=== PATIENT | female | born 1945 | race African-American/Black ===

== ENCOUNTER → 2016-06-30 | Outpatient (CLI) | payer MEDICARE, OTHER ==
[2014-03-11 09:51] VITALS: BP 185/91
[~2016-06-30] MED LIST: AMLO5TAB2 PO; ATEN50TA PO; FERR-26 PO; Flexeril; IOHEXOL 180 MG/ML 10 ML VIAL. ONE; LISI10TA2 PO; OXYC-323 PO; PANT40TA5 PO; TRAM50TA PO; methylPREDNISolone ACETATE 40 MG/ML VIAL. ONE; methylPREDNISolone ACETATE 80 MG/ML VIAL. ONE
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
== END | disposition home or self-care (01) ==
LOC: PNCL 08:26
PROVIDERS: ATTEND Anesthesiology
DX: M50.123 Cervical disc disorder at C6-C7 level with radiculopathy (principal); M96.1 Postlaminectomy syndrome, not elsewhere classified; M19.90 Unspecified osteoarthritis, unspecified site; I25.10 Atherosclerotic heart disease of native coronary artery without angina pectoris; I10 Essential (primary) hypertension
CPT/HCPCS: 62321; J1030; J1040

== ENCOUNTER 2016-07-06 20:53 | Emergency (ER) | payer MEDICARE, OTHER ==
[~2016-07-06 20:53] MED LIST changes: -IOHEXOL 180 MG/ML 10 ML VIAL. ONE; -methylPREDNISolone ACETATE 40 MG/ML VIAL. ONE; -methylPREDNISolone ACETATE 80 MG/ML VIAL. ONE
[2016-07-06 21:31] LABS: BILIRUBIN,URINE NEGATIVE (NEG); GLUCOSE,URINE NEGATIVE (NEG); NITRITE,URINE NEGATIVE (NEG); PROTEIN,URINE NEGATIVE (NEG-TRACE); UROBILINOGEN,URINE 0.2 mg/dL (0.2 mg/dL)
[2016-07-06 21:33] LABS: BASO # 0.1 x10^3/uL (0.0-0.2); BASO % 1 % (0-3); EOS % 1 % (0-3); HEMATOCRIT 41.7 % (36.0-47.0); HEMOGLOBIN 13.2 g/dL (12.0-15.5); LYMPH # 2.4 x10^3/uL (1.0-4.8); LYMPH % 28 % (24-48); MEAN CORPUSCULAR HEMOGLOBIN 26 pg (25-35); MEAN CORPUSCULAR HGB CONC 32 g/dL (31-37); MEAN CORPUSCULAR VOLUME 83 fL (79-100); MONO % 9 % (0-9); NEUT % 61 % (31-73); PLATELET COUNT 396 x10^3/uL (140-400); RED BLOOD COUNT 5.05 x10^6/uL (3.50-5.40); RED CELL DISTRIBUTION WIDTH 27.1 % (11.5-14.5); WHITE BLOOD COUNT 8.6 x10^3/uL (4.0-11.0)
[2016-07-06 21:38] LABS: BACTERIA,URINE 0 /HPF (0-FEW); RBC,URINE OCC /HPF (0-2); SQUAMOUS EPITHELIAL CELL,UR OCC /LPF; WBC,URINE 0 /HPF (0-4)
[2016-07-06 21:44] LABS: CALCIUM 9.2 mg/dL (8.5-10.1); CREATININE 1.2 mg/dL (0.6-1.0); GFR 53.9; POTASSIUM 4.1 mmol/L (3.5-5.1)
[2016-07-06] MEDS ORDERED: FENTANYL PF 100 MCG/2 ML VIAL. IV ONE (21:45)
--- NOTE | 2016-07-06 21:46 | PHYS DOC ---
Past Medical History Past Medical History: Hypertension, Other Additional Past Medical Histor: chronic lower back pain Past Surgical History: Cholecystectomy, Other Additional Past Surgical Histo: right mastectomy; cervical neck; left bunionectomy,CARDIAC STENT Alcohol Use: None Drug Use: None Adult General Chief Complaint Chief Complaint: FLANK PAIN [facility] HPI This is a 70-year-old female who is presenting with some right-sided abdominal pain that does radiate somewhat into her flank area as well. She denies any dysuria or hematuria. She states it developed rather suddenly several hours ago. She's never had symptoms like this before. She states she has had a laparatomy and still has her appendix and gallbladder. She denies any history of stones. She has one cardiac stent and hypertension. She rates her pain a 7/ 10 on the pain scale. She denies any fever or chills. She denies any nausea or vomiting. She denies any chest pain or shortness of breath. States she's had normal bowel movements. Review of Systems Review of Systems Constitutional: Denies fever or chills [] Eyes: Denies change in visual acuity, redness, or eye pain [] HENT: Denies nasal congestion or sore throat [] Respiratory: Denies cough or shortness of breath [] Cardiovascular: No additional information not addressed in HPI [] GI: Has abdominal pain, denies nausea, denies vomiting, denies bloody stools or diarrhea [] : Denies dysuria or hematuria [] Musculoskeletal: Denies back pain or joint pain [] Integument: Denies rash or skin lesions [] Neurologic: Denies headache, focal weakness or sensory changes [] Endocrine: Denies polyuria or polydipsia [] Current Medications Current Medications Current Medications Medications (Trade) Dose Ordered Sig/[facility] Start Time Stop Time Status Last Admin Dose Admin Fentanyl Citrate (Fentanyl 2ml Vial) 50 mcg 1X ONCE 07/06/16 21:45 07/06/16 21:46 DC 07/06/16 22:02 50 MCG Allergies Allergies Allergies Coded Allergies Type Severity Reaction Last Updated Verified aspirin Allergy Unknown 07/21/13 Yes codeine Allergy Unknown 07/21/13 Yes diazepam Allergy Unknown 07/21/13 Yes hydrocodone Allergy Unknown 07/21/13 Yes ibuprofen Allergy Unknown 07/21/13 Yes morphine Allergy Unknown 07/21/13 Yes promethazine Allergy Unknown 07/21/13 Yes Uncoded Allergies Type Severity Reaction Last Updated Verified IM SHOTS Allergy Unknown 07/21/13 Physical Exam Physical Exam Constitutional: Well developed, well nourished, no acute distress, non-toxic appearance. [] HENT: Normocephalic, atraumatic, bilateral external ears normal, oropharynx moist, no oral exudates, nose normal. [] Eyes: PERRLA, EOMI, conjunctiva normal, no discharge. [] Neck: Normal range of motion, no tenderness, supple, no stridor. [] Cardiovascular:Heart rate regular rhythm, no murmur [] Lungs & Thorax: Bilateral breath sounds clear to auscultation [] Abdomen: Bowel sounds normal, soft, mild RLQ tenderness, no masses, no pulsatile masses. [] Skin: Warm, dry, no erythema, no rash. [] Back: No tenderness, right CVA tenderness. [] Extremities: No tenderness, no cyanosis, no clubbing, ROM intact, no edema. [] Neurologic: Alert and oriented X 3, normal motor function, normal sensory function, no focal deficits noted. [] Psychologic: Affect normal, judgement normal, mood normal. [] Current Patient Data Vital Signs Vital Signs Date Time Temp Pulse Resp B/P Pulse Ox O2 Delivery O2 Flow Rate FiO2 07/06/16 22:02 16 Nasal Cannula 07/06/16 20:58 97.7 101 199/94 97 97.7 Lab Values Laboratory Tests Test 07/06/16 21:18 White Blood Count 8.6x10^3/uL (4.0-11.0) Red Blood Count 5.05x10^6/uL (3.50-5.40) Hemoglobin 13.2g/dL (12.0-15.5) Hematocrit 41.7% (36.0-47.0) Mean Corpuscular Volume 83fL (79-100) Mean Corpuscular Hemoglobin 26pg (25-35) Mean Corpuscular Hemoglobin Concent 32g/dL (31-37) Red Cell Distribution Width 27.1% (11.5-14.5) H Platelet Count 396x10^3/uL (140-400) Neutrophils (%) (Auto) 61% (31-73) Lymphocytes (%) (Auto) 28% (24-48) Monocytes (%) (Auto) 9% (0-9) Eosinophils (%) (Auto) 1% (0-3) Basophils (%) (Auto) 1% (0-3) Neutrophils # (Auto) 5.3x10^3uL (1.8-7.7) Lymphocytes # (Auto) 2.4x10^3/uL (1.0-4.8) Monocytes # (Auto) 0.8x10^3/uL (0.0-1.1) Eosinophils # (Auto) 0.1x10^3/uL (0.0-0.7) Basophils # (Auto) 0.1x10^3/uL (0.0-0.2) Platelet Estimate Pending Urine Collection Type Unknown Urine Color Yellow Urine Clarity Clear Urine pH 6.0 Urine Specific [place] 1.015 Urine Protein Negativemg/dL (NEG-TRACE) Urine Glucose (UA) Negativemg/dL (NEG) Urine Ketones (Stick) Negativemg/dL (NEG) Urine Blood Negative (NEG) Urine Nitrite Negative (NEG) Urine Bilirubin Negative (NEG) Urine Urobilinogen Dipstick 0.2mg/dL (0.2 mg/dL) Urine Leukocyte Esterase Negative (NEG) Urine RBC Occ/HPF (0-2) Urine WBC 0/HPF (0-4) Urine Squamous Epithelial Cells Occ/LPF Urine Bacteria 0/HPF (0-FEW) Urine Mucus Slight/LPF Sodium Level 143mmol/L (136-145) Potassium Level 4.1mmol/L (3.5-5.1) Chloride Level 104mmol/L (98-107) Carbon Dioxide Level 26mmol/L (21-32) Anion Gap 13 (6-14) Blood Urea Nitrogen 14mg/dL (7-20) Creatinine 1.2mg/dL (0.6-1.0) H Estimated GFR (Cockcroft-Gault) 53.9 Glucose Level 104mg/dL (70-99) H Calcium Level 9.2mg/dL (8.5-10.1) Troponin I Quantitative < 0.017ng/mL (0.000-0.055) Laboratory Tests 07/06/16 21:18 Laboratory Tests 07/06/16 21:18 EKG EKG EKG as interpreted by me shows a sinus rhythm with a rate of 96 bpm. There are some lateral ST findings in V5 and V6 that are borderline but there is no STEMI criteria on this EKG. Intervals are normal. Radiology/Procedures Radiology/Procedures IMPRESSION 1. 2 mm left renal stone and possible punctate bilateral renal stones. There is no evidence of obstructive uropathy. 2. 2.0 cm lesion within the right kidney, the stability of which compared to the prior studies favors a benign cyst. 3. 2 mm and 3 mm right middle and lower lobe nodules, the larger of which is new compared to the prior study. Followup can be performed according to Fleischner society criteria. 4. Chronic mild compression deformities of T11 and L2, possibly pathologic given lytic and sclerotic changes in these vertebral segments. There is also mixed lytic and sclerotic change within the sacrum. The long-term stability favors in etiology such as Paget's disease rather than metastatic disease. Correlate with clinical history. Course & Med Decision Making Course & Med Decision Making Pertinent Labs and Imaging studies reviewed. (See chart for details) This 70-year-old female has some right-sided lateral abdominal pain and right- sided flank pain and will have full laboratory workup and a CT of her abdomen/ pelvis. At this time her CBC is unremarkable. Her urine does not demonstrate any signs of infection or blood. She does not appear to be in any acute distress. My reassessment, the patient feels improved after pain medications. Her laboratory workup is unremarkable. There are no signs of infection. Her CT demonstrates some chronic findings in her T11 and L2 vertebrae that are likely lytic and sclerotic changes that are chronic. She also has some right middle and right lower lobe nodules which are new compared to a prior study. I indicated these findings to the patient and she will follow up with her primary care doctor. I see no indication at this time to admit the patient a hospital in light of her nonacute findings and normal laboratory workup. She will follow up closely with Dr. Segura in the next 2-3 days and I will provide her pain medication until that time. Dragon Disclaimer Dragon Disclaimer This electronic medical record was generated, in whole or in part, using a voice recognition dictation system. Departure Departure Impression: Primary Impression: Right flank pain Disposition: 01 HOME, SELF-CARE Admitting Physician: Other Condition: STABLE Referrals: LYDIA SEGURA MD (PCP) Patient Instructions: Flank Pain, [id number] Additional Instructions: Please take your pain medication as prescribed. Return to the ER if you develop any worsening of your symptoms. Follow up with Dr. Segura in the next 2-3 days for your lung findings and your flank pain. Scripts Oxycodone/Apap 5-325 (Percocet 5-325 Mg Tablet)1 Each Tablet1 Tab PO PRN Q6HRS PRN PAIN #14 TAB Ref 0 Prov:CYNTHIA CALHOUN DO 07/06/16 CYNTHIA CALHOUN DO Jul 06, 2016 21:46
--- NOTE | 2016-07-06 22:02 | RAD ---
PROCEDURE Abdomen and pelvis CT without intravenous contrast. HISTORY Right flank pain. TECHNIQUE Computed tomographic images the and pelvis were obtained without contrast. One or more of the following individualized dose reduction techniques were utilized for this examination: 1. Automated exposure control; 2. Adjustment of the mA and/or kV according to patient size; 3. Use of iterative reconstruction technique. COMPARISON None. FINDINGS Evaluation of the lower thorax demonstrates a 2 mm nodule within the right middle lobe and 3 mm nodule within the right lower lobe. There is lower lobe atelectasis or scarring. There is a moderate hiatal hernia. There is coronary artery atherosclerosis. No hepatic lesion is seen. The gallbladder is surgically absent. The pancreas, spleen and adrenal glands are unremarkable. There is a 1-2 mm nonobstructing stone within the lower midzone of the left kidney. There may be punctate stones within the upper poles of both kidneys. There is no evidence of obstructive uropathy. There is a 2.0 cm hypodense lesion within the anterior lower midzone of the right kidney, likely a cyst. No abnormally thickened or dilated loop of bowel is seen. There is no pathologically enlarged lymph node. The uterus and ovaries are unremarkable. There are chronic appearing mild compression fractures of T11 and L2, both of which appear to be pathologic fractures associated with mixed lytic and sclerotic lesions. There are also mixed lytic and sclerotic changes involving the sacrum. IMPRESSION 1. 2 mm left renal stone and possible punctate bilateral renal stones. There is no evidence of obstructive uropathy. 2. 2.0 cm lesion within the right kidney, the stability of which compared to the prior studies favors a benign cyst. 3. 2 mm and 3 mm right middle and lower lobe nodules, the larger of which is new compared to the prior study. Followup can be performed according to Fleischner society criteria. 4. Chronic mild compression deformities of T11 and L2, possibly pathologic given lytic and sclerotic changes in these vertebral segments. There is also mixed lytic and sclerotic change within the sacrum. The long-term stability favors in etiology such as Paget's disease rather than metastatic disease. Correlate with clinical history. Electronically signed by: Shalonda Levine (Jul 06, 2016 22:01:27)
[2016-07-06] MEDS ORDERED: OXYC-323 PO (22:18)
[2016-07-06 22:21] VITALS: BP 145/90
[2016-07-06 22:39] LABS: PLT ESTIMATE ADEQUATE (ADEQUATE)
[2016-07-06 22:43] LABS: ANISOCYTOSIS MARKED; POIKILOCYTOSIS SLIGHT; TARGET CELLS PRESENT
[2016-07-06 22:44] LABS: OVALOCYTES FEW
--- NOTE | 2016-07-07 06:38 | EKG ---
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
== END 2016-07-06 22:40 | disposition home or self-care (01) ==
LOC: ER 20:53
DX: R10.9 Unspecified abdominal pain (principal); R10.31 Right lower quadrant pain; I10 Essential (primary) hypertension; G89.29 Other chronic pain; Z90.49 Acquired absence of other specified parts of digestive tract; Z88.6 Allergy status to analgesic agent; Z88.5 Allergy status to narcotic agent; Z88.8 Allergy status to other drugs, medicaments and biological substances
CPT/HCPCS: 36415; 74176; 80048; 81001; 84484; 85007; 85027; 93005; 96374; 99285; J3010

== ENCOUNTER 2016-07-10 19:11 | Inpatient (IN) | payer MEDICARE, OTHER ==
[~2016-07-10] VITALS: Ht 165.1 cm; Wt 83.5 kg
--- NOTE | 2016-07-10 20:11 | PHYS DOC ---
Past Medical History Past Medical History: Hypertension, Other Additional Past Medical Histor: chronic lower back pain Past Surgical History: Cholecystectomy, Other Additional Past Surgical Histo: right mastectomy; cervical neck; left bunionectomy,CARDIAC STENT Alcohol Use: None Drug Use: None Adult General Chief Complaint Chief Complaint: HIP PAIN HPI HPI Patient is a 70 year old female presents emergency department stating that she has having right lower back pain down into her right hip. Patient states that she was seen here a few days ago for the same pain and discomfort. Plenty looking into the chart she was seen here for right flank pain with a kidney stone noted. She was discharged that time with Percocet. Patient states that she has been taken Flexeril and Percocet for the pain and discomfort with no relief. Patient denies any numbness or tingling down to the lower extremity. She states that she has called her primary care physician Sunday and again today without any return call. She denies any new injury. She denies any loss of bowel or bladder. Patient at this time does not have any complaints of cough and shortness of breath or difficulty breathing. Review of Systems Review of Systems Constitutional: Denies fever or chills [] Eyes: Denies change in visual acuity, redness, or eye pain [] HENT: Denies nasal congestion or sore throat [] Respiratory: Denies cough or shortness of breath [] Cardiovascular: No additional information not addressed in HPI [] GI: Denies abdominal pain, nausea, vomiting, bloody stools or diarrhea [] : Denies dysuria or hematuria [] Musculoskeletal: chronic low back pain denies joint pain [] Integument: Denies rash or skin lesions [] Neurologic: Denies headache, focal weakness or sensory changes [] Current Medications Current Medications Current Medications Medications (Trade) Dose Ordered Sig/[facility] Start Time Stop Time Status Last Admin Dose Admin Fentanyl Citrate (Fentanyl 2ml Vial) 50 mcg 1X ONCE 07/10/16 20:15 07/10/16 20:16 DC 07/10/16 20:31 50 MCG Methylprednisolone Sodium Succinate (Solu-Medrol 125mg Vial) 125 mg 1X ONCE 07/10/16 20:15 07/10/16 20:16 DC 07/10/16 20:31 125 MG Allergies Allergies Allergies Coded Allergies Type Severity Reaction Last Updated Verified aspirin Allergy Unknown 07/21/13 Yes codeine Allergy Unknown 07/21/13 Yes diazepam Allergy Unknown 07/21/13 Yes hydrocodone Allergy Unknown 07/21/13 Yes ibuprofen Allergy Unknown 07/21/13 Yes morphine Allergy Unknown 07/21/13 Yes promethazine Allergy Unknown 07/21/13 Yes Uncoded Allergies Type Severity Reaction Last Updated Verified IM SHOTS Allergy Unknown 07/21/13 Physical Exam Physical Exam Constitutional: Well developed, well nourished, no acute distress, non-toxic appearance. [] HENT: Normocephalic, atraumatic, bilateral external ears normal, oropharynx moist, no oral exudates, nose normal. [] Eyes: PERRLA, EOMI, conjunctiva normal, no discharge. [] Neck: Normal range of motion, no tenderness, supple, no stridor. [] Cardiovascular:Heart rate regular rhythm, no murmur [] Lungs & Thorax: Bilateral breath sounds clear to auscultation [] Skin: Warm, dry, no erythema, no rash. [] Back: right lower back tenderness Extremities: No tenderness, no cyanosis, no clubbing, ROM intact, no edema. Peripheral pulses 2+ cap refill brisk less than 2 seconds. Patient with good sensation noted to the lower extremities. Neurologic: Alert and oriented X 3, normal motor function, normal sensory function, no focal deficits noted. [] Psychologic: Affect normal, judgement normal, mood normal. [] Current Patient Data Vital Signs Vital Signs Date Time Temp Pulse Resp B/P Pulse Ox O2 Delivery O2 Flow Rate FiO2 07/10/16 20:31 Room Air 07/10/16 19:18 98.1 92 24 214/100 100 98.1 EKG EKG [] Radiology/Procedures Radiology/Procedures [] Course & Med Decision Making Course & Med Decision Making Pertinent Labs and Imaging studies reviewed. (See chart for details) [address] Balbuena in regards to patient's inability to get back pain under control. Patient had used Percocet and Flexeril at home. She was provided with 50 mics of fentanyl here in the emergency department as well as Solu- Medrol with no relief. He didn't into the hospital. Patient did have a CT scan done on the of abdomen and pelvis. Questionable Paget's disease of the lower back versus metastatic issues. I suspect further workup will need to be completed with admission. Patient agrees with admission at this time. Orders written. [] Dragon Disclaimer Dragon Disclaimer This electronic medical record was generated, in whole or in part, using a voice recognition dictation system. Departure Departure Impression: Primary Impression: Back pain Disposition: ADMITTED INPATIENT Admitting Physician: Jen Balbuena Condition: STABLE Referrals: LYDIA FITZPATRICK MD (PCP) JADE YIP APRN Jul 10, 2016 20:11
[2016-07-10] MEDS ORDERED: fentaNYL PF VIAL 100 MCG/2 ML VIAL IM ONE (20:15)
[2016-07-10] MEDS ORDERED: methylPREDNISolone SOD SUCC PF 125 MG/2 ML VIAL. IM ONE (20:15)
[2016-07-10] MEDS ORDERED: ONDANSETRON PF 4 MG/2 ML VIAL. IV PRN (21:30)
[2016-07-10 21:58] LABS: BASO % 1 % (0-3); EOS % 1 % (0-3); HEMATOCRIT 40.5 % (36.0-47.0); HEMOGLOBIN 13.1 g/dL (12.0-15.5); LYMPH # 2.1 x10^3/uL (1.0-4.8); LYMPH % 24 % (24-48); MEAN CORPUSCULAR HEMOGLOBIN 27 pg (25-35); MEAN CORPUSCULAR HGB CONC 32 g/dL (31-37); MEAN CORPUSCULAR VOLUME 82 fL (79-100); MONO % 6 % (0-9); NEUT % 69 % (31-73); PLATELET COUNT 367 x10^3/uL (140-400); RED BLOOD COUNT 4.93 x10^6/uL (3.50-5.40); RED CELL DISTRIBUTION WIDTH 26.3 % (11.5-14.5); WHITE BLOOD COUNT 8.7 x10^3/uL (4.0-11.0)
--- NOTE | 2016-07-10 22:01 | ACF ---
Admission Forms Criteria BACK PAIN Clinical Indications for Admission to Inpatient Care (Place 'X' for any and all applicable criteria): Admission is indicated for ANY ONE of the following (1)(2)(3)(4)(5)(6): [X]I. Inpatient admission required rather than observation care (Also use Back Pain: Observation Care as appropriate) because of ANY ONE of the following [ ]a) Severe pain requiring acute inpatient management [ ]b) Immediate inpatient surgery [X]c) Other condition, treatment or monitoring requiring inpatient admission [ ]II. Spine fracture with significant damage or threat of damage to vertebral column or spinal cord [ ]III. Progressive or severe neurologic deficit [ ]IV. Suspected spinal infection (e.g., epidural abscess, vertebral osteomyelitis)(10) [ ]V. Suspected cause requires inpatient treatment (eg, aortic dissection) [ ]. Cauda equina syndrome as indicated by ANY ONE of the following (9): [ ]a) Bowel dysfunction [ ]b) Bladder dysfunction [ ]c) Saddle anesthesia [ ]d) Neurologic abnormality suggesting cauda equina impingement Extended stay beyond goal length of stay may be needed for (3)(25): [ ]a) Spinal cord compression from stenosis, disk, or tumor (8)(9) [ ]b) Traumatic or pathologic vertebral fracture (33) [ ]c) Vertebral infection(10) [ ]d) Severe pain that is difficult to control [ ]e) Older patients(65 years or older) The original [employer] content created by [employer] has been revised. The portions of the content which have been revised are identified through the use of italic text or in bold, and [facility] has neither reviewed nor approved the modified material. All other unmodified content is copyright [employer]. Please see references footnoted in the original [facility] Admission Criteria Met?: Yes BRIDGET DUPREE Jul 10, 2016 22:00
[2016-07-10 22:13] LABS: CALCIUM 9.6 mg/dL (8.5-10.1); GFR 66.5; POTASSIUM 3.9 mmol/L (3.5-5.1)
[2016-07-10 22:19] LABS: ALBUMIN 4.3 g/dL (3.4-5.0); ALBUMIN/GLOBULIN RATIO 1.2 (1.0-1.7); TOTAL BILIRUBIN 0.3 mg/dL (0.2-1.0)
[2016-07-10 22:35] LABS: ANISOCYTOSIS MOD; PLT ESTIMATE ADEQUATE (ADEQUATE); POIKILOCYTOSIS SLIGHT
[2016-07-10] MEDS: HYDROmorphone 2 MG/ML VIAL IV PRN (22:38)
[2016-07-10] MEDS ORDERED: ASPI-482 PO (22:48)
[2016-07-10 23:08] VITALS: BP 172/95
[2016-07-11] MEDS: HYDROmorphone 2 MG/ML VIAL IV PRN ×3 (01:57→06:40)
[2016-07-11 03:10] VITALS: BP 153/77
[2016-07-11 04:47] LABS: BASO % 0 % (0-3); EOS % 0 % (0-3); HEMATOCRIT 38.9 % (36.0-47.0); HEMOGLOBIN 12.3 g/dL (12.0-15.5); LYMPH # 0.6 x10^3/uL (1.0-4.8); LYMPH % 8 % (24-48); MEAN CORPUSCULAR HEMOGLOBIN 26 pg (25-35); MEAN CORPUSCULAR HGB CONC 32 g/dL (31-37); MEAN CORPUSCULAR VOLUME 83 fL (79-100); MONO % 1 % (0-9); NEUT % 91 % (31-73); PLATELET COUNT 352 x10^3/uL (140-400); RED BLOOD COUNT 4.68 x10^6/uL (3.50-5.40); RED CELL DISTRIBUTION WIDTH 26.2 % (11.5-14.5); WHITE BLOOD COUNT 7.4 x10^3/uL (4.0-11.0)
[2016-07-11 05:05] LABS: CALCIUM 9.5 mg/dL (8.5-10.1); CREATININE 1.1 mg/dL (0.6-1.0); GFR 59.6; POTASSIUM 4.6 mmol/L (3.5-5.1)
[2016-07-11 06:54] LABS: ANISOCYTOSIS MARKED; PLT ESTIMATE ADEQUATE (ADEQUATE)
[2016-07-11 07:00] VITALS: BP 146/78
[2016-07-11] MEDS: LISINOPRIL 10 MG TABLET PO SCH (08:31)
[2016-07-11] MEDS: ASPIRIN ENTERIC COATED 81 MG TABLET.DR. PO SCH (08:31)
[2016-07-11] MEDS: FERROUS SULFATE 325 MG TABLET. PO SCH (08:31)
[2016-07-11] MEDS: amLODIPine BESYLATE 5 MG TABLET PO SCH (08:32)
[2016-07-11] MEDS: TRAMADOL 50 MG TABLET. PO PRN ×2 (08:32→17:31)
[2016-07-11] MEDS: PANTOPRAZOLE 40 MG TABLET.DR. PO SCH (08:32)
--- NOTE | 2016-07-11 08:41 | PDOC ---
Provider Note Provider Note dictated, back pain, acute decompensation, better now but was to have MRI and NS consult as OP, known lytic changes from Pagets vs cancer ANGELINE AGUIRRE MD Jul 11, 2016 08:41
[2016-07-11] MEDS: ALPRAZolam 0.25 MG TABLET PO PRN ×2 (10:58→20:51)
[2016-07-11 11:00] VITALS: BP 151/77
[2016-07-11] MEDS: OXYCODONE/APAP 5/325 TABLET. PO PRN ×2 (12:22→20:51)
--- NOTE | 2016-07-11 12:34 | RAD ---
PROCEDURE Lumbar spine MRI without contrast. HISTORY Pain. TECHNIQUE Multiplanar and multi sequence magnetic resonance imaging of the lumbar spine was performed without contrast. COMPARISON None. FINDINGS There is grade 1 anterolisthesis of L4 on L5, measuring 5 mm. There is minimal grade 1 anterolisthesis of L5 on S1, measuring 2 mm. There is grade 1 anterolisthesis of L1 on L2 measuring 4 mm, a component of which is due to a mild chronic L2 compression fracture with slight retropulsion of the L2 cortex into the central canal. There is heterogeneous signal within T11 with associated mild decreased T1 vertebral body height, also likely due to a chronic fracture. There is also diffusely heterogeneous signal throughout the remainder of the vertebral and sacral marrow, likely due to fatty marrow placement. The conus terminates at L1. There is a filum lipoma, measuring 2 mm in caliber. There is no evidence of a tethered cord. There are small simple appearing renal cysts. There is suspected slight congenital narrowing of the central canal at the lumbar levels. There is slight epidural lipomatosis. At L1-L2, there is a disc bulge. There is mild facet arthropathy. There is slight hypertrophy of the ligamentum flavum. There is mild left foraminal stenosis. At L2-L3, there is a disc bulge and endplate remodeling. There is mild facet arthropathy. There is hypertrophy of the ligamentum flavum. There is mild left greater than right foraminal stenosis. There is minimal central canal stenosis. At L3-L4, there is a disc bulge and endplate remodeling. There is mild facet arthropathy. There is hypertrophy of the ligamentum flavum. There is no stenosis. At L4-L5, there is a disc bulge and endplate remodeling. There is severe facet arthropathy. There is hypertrophy of the ligamentum flavum. There is grade 1 anterolisthesis. There is mild bilateral foraminal stenosis. There is severe central canal stenosis. At L5-S1, there is a diffuse disc bulge with posterior lateral endplate osteophytosis. There is mild facet arthropathy. There is mild to moderate bilateral foraminal stenosis. There is mild central canal stenosis. IMPRESSION 1. Multilevel degenerative change throughout the lumbar spine, resulting in stenosis as described in detail above. Findings are most significant at L4-L5, resulting in severe central canal stenosis. These findings are similar compared to the prior study. 2. Stable mild chronic compression deformities of T11 and L2. There is heterogeneous marrow signal at these levels which may be due to heterogeneous marrow replacement, Paget's disease or pathologic fractures. The stability compared to the prior study favors benignity. 3. Suspected slight congenital narrowing of the central canal and mild epidural lipomatosis. 4. Small filum lipoma. 5. Grade 1 anterolisthesis of L4 on L5. Electronically signed by: Shalonda Levine (Jul 11, 2016 12:34:02)
--- NOTE | 2016-07-11 14:11 | PDOC ---
SUBJECTIVE Subjective Pt seen examined. Full consult to follow. Exam suggests potential right hip pathology. Will check MRI right hip. OBJECTIVE Vital Signs Vital Signs Date Time Temp Pulse Resp B/P Pulse Ox O2 Delivery O2 Flow Rate FiO2 07/11/16 12:22 18 99 Room Air 07/11/16 11:00 98.0 87 16 151/77 99 Room Air 98.0 07/11/16 09:32 19 97 Room Air 07/11/16 08:32 18 97 Room Air 07/11/16 08:32 73 146/78 07/11/16 08:31 73 146/78 07/11/16 08:00 Room Air 07/11/16 07:10 18 97 Room Air 07/11/16 07:00 97.7 73 18 146/78 97 Room Air 97.7 07/11/16 06:40 98 Room Air 07/11/16 04:11 18 98 Room Air 07/11/16 03:10 97.7 72 20 153/77 98 Room Air 97.7 07/11/16 01:57 96 Room Air 07/10/16 23:08 97.7 78 16 172/95 96 Room Air 97.7 07/10/16 22:38 18 97 07/10/16 22:30 Room Air 07/10/16 21:55 89 18 169/81 97 Room Air 07/10/16 20:31 Room Air 07/10/16 19:18 98.1 92 24 214/100 100 Room Air 98.1 I & O Intake and Output 07/11/16 06:59 Intake Total 600 ml Balance 600 ml Intake Oral 600 ml # Voids 3 COMMENT Lab Laboratory Tests Test 07/10/16 21:50 07/11/16 04:27 White Blood Count 8.7x10^3/uL (4.0-11.0) 7.4x10^3/uL (4.0-11.0) Red Blood Count 4.93x10^6/uL (3.50-5.40) 4.68x10^6/uL (3.50-5.40) Hemoglobin 13.1g/dL (12.0-15.5) 12.3g/dL (12.0-15.5) Hematocrit 40.5% (36.0-47.0) 38.9% (36.0-47.0) Mean Corpuscular Volume 82fL (79-100) 83fL (79-100) Mean Corpuscular Hemoglobin 27pg (25-35) 26pg (25-35) Mean Corpuscular Hemoglobin Concent 32g/dL (31-37) 32g/dL (31-37) Red Cell Distribution Width 26.3% (11.5-14.5) 26.2% (11.5-14.5) Platelet Count 367x10^3/uL (140-400) 352x10^3/uL (140-400) Neutrophils (%) (Auto) 69% (31-73) 91% (31-73) Lymphocytes (%) (Auto) 24% (24-48) 8% (24-48) Monocytes (%) (Auto) 6% (0-9) 1% (0-9) Eosinophils (%) (Auto) 1% (0-3) 0% (0-3) Basophils (%) (Auto) 1% (0-3) 0% (0-3) Neutrophils # (Auto) 6.0x10^3uL (1.8-7.7) 6.7x10^3uL (1.8-7.7) Lymphocytes # (Auto) 2.1x10^3/uL (1.0-4.8) 0.6x10^3/uL (1.0-4.8) Monocytes # (Auto) 0.5x10^3/uL (0.0-1.1) 0.1x10^3/uL (0.0-1.1) Eosinophils # (Auto) 0.1x10^3/uL (0.0-0.7) 0.0x10^3/uL (0.0-0.7) Basophils # (Auto) 0.0x10^3/uL (0.0-0.2) 0.0x10^3/uL (0.0-0.2) Platelet Estimate Adequate (ADEQUATE) Adequate (ADEQUATE) Poikilocytosis Slight Anisocytosis Mod Marked Sodium Level 139mmol/L (136-145) 137mmol/L (136-145) Potassium Level 3.9mmol/L (3.5-5.1) 4.6mmol/L (3.5-5.1) Chloride Level 102mmol/L (98-107) 101mmol/L (98-107) Carbon Dioxide Level 25mmol/L (21-32) 23mmol/L (21-32) Anion Gap 12 (6-14) 13 (6-14) Blood Urea Nitrogen 23mg/dL (7-20) 21mg/dL (7-20) Creatinine 1.0mg/dL (0.6-1.0) 1.1mg/dL (0.6-1.0) Estimated GFR (Cockcroft-Gault) 66.5 59.6 BUN/Creatinine Ratio 23 (6-20) Glucose Level 115mg/dL (70-99) 152mg/dL (70-99) Calcium Level 9.6mg/dL (8.5-10.1) 9.5mg/dL (8.5-10.1) Total Bilirubin 0.3mg/dL (0.2-1.0) Aspartate Amino Transf (AST/SGOT) 15U/L (15-37) Alanine Aminotransferase (ALT/SGPT) 21U/L (14-59) Alkaline Phosphatase 343U/L (46-116) Total Protein 8.0g/dL (6.4-8.2) Albumin 4.3g/dL (3.4-5.0) Albumin/Globulin Ratio 1.2 (1.0-1.7) Segmented Neutrophils % 85% (35-66) Lymphocytes % 11% (24-48) Monocytes % 4% (0-10) GISELLE SALAZAR MD Jul 11, 2016 14:11
[2016-07-11 15:00] VITALS: BP 120/59
[2016-07-11] MEDS ORDERED: GADOBUTROL 10 MMOL/10 ML VIAL IV ONE (15:30)
--- NOTE | 2016-07-11 17:01 | RAD ---
PROCEDURE MRI study of the right hip with and without contrast HISTORY Right hip pain for 2 months. No known injury. TECHNIQUE Pre and post contrast enhanced MRI sequences of the right hip were performed. A total of 8 milliliters of Gadavist was given intravenously. COMPARISON None available. FINDINGS No bone marrow edema or fracture or marrow infiltrative process or avascular necrosis is seen. No hip joint effusion is seen. No abnormal enhancement of the hip joint is seen and therefore no synovitis is seen. The acetabular labrum is intact. No paralabral ganglion cyst is seen. The conjoined hamstring tendon is intact and no ischial tuberosity bursitis is seen. The iliopsoas tendon is intact and no iliopsoas bursitis is seen. Mild tendinosis of the gluteus anuradha tendon is seen at the level of the greater trochanter. No greater trochanteric bursitis is seen. No muscle edema is seen. No soft tissue mass or fluid collection or abscess is evident. No abnormal soft tissue enhancement is seen. IMPRESSION Mild tendinosis of the gluteus anuradha tendon. Otherwise, unremarkable MRI study of the right hip. Electronically signed by: Julio Cesar Velasquez MD (Jul 11, 2016 16:59:38)
--- NOTE | 2016-07-11 19:11 | HP ---
ADMIT DATE: 07/11/2016 ADMISSION DIAGNOSIS: Intractable back pain. HISTORY OF PRESENT ILLNESS: This is a 70-year-old female who presented to the Emergency Room because of right lower back pain down into her right hip. She had been seen a few days previously for the similar pain. She was treated with Percocet and Flexeril which did not control her pain. She has a history of Paget's. She was to be getting an MRI of her lumbar spine and to see Dr. Barkley for potential spinal stenosis or even possibility of a malignancy causing her pain. She is admitted for further evaluation, treatment and pain control. Overnight, she has had improvement in her pain and when I examined her this morning, her pain is controlled. PAST MEDICAL HISTORY: Hypertension, back pain, breast cancer and heart disease. PROCEDURES AND SURGERIES: Include cardiac stent, left bunionectomy, surgery on her cervical neck, right mastectomy and cholecystectomy. ALLERGIES: SHE HAS ALLERGIES TO ASPIRIN, CODEINE, DIAZEPAM, HYDROCODONE, IBUPROFEN, MORPHINE AND PROMETHAZINE, MOST OF THOSE APPEAR TO BE INTOLERANCES, ARE NOT TRUE ALLERGIES. HOME MEDICATIONS: Include amlodipine 5 mg daily, aspirin 81 daily, iron sulfate 325 daily, lisinopril 10 daily, oxycodone/APAP 5/325 1-2 q. 4-6 hours p.r.n., pantoprazole 40 mg daily, tramadol 50 mg q. 6 hours p.r.n. and Flexeril unknown dose. FAMILY HISTORY: Noncontributory. SOCIAL HISTORY: No tobacco or alcohol. She is unable to live independently and has routine office care. REVIEW OF SYSTEMS: HEENT: No allergy or cold symptoms. CONSTITUTIONAL: No fever, chills or weight loss. CARDIAC: No chest pain, palpitations. PULMONARY: No cough or wheezing. GASTROINTESTINAL: No nausea, vomiting or change in bowels. GENITOURINARY: No dysuria. MUSCULOSKELETAL: As above. NEUROLOGIC: Negative for headaches, seizures. PSYCHIATRIC: Negative for depression or malingering. PHYSICAL EXAMINATION: VITAL SIGNS: Stable. Blood pressure is now controlled as her pain is controlled. Respiratory rate is normal. Room air oxygen saturations are normal. GENERAL: She is not in acute distress. HEENT: Unremarkable. NECK: Supple. CARDIOVASCULAR: Heart regular rate and rhythm without murmur. LUNGS: Clear to auscultation bilaterally. ABDOMEN: Soft, nondistended, nontender. EXTREMITIES: There is pain in the right sacroiliac area and right hip area with some sciatic type radicular pain, but no foot drop or distal weakness. No clubbing, cyanosis or peripheral edema. LABORATORY DATA: Show an unremarkable CBC, but her RDW is high. There is slight anisocytosis, slight poikilocytosis. Chemistries unremarkable with the exception of a BUN of 23, glucose of 115 and alkaline phosphatase of 343. IMAGING STUDIES: Lumbar spine MRI shows multilevel degenerative changes with chronic compression deformities of T11 and L2. There are changes of Paget's disease or possibly pathologic fractures, but compared to prior studies there is not much change. She has grade 1 anterolisthesis of L4 and L5. ASSESSMENT AND PLAN: Back pain with Paget's versus pathological fractures and anterolisthesis of L4 and L5. She has been admitted for pain control. Her pain is controlled. She was to see Neurosurgery, Dr. Barkley who has been consulted with a definitive plan after his evaluation. W Rj AGUIRRE MD DR: ALBERTO/debi JOB#: [id number] / [id number]
[2016-07-11 19:25] VITALS: BP 137/74
[2016-07-11 23:26] VITALS: BP 117/60
[2016-07-12] MEDS: TRAMADOL 50 MG TABLET. PO PRN ×2 (01:11→07:47)
[2016-07-12 03:00] VITALS: BP 121/68
[2016-07-12 07:00] VITALS: BP 123/73
[2016-07-12] MEDS: LISINOPRIL 10 MG TABLET PO SCH (07:46)
[2016-07-12] MEDS: PANTOPRAZOLE 40 MG TABLET.DR. PO SCH (07:46)
[2016-07-12] MEDS: FERROUS SULFATE 325 MG TABLET. PO SCH (07:47)
[2016-07-12] MEDS: amLODIPine BESYLATE 5 MG TABLET PO SCH (07:47)
[2016-07-12] MEDS: ASPIRIN ENTERIC COATED 81 MG TABLET.DR. PO SCH (07:47)
[2016-07-12 11:00] VITALS: BP 155/68
[2016-07-12] MEDS: ALPRAZolam 0.25 MG TABLET PO PRN (11:22)
[2016-07-12] MEDS: OXYCODONE/APAP 5/325 TABLET. PO PRN (11:23)
--- NOTE | 2016-07-12 12:48 | RAD ---
MR CERVICAL SPINE HISTORY:PRIOR MRI PMIC 2013....PT C/O NECK PAIN W/BILATERAL HAND NUMBNESS...PRIOR NECK FUSIONReason: right sided neck pain with right cervical radiculitis / Spl. Instructions: / History: COMPARISON:MRI cervical spine from 01/05/2014 Technique: Sagittal T2, sagittal STIR, sagittal T1, and axial gradient echo imaging was obtained of the cervical spine. FINDINGS: There is osseous fusion C4-C5. Vertebral body heights are maintained. No significant anterolisthesis or retrolisthesis. There is multilevel degenerative disc height loss at most levels of the cervical spine. This is most pronounced at the level of C2-C3 where there is near complete loss of disc height with endplate irregularity and reactive endplate edema. The cord is normal in caliber with no cord signal abnormality identified. At C2-3 there is bilateral uncovertebral hypertrophy causing mild to moderate bilateral foraminal stenosis. Correlate for C3 radiculopathy there is also a disc osteophyte complex which causes mild mass effect upon the cord. At C3-C4 there is a disc osteophyte complex causing mild mass effect upon the cord. There is mild bilateral foraminal stenosis from uncovertebral hypertrophy and facet arthropathy. At C4-C5 there is bilateral uncovertebral hypertrophy worse on the right causing moderate right and mild left foraminal stenosis. Correlate for right C5 radiculopathy symptoms. At C5-C6 there is mild to moderate bilateral foraminal stenosis from uncovertebral hypertrophy. The disc osteophyte complex causes mild mass effect upon the cord. At C6-C7 there is moderate bilateral foraminal stenosis from uncovertebral hypertrophy. Correlate for C7 radiculopathy symptoms. At C7-T1 there is no spinal stenosis. Impression: - When compared to the prior exam from 01/05/2014, there has been significant progression of degenerative disease at the level of C2-C3 with worsening disc height loss and development of some reactive endplate edema. There is also moderate bilateral foraminal stenosis and mild mass effect upon the cord at this level. - Other levels of moderate degenerative disc disease are not significantly changed and are detailed at each level above. Electronically signed by: Omid Mejias (Jul 12, 2016 12:46:44)
--- NOTE | 2016-07-12 13:30 | PDOC ---
SUBJECTIVE Subjective Denies acute complaints at this time. Hip and back pain improved. Had injection with pain management today. OBJECTIVE Objective MRI hip essentially unremarkable Vital Signs Vital Signs Date Time Temp Pulse Resp B/P Pulse Ox O2 Delivery O2 Flow Rate FiO2 07/12/16 11:23 19 100 Room Air 07/12/16 11:00 98.0 81 16 155/68 100 Room Air 98.0 07/12/16 07:50 Room Air 07/12/16 07:47 18 99 Room Air 07/12/16 07:47 80 123/73 07/12/16 07:46 80 123/73 07/12/16 07:00 97.9 80 16 123/73 97 Room Air 97.9 07/12/16 03:00 98.4 73 18 121/68 99 Room Air 98.4 07/12/16 02:11 100 Room Air 07/12/16 01:11 100 Room Air 07/11/16 23:26 98.2 79 18 117/60 100 Room Air 98.2 07/11/16 21:52 17 98 Room Air 07/11/16 20:51 17 07/11/16 20:00 Room Air 07/11/16 19:25 105 18 137/74 98 Room Air 07/11/16 17:31 18 96 Room Air 07/11/16 15:00 98.5 91 16 120/59 96 Room Air 98.5 I & O Intake and Output 07/12/16 07:00 Intake Total 1220 ml Output Total 1000 ml Balance 220 ml Intake Oral 1220 ml Output Urine Total 1000 ml # Voids 2 PHYSICAL EXAM Physical Exam AA, NAD, WALLIS stable, sensation intact LT ASSESSMENT/PLAN Assessment/Plan 70F with low back and right hip pain with lumbar stenosis, spondylolisthesis, spondylosis -reports significant improvement today -continue therapy and non-surgical management at present time if remains neurologically stable -monitor for changes otherwise Problems: GISELLE SALAZAR MD Jul 12, 2016 13:30
[2016-07-12] MEDS ORDERED: CYCL10TA2 PO (14:12)
--- NOTE | 2016-07-12 14:20 | PDOC3 ---
Discharge Summary Visit Information Date of Admission: Jul 10, 2016 Date of Discharge: Jul 12, 2016 Final Diagnosis Problems Medical Problems: (1) Back pain Status: Acute (2) Intractable back pain Status: Acute (3) Spinal stenosis in cervical region Status: Acute (4) Spinal stenosis of lumbar region Status: Acute Brief Hospital Course Allergies Allergies Coded Allergies Type Severity Reaction Last Updated Verified aspirin Allergy Intermediate 07/11/16 Yes codeine Allergy Intermediate 07/11/16 Yes diazepam Allergy Intermediate 07/11/16 Yes hydrocodone Allergy Intermediate 07/11/16 Yes ibuprofen Allergy Intermediate 07/11/16 Yes morphine Allergy Intermediate 07/11/16 Yes promethazine Allergy Intermediate 07/11/16 Yes Uncoded Allergies Type Severity Reaction Last Updated Verified IM SHOTS Allergy Unknown 07/21/13 Vital Signs Vital Signs Date Time Temp Pulse Resp B/P Pulse Ox O2 Delivery O2 Flow Rate FiO2 07/12/16 12:23 18 100 Room Air 07/12/16 11:00 98.0 81 155/68 98.0 Lab Results Laboratory Tests Test 07/10/16 21:50 07/11/16 04:27 White Blood Count 8.7x10^3/uL (4.0-11.0) 7.4x10^3/uL (4.0-11.0) Red Blood Count 4.93x10^6/uL (3.50-5.40) 4.68x10^6/uL (3.50-5.40) Hemoglobin 13.1g/dL (12.0-15.5) 12.3g/dL (12.0-15.5) Hematocrit 40.5% (36.0-47.0) 38.9% (36.0-47.0) Mean Corpuscular Volume 82fL (79-100) 83fL (79-100) Mean Corpuscular Hemoglobin 27pg (25-35) 26pg (25-35) Mean Corpuscular Hemoglobin Concent 32g/dL (31-37) 32g/dL (31-37) Red Cell Distribution Width 26.3% (11.5-14.5) 26.2% (11.5-14.5) Platelet Count 367x10^3/uL (140-400) 352x10^3/uL (140-400) Neutrophils (%) (Auto) 69% (31-73) 91% (31-73) Lymphocytes (%) (Auto) 24% (24-48) 8% (24-48) Monocytes (%) (Auto) 6% (0-9) 1% (0-9) Eosinophils (%) (Auto) 1% (0-3) 0% (0-3) Basophils (%) (Auto) 1% (0-3) 0% (0-3) Neutrophils # (Auto) 6.0x10^3uL (1.8-7.7) 6.7x10^3uL (1.8-7.7) Lymphocytes # (Auto) 2.1x10^3/uL (1.0-4.8) 0.6x10^3/uL (1.0-4.8) Monocytes # (Auto) 0.5x10^3/uL (0.0-1.1) 0.1x10^3/uL (0.0-1.1) Eosinophils # (Auto) 0.1x10^3/uL (0.0-0.7) 0.0x10^3/uL (0.0-0.7) Basophils # (Auto) 0.0x10^3/uL (0.0-0.2) 0.0x10^3/uL (0.0-0.2) Platelet Estimate Adequate (ADEQUATE) Adequate (ADEQUATE) Poikilocytosis Slight Anisocytosis Mod Marked Sodium Level 139mmol/L (136-145) 137mmol/L (136-145) Potassium Level 3.9mmol/L (3.5-5.1) 4.6mmol/L (3.5-5.1) Chloride Level 102mmol/L (98-107) 101mmol/L (98-107) Carbon Dioxide Level 25mmol/L (21-32) 23mmol/L (21-32) Anion Gap 12 (6-14) 13 (6-14) Blood Urea Nitrogen 23mg/dL (7-20) 21mg/dL (7-20) Creatinine 1.0mg/dL (0.6-1.0) 1.1mg/dL (0.6-1.0) Estimated GFR (Cockcroft-Gault) 66.5 59.6 BUN/Creatinine Ratio 23 (6-20) Glucose Level 115mg/dL (70-99) 152mg/dL (70-99) Calcium Level 9.6mg/dL (8.5-10.1) 9.5mg/dL (8.5-10.1) Total Bilirubin 0.3mg/dL (0.2-1.0) Aspartate Amino Transf (AST/SGOT) 15U/L (15-37) Alanine Aminotransferase (ALT/SGPT) 21U/L (14-59) Alkaline Phosphatase 343U/L (46-116) Total Protein 8.0g/dL (6.4-8.2) Albumin 4.3g/dL (3.4-5.0) Albumin/Globulin Ratio 1.2 (1.0-1.7) Segmented Neutrophils % 85% (35-66) Lymphocytes % 11% (24-48) Monocytes % 4% (0-10) Brief Hospital Course Ms. Pike is a 70 old who presented with intractable back pain and admitted for pain control and further eval, she had an MRI of L-spine, C-spine and hip and consults with Neurosurgery, PM&R and anesthesia pain clinic and had an epidural steroid and is feeling much better and now capablwe of managing as an outpatient and wanting to be discharged. She will not require surgery at this time and she has f/u arranged. She had no medical problems while here and will continue her routine meds Discharge Information Condition at Discharge: Improved, Stable Follow Up: Weeks (1-2) Disposition/Orders: D/C to Home Scheduled Amlodipine Besylate (Amlodipine Besylate) 5 MG PO DAILY (Reported) Aspirin (Aspir 81) 1 TAB PO DAILY (Reported) Ferrous Sulfate (Ferrous Sulfate) 1 TAB PO DAILY (Reported) Lisinopril (Lisinopril) 1 TAB PO DAILY (Reported) Oxycodone/Apap 5-325 (Percocet 5-325 Mg Tablet) 1-2 TAB PO Q4-6HRS (Reported) Pantoprazole Sodium (Pantoprazole Sodium) 40 MG PO DAILY (Reported) Scheduled PRN Oxycodone/Apap 5-325 (Percocet 5-325 Mg Tablet) 1 TAB PO PRN Q6HRS PRN PRN PAIN Tramadol Hcl (Tramadol Hcl) 50 MG PO Q6H PRN PRN PAIN (Reported) Miscellaneous Medications ([Flexeril]) (Reported) ANGELINE AGUIRRE MD Jul 12, 2016 14:20
--- NOTE | 2016-07-13 01:05 | PAIN ---
DATE OF SERVICE: DIAGNOSES: 1. Cervical radiculopathy with cervical degenerative disk disease. 2. Lumbar radiculopathy with lumbar degenerative disk disease, lumbar spinal stenosis. HISTORY OF PRESENT ILLNESS: This is a 70-year-old female who presents as an inpatient, seen about 12 days ago for her cervical epidural steroid injection, doing very well, about 80% improvement with the cervical injection, reports now that she is having some significant pain in her low back and right hip and lower extremity. The patient reports this started about 3 days ago. It has been there for about 6 months, but much worse over the last 3 days. She presented to the Hospital Emergency Department because of the pain and was subsequently admitted for further workup. The patient reports it is hard to weightbear as she is having pain into the posterior gluteus, lateral thigh, anterior thigh, medial thigh into the medial knee and lower leg at times posteriorly as well, on the right side only. The patient reports no significant pain on the left side, is beginning to decrease her ability to ambulate, so she went to the hospital and was admitted. The patient did have an MRI scan yesterday showing severe central stenosis at the L4-L5 level with degenerative disk disease throughout the lumbar spine without any acute findings, also had MRI scan of the right hip showing unremarkable MRI study of the right hip with some mild tendinosis of the gluteus anuradha tendon on that side. The patient reports otherwise no new motor or sensory deficits or other complaints. She has significant pain, becoming more difficult to weightbear on the right side with her low back. PHYSICAL EXAMINATION: VITAL SIGNS: The patient's blood culture shows 137/68, pulse 72, respirations are 18, and temperature is 98.0 degrees Fahrenheit. Height is 5 feet 5 inches. GENERAL: The patient is awake, alert, oriented, appropriate, very pleasant demeanor. HEENT: Head shows normocephalic and atraumatic. Extraocular movements are intact and symmetrical. Oral cavity shows mucous membranes moist and pink. Dentition is intact. NECK: Shows anterior throat supple without palpable lymphadenopathy noted. Swallow reflex is symmetrical. CHEST: Shows normal on inspection. Breath sounds are clear to auscultation bilaterally. HEART: Shows S1 and S2 clear. ABDOMEN: Soft, nontender, and nondistended. No palpable organomegaly is noted. No rebound or guarding demonstrated. BACK: Shows spine grossly midline. The patient's neck shows good rotational motion of cervical spine, both laterally as well as extension and flexion without difficulty. Normal appearing thoracic kyphosis and lumbar lordotic curvature. No previous bruises, lesions or rashes are noted. The patient's lumbar paraspinous musculature is symmetrical on inspection with palpation, shows some moderate tenderness bilaterally, but without significant radiation. The patient has good rotation and motion of lumbar spine, both laterally greater than 10 degrees right and left as well as extension greater than 10 degrees, forward flexion of 45 degrees without difficulty. EXTREMITIES: The patient's lower extremities showed deep tendon reflexes at 1+ in the biceps and the patellar and tendo calcaneus tendons. Motor exam is approximately 4 on a scale of 5 with right dorsiflexion, extension, quadriceps and hamstring flexion 5/5 on the left. Options were discussed with the patient. The patient's old chart was reviewed and her current medication regimen was reviewed well and her review of systems updated today. We will proceed with a lumbar epidural steroid injection with fluoroscopic guidance. Risks were again discussed including, but not limited to bleeding, infection, possibility of epidural hematoma, subsequent neurologic compromise, dural puncture, headaches, spinal cord and/or nerve damage, side effects of steroid medication and poor results regarding pain control. The patient understands and wishes to proceed. The patient will return to clinic in approximately 2 weeks for followup, was counseled on return appointment, activity level and side effects to be aware of. DIAGNOSES: Lumbar radiculopathy with lumbar degenerative disk disease, lumbar spinal stenosis. PROCEDURE: Lumbar epidural steroid injection in translaminar approach at the L4-L5 level using C-arm fluoroscopic guidance under sterile prep and drape of local anesthetic. INDICATIONS: This is 120 mg Depo-Medrol plus disease preservative-free normal saline and 2 mL of Isovue for contrast. CONDITION AT DISCHARGE: Stable. The patient tolerated procedure well, had no complications. JESSIE DANIELLE MD DR: LUCIANA/debi JOB#: [id number] / [id number]
--- NOTE | 2016-07-13 01:40 | CONS ---
DATE OF CONSULTATION: LOCATION: She is in room 670. ATTENDING PHYSICIAN: Dr. Balbuena. The patient was seen at the request of Dr. Balbuena for rehab evaluation. HISTORY OF PRESENT ILLNESS: This is a 70-year-old female admitted through the Emergency Room on 07/11/2016 with intractable lower back pain with radiation to her right hip with cramps in both lower extremities. The patient has been using Percocet, Flexeril and tramadol without much help. She had history of Paget's disease. She had MRI scan of her lumbar vertebrae done which revealed multilevel degenerative disk disease and degenerative joint disease with severe central canal spinal stenosis at L4-L5 and stable mild chronic compression fractures of T11 and L2 and grade 1 anterolisthesis of L4 and L5 and DrErika ____ problem at the hip and he asked for an MRI scan of her right hip, which revealed mild tendinosis at the gluteus anuradha tendon at the level of the greater trochanter, no trochanteric bursitis was seen. The patient lives with her and son in the [place] [place] [facility], had three steps to enter the house with railing plus washer and dryer are in the basement. PAST MEDICAL HISTORY: Significant for hypertension, chronic lower back pain, carcinoma of breast, coronary artery disease status post stenting, left bunionectomy, surgery on her cervical neck, right mastectomy and cholecystectomy. ALLERGIES: SHE IS KNOWN ALLERGIC TO ASPIRIN, CODEINE, DIAZEPAM, HYDROCODONE, IBUPROFEN, MORPHINE AND PROMETHAZINE. MOST OF THESE APPEAR TO BE INTOLERANCES RATHER THAN TRUE ALLERGIES. 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 The patient also drops things out of her right hand. The patient denies any recent injury or fall. The patient admits she has some difficulty to empty the bladder on occasion. Denies any dysuria. PHYSICAL EXAMINATION: Today revealed an elderly female. She is alert, oriented to time, place, person and circumstance and follows commands appropriately. Moves all 4 extremities voluntarily where she had 4+/5 grade muscle strength and deep tendon reflexes are 2+ and symmetrical and maybe slightly exaggerated at both knees with absent right ankle jerk. She had equal perception of touch and pinprick sensation bilaterally except over palmar aspect of right hand where she has slightly decreased touch and pinprick sensation when compared to left side. Negative Tinel sign over median nerve at the wrist and ulnar nerve at the wrist and elbow and negative Phalen sign at both wrists. The patient has tenderness to palpation over right cervical paraspinal and upper trapezius muscle and also over right lumbar paraspinal muscles, sacroiliac joint area bilaterally and over right gluteal muscles. No significant tenderness to palpation over trochanteric bursa area. She also had tenderness to palpation over medial aspect of both knees. She had pain free range of motion of both hip joint. Crepitus on range of motion of both knee joints. She is independent with rolling from side to side. Complains of pain. She just had a lumbar epidural steroid injection done by Dr. Florencio Ferguson, so I did not get her up and see how she is getting up and walking around. Other than epidural injection site her skin is intact. She had a Band-Aid to the epidural injection site in her lower back. Straight leg raising test is negative bilaterally. ASSESSMENT: An elderly female with chronic lower back pain with radiological evidence of degenerative disk disease and degenerative joint disease of lumbar vertebrae with some degree of lumbar spinal stenosis at L4-L5 with lumbar radiculitis, also degenerative joint disease of both knees with some tendinitis and patient is status post previous cervical spine surgery with neck pain with right cervical radiculitis. To also rule out associated compression neuropathy involving right median nerve at the wrist. RECOMMENDATIONS: To try her with a lumbar corset, to get her up with physical therapy. She might need a roller walker to take home. I have reviewed with her proper body mechanics, to consider painful sacroiliac joint injection if her pain persists in the next day or so. I did not do any injections today as she just had lumbar epidural steroid injections. Dr. Balbuena, I appreciate asking me to participate in the care of this interesting patient. I will be glad to follow her with you as needed for her rehabilitation. JOHN BA MD DR: BETHANIE/debi JOB#: [id number] / [id number]
== END 2016-07-12 15:30 | disposition home or self-care (01) | DRG 552 ==
LOC: ER 19:11 → 6 SOUTH 21:15
PROVIDERS: ADMIT Family Medicine; ATTEND Family Medicine
DX: M43.16 Spondylolisthesis, lumbar region (principal); M54.9 Dorsalgia, unspecified; M88.9 Osteitis deformans of unspecified bone; G89.29 Other chronic pain; I10 Essential (primary) hypertension; I25.10 Atherosclerotic heart disease of native coronary artery without angina pectoris; M17.0 Bilateral primary osteoarthritis of knee; M47.26 Other spondylosis with radiculopathy, lumbar region; M48.02 Spinal stenosis, cervical region; M48.06 Spinal stenosis, lumbar region; M51.16 Intervertebral disc disorders with radiculopathy, lumbar region; M77.9 Enthesopathy, unspecified; N20.0 Calculus of kidney; Z85.3 Personal history of malignant neoplasm of breast; Z95.5 Presence of coronary angioplasty implant and graft; Z90.49 Acquired absence of other specified parts of digestive tract; Z90.11 Acquired absence of right breast and nipple; Z88.6 Allergy status to analgesic agent; Z88.5 Allergy status to narcotic agent; Z88.8 Allergy status to other drugs, medicaments and biological substances
CPT/HCPCS: 36415; 62323; 72141; 72148; 73723; 80048; 80053; 85007; 85027; 96372; A9585; J1040; J1170; J2930; J3010; 99285-25

== ENCOUNTER 2016-07-30 15:49 | Emergency (ER) | payer MEDICARE, OTHER ==
[~2016-07-30] VITALS: Ht 165.1 cm; Wt 84.8 kg
[~2016-07-30 15:49] MED LIST changes: +ASPI-482 PO; +CYCL10TA2 PO
--- NOTE | 2016-07-30 16:14 | ED.ADGEN ---
Past Medical History Past Medical History: Hypertension, Other Additional Past Medical Histor: chronic lower back pain Past Surgical History: Cholecystectomy, Other Additional Past Surgical Histo: right mastectomy; cervical neck; left bunionectomy,CARDIAC STENT Alcohol Use: None Drug Use: None Adult General Chief Complaint Chief Complaint: MECHANICAL FALL HPI HPI Patient is a 70 year old and, with a history of hypertension, CAD, chronic back pain for which she uses a brace, and follows with Dr. Marty sullivan pain management, who presents emergency department complaining of low back pain after a mechanical fall. Patient states that she was in the restroom of her adventist, she states that she slipped on the wet floor and fell, striking her lower back against the porcelain toilet bowl. She states she landed on her buttocks. She denies striking her head or neck. She states that she was able to get back up and ambulated was experiencing worsening pain in the right side of her lower back. She does that she has several "fractures" there which were diagnosed during a previous hospitalization for back pain several months ago. Patient states she wears a back brace for support, doesn't this time, states it has not been helping. She states she took a Flexeril and 10:00 this morning after the incident occurred but is not helped with her pain. She denies any weakness numbness or tingling, any chest pain or shortness of breath, any nausea or vomiting, any preceding symptoms before her fall, states it was purely mechanical due to the wet floor. She does take a daily baby aspirin, no other blood thinners. She states she is compliant with her medications for blood pressure, she does have a history of a cardiac stent. Review of Systems Review of Systems Constitutional: Denies fever or chills. [] Eyes: Denies change in visual acuity. [] HENT: Denies nasal congestion or sore throat. [] Respiratory: Denies cough or shortness of breath. [] Cardiovascular: Denies chest pain or edema. [] GI: Denies abdominal pain, nausea, vomiting, bloody stools or diarrhea. [] : Denies dysuria. [] Musculoskeletal: Denies back pain or joint pain. [] Integument: Denies rash. [] Neurologic: Denies headache, focal weakness or sensory changes. [] Endocrine: Denies polyuria or polydipsia. [] Lymphatic: Denies swollen glands. [] Psychiatric: Denies depression or anxiety. [] Current Medications Current Medications Current Medications Medications (Trade) Dose Ordered Sig/Danilo Start Time Stop Time Status Last Admin Dose Admin Cyclobenzaprine HCl (Flexeril) 5 mg 1X ONCE 07/30/16 16:15 07/30/16 16:16 DC 07/30/16 16:25 5 MG Fentanyl Citrate (Fentanyl 2ml Vial) 50 mcg 1X ONCE 07/30/16 17:00 07/30/16 17:01 DC 07/30/16 16:59 50 MCG Oxycodone HCl (Roxicodone) 5 mg 1X ONCE 07/30/16 16:15 07/30/16 16:16 DC 07/30/16 16:25 5 MG Allergies Allergies Allergies Coded Allergies Type Severity Reaction Last Updated Verified aspirin Allergy Intermediate 07/11/16 Yes codeine Allergy Intermediate 07/11/16 Yes diazepam Allergy Intermediate 07/11/16 Yes hydrocodone Allergy Intermediate 07/11/16 Yes ibuprofen Allergy Intermediate 07/11/16 Yes morphine Allergy Intermediate 07/11/16 Yes promethazine Allergy Intermediate 07/11/16 Yes Uncoded Allergies Type Severity Reaction Last Updated Verified IM SHOTS Allergy Unknown 07/21/13 Physical Exam Physical Exam Constitutional: Well developed, well nourished, no acute distress, non-toxic appearance. [] HENT: Normocephalic, atraumatic, bilateral external ears normal, oropharynx moist, no oral exudates, nose normal. [] Eyes: PERRLA, EOMI, conjunctiva normal, no discharge. [] Neck: Normal range of motion, no tenderness, supple, no stridor. [] Cardiovascular:Heart rate regular rhythm, 3-5 systolic murmur, S1, S2, no rubs or gallops. [] Lungs & Thorax: Bilateral breath sounds clear to auscultation, no wheezing, rhonchi, rales. No chest wall crepitus or tenderness. Abdomen: Bowel sounds normal, soft, no tenderness, no rebound, rigidity, no guarding, no masses, no pulsatile masses. [] Skin: Warm, dry, no erythema, no rash. [] Back: Patient with tenderness palpation along the right paraspinal muscles of the lumbar spine, no step-offs or deformities appreciated, no CVA tenderness. [ ] Extremities: No tenderness, no cyanosis, no clubbing, ROM intact, no edema. [] Neurologic: Alert and oriented X 3, normal motor function, normal sensory function, no focal deficits noted. [] Psychologic: Affect normal, judgement normal, mood normal. [] Current Patient Data Vital Signs Vital Signs Date Time Temp Pulse Resp B/P (MAP) Pulse Ox O2 Delivery O2 Flow Rate FiO2 07/30/16 17:25 93 20 152/71 (98) 99 Room Air 07/30/16 16:07 99.7 99.7 Lab Values Laboratory Tests Test 07/30/16 16:05 Urine Collection Type Unknown Urine Color Yellow Urine Clarity Clear Urine pH 7.0 Urine Specific Bertram 1.015 Urine Protein Negative mg/dL (NEG-TRACE) Urine Glucose (UA) Negative mg/dL (NEG) Urine Ketones (Stick) Negative mg/dL (NEG) Urine Blood Negative (NEG) Urine Nitrite Negative (NEG) Urine Bilirubin Negative (NEG) Urine Urobilinogen Dipstick 0.2 mg/dL (0.2 mg/dL) Urine Leukocyte Esterase Moderate (NEG) Urine RBC 0 /HPF (0-2) Urine WBC 5-10 /HPF (0-4) Urine Squamous Epithelial Cells Few /LPF Urine Bacteria 0 /HPF (0-FEW) Urine Mucus Slight /LPF EKG EKG Not indicated. [] Radiology/Procedures Radiology/Procedures [] [facility] [address] [place] [address] IMAGING REPORT Signed PATIENT: DANIELA PANG ACCOUNT: [id number] : 1945 LOCATION: ER AGE: 70 SEX: F EXAM STATUS: PRE ER ORD. PHYSICIAN: MARY MICHAUD DO REASON: fall/pain PROCEDURE: LUMBAR SPINE 2-3V Examination: 2 views of the lumbar spine History: History of fall, pain Comparison: MRI from 07/11/2016 Findings: Moderate multilevel degenerative changes identified in the visualized thoracolumbar spine. There is mild compression change of T12, L2 vertebral bodies grossly similar to prior exam. There is minimal anterolisthesis of L4 on L5. Moderate multilevel degenerative disease identified in the lumbar spine. Tubing projects over the left mid abdomen probably external to the patient. Correlate clinically. Impression: 1. Moderate degenerative changes lumbar spine. 2. Mild compression changes of T12, L2 vertebral bodies are similar to prior exam. DICTATED and SIGNED BY: PAOLA CANAS MD DATE: 07/30/16 1630 CC: MARY MICHAUD DO; LYDIA FITZPATRICK MD ~ Course & Med Decision Making Course & Med Decision Making Pertinent Labs and Imaging studies reviewed. (See chart for details) Patient with normal neurologic examination, did ambulate into the ED without issue. Initially declined IM injection, received hydrocodone and Flexeril emergency department, 5 mg each, and reevaluation states that she is still having some pain, she is pacing the room pressing her hands answer back. At that time for discussion she was agreeable to receiving an injection, did receive an IM 50 mg injection of fentanyl. On reevaluation, patient states she is feeling much better, is now seated comfortably in the bed, and is able to ambulate without pain. She states that she is ready to be discharged home at this time, states that she will contact Dr. Ferguson, her pain management physician tomorrow to schedule an appointment, she states that about every 3 months or so for injections. We did discuss concerning symptoms that prompt return to the emergency department, patient voiced understanding and agreement. She does have her Flexeril home, therefore I did give her 12 tablets of Toradol 50 mg, be taken once every 6 hours as needed for pain which she has used for pain exacerbation in the past with good effect. Patient discharged home ambulated without difficulty in stable condition, with family with plan as above. Dragon Disclaimer Dragon Disclaimer This electronic medical record was generated, in whole or in part, using a voice recognition dictation system. Departure Impression: Primary Impression: Back pain Disposition: HOME, SELF-CARE Condition: IMPROVED Scripts Tramadol Hcl (TRAMADOL HCL) 50 Mg Tablet 1 TAB PO PRN Q6HRS, #12 TAB Prov: MARY MICHAUD DO 07/30/16 MARY MICHAUD DO July 30, 2016 16:14
[2016-07-30] MEDS ORDERED: oxyCODONE IR 5 MG TABLET PO ONE (16:15)
[2016-07-30] MEDS ORDERED: CYCLOBENZAPRINE 10 MG TABLET. PO ONE (16:15)
[2016-07-30 16:26] LABS: BILIRUBIN,URINE NEGATIVE (NEG); GLUCOSE,URINE NEGATIVE (NEG); NITRITE,URINE NEGATIVE (NEG); PROTEIN,URINE NEGATIVE (NEG-TRACE); UROBILINOGEN,URINE 0.2 mg/dL (0.2 mg/dL)
[2016-07-30 16:32] LABS: BACTERIA,URINE 0 /HPF (0-FEW); RBC,URINE 0 /HPF (0-2); SQUAMOUS EPITHELIAL CELL,UR FEW /LPF
--- NOTE | 2016-07-30 16:34 | RAD ---
Examination: 2 views of the lumbar spine History: History of fall, pain Comparison: MRI from 07/11/2016 Findings: Moderate multilevel degenerative changes identified in the visualized thoracolumbar spine. There is mild compression change of T12, L2 vertebral bodies grossly similar to prior exam. There is minimal anterolisthesis of L4 on L5. Moderate multilevel degenerative disease identified in the lumbar spine. Tubing projects over the left mid abdomen probably external to the patient. Correlate clinically. Impression: 1. Moderate degenerative changes lumbar spine. 2. Mild compression changes of T12, L2 vertebral bodies are similar to prior exam.
[2016-07-30] MEDS ORDERED: fentaNYL PF VIAL 100 MCG/2 ML VIAL IM ONE (17:00)
[2016-07-30 17:25] VITALS: BP 152/71
[2016-07-30] MEDS ORDERED: TRAM50TA PO (17:56)
== END 2016-07-30 18:09 | disposition home or self-care (01) ==
LOC: ER 17:29
DX: G89.29 Other chronic pain (principal); M54.5 Low back pain; I10 Essential (primary) hypertension; Z90.49 Acquired absence of other specified parts of digestive tract; Z88.6 Allergy status to analgesic agent; Z88.5 Allergy status to narcotic agent; Z88.8 Allergy status to other drugs, medicaments and biological substances
CPT/HCPCS: 72100; 81001; 96372; 99285; J3010

== ENCOUNTER 2016-08-03 02:37 | Emergency (ER) | payer MEDICARE, OTHER ==
[~2016-08-03] VITALS: Ht 165.1 cm; Wt 84.8 kg
--- NOTE | 2016-08-03 03:06 | PHYS DOC ---
Past Medical History Past Medical History: Hypertension, Other Additional Past Medical Histor: chronic lower back pain Past Surgical History: Cholecystectomy, Other Additional Past Surgical Histo: cervical neck; left bunionectomy,CARDIAC STENT Alcohol Use: None Drug Use: None Adult General Chief Complaint Chief Complaint: BACK PAIN - NO INJURY HPI HPI Patient is a 70 year old female who presents with complaint of low back pain. Patient states that she has history of chronic low back pain and has had frequent flareups recently. Patient was seen last 4 days ago in the emergency department and treated for an acute exacerbation. Patient states initially her symptoms had improved, however starting tonight at approximately 8:00 she started having worsening symptoms. Patient states that the pain radiates from her low back down into her right hip which she states is typical. Patient denies any loss of bowel or bladder control, foot drop, or saddle anesthesia associated with her symptoms. Patient took Flexeril orally approximately 2 hours prior to arrival which she states has not provided any relief. Patient also took oral pain medication 5 hours ago. Patient states that she has an appointment later today at 01:[address] Gonzales of neurosurgery. Patient rates her pain as 10 out of 10 and states that she could not wait until her appointment to be seen. Review of Systems Review of Systems Constitutional: Denies fever or chills [] Eyes: Denies change in visual acuity, redness, or eye pain [] HENT: Denies nasal congestion or sore throat [] Respiratory: Denies cough or shortness of breath [] Cardiovascular: Denies chest pain or edema [] GI: Denies abdominal pain, nausea, vomiting, bloody stools or diarrhea [] : Denies dysuria or hematuria [] Musculoskeletal: Back pain [] Integument: Denies rash or skin lesions [] Neurologic: Denies headache, focal weakness or sensory changes [] Current Medications Current Medications Current Medications Medications (Trade) Dose Ordered Sig/Danilo Start Time Stop Time Status Last Admin Dose Admin Fentanyl Citrate (Fentanyl 2ml Vial) 50 mcg 1X ONCE 08/03/16 03:15 08/03/16 03:16 DC 08/03/16 03:14 50 MCG Ondansetron HCl (Zofran Odt) 4 mg 1X ONCE 08/03/16 03:15 08/03/16 03:16 DC 08/03/16 03:11 4 MG Prednisone (Prednisone) 40 mg 1X ONCE 08/03/16 03:15 08/03/16 03:16 DC 08/03/16 03:11 40 MG Tramadol HCl (Ultram) 50 mg 1X ONCE 08/03/16 04:30 08/03/16 04:31 UNV Allergies Allergies Allergies Coded Allergies Type Severity Reaction Last Updated Verified aspirin Allergy Intermediate 07/11/16 Yes codeine Allergy Intermediate 07/11/16 Yes diazepam Allergy Intermediate 07/11/16 Yes hydrocodone Allergy Intermediate 07/11/16 Yes ibuprofen Allergy Intermediate 07/11/16 Yes morphine Allergy Intermediate 07/11/16 Yes promethazine Allergy Intermediate 07/11/16 Yes Uncoded Allergies Type Severity Reaction Last Updated Verified IM SHOTS Allergy Unknown 07/21/13 Physical Exam Physical Exam Constitutional: Alert, afebrile, appears in mild to moderate discomfort. [] HENT: Normocephalic, atraumatic, bilateral external ears normal, oropharynx moist, no oral exudates, nose normal. [] Eyes: PERRLA, EOMI, conjunctiva normal, no discharge. [] Neck: Normal range of motion, no tenderness, supple, no stridor. [] Cardiovascular:Heart rate regular rhythm, no murmur [] Lungs & Thorax: Bilateral breath sounds clear to auscultation [] Abdomen: Bowel sounds normal, soft, no tenderness, no masses, no pulsatile masses. [] Skin: Warm, dry, no erythema, no rash. [] Back: No midline tenderness, bilateral lower lumbar paraspinous muscle tenderness to palpation, straight leg test positive in right lower extremity [] Extremities: No tenderness, no cyanosis, no clubbing, ROM intact, no edema. [] Neurologic: Alert and oriented X 3, normal motor function, normal sensory function, no focal deficits noted. [] Current Patient Data Vital Signs Vital Signs Date Time Temp Pulse Resp B/P (MAP) Pulse Ox O2 Delivery O2 Flow Rate FiO2 08/03/16 03:14 16 97 08/03/16 02:44 98.7 97 175/86 (115) Room Air 98.7 EKG EKG Not performed [] Radiology/Procedures Radiology/Procedures Not performed [] Course & Med Decision Making Course & Med Decision Making Pertinent Labs and Imaging studies reviewed. (See chart for details) Patient was given IM fentanyl, oral prednisone, and oral Zofran in the emergency department. Patient noted improvement in her pain after treatment. Patient was given oral tramadol for continued treatment of acute on chronic back pain. Advised patient to follow-up with Dr. Barkley as scheduled later today. Advised return emergency department for any worsening symptoms. Patient voiced understanding and in agreement with treatment plan. Dragon Disclaimer Dragon Disclaimer This electronic medical record was generated, in whole or in part, using a voice recognition dictation system. Departure Departure Impression: Primary Impression: Acute exacerbation of chronic low back pain Disposition: HOME, SELF-CARE Condition: IMPROVED Referrals: LYDIA FITZPATRICK MD (PCP) Patient Instructions: Chronic Back Pain Additional Instructions: Follow-up with Dr. Gonzales later today as scheduled. Return to the emergency department for any worsening symptoms. Scripts Tramadol Hcl (TRAMADOL HCL) 50 Mg Tablet 50 MG PO Q6H Y for PAIN, #20 TAB Prov: WILFRED POLLOCK MD 08/03/16 Prednisone (PREDNISONE) 20 Mg Tablet 1 TAB PO BID, #10 TAB Prov: WILFRED POLLOCK MD 08/03/16 WILFRED POLLOCK MD August 03, 2016 03:06
[2016-08-03] MEDS ORDERED: ONDANSETRON ODT 4 MG TAB.RAPDIS. PO ONE (03:15)
[2016-08-03] MEDS ORDERED: fentaNYL PF VIAL 100 MCG/2 ML VIAL IM ONE (03:15)
[2016-08-03] MEDS ORDERED: predniSONE 20 MG TABLET PO ONE (03:15)
[2016-08-03 04:00] VITALS: BP 147/75
[2016-08-03] MEDS ORDERED: PRED20TA PO (04:26)
[2016-08-03] MEDS ORDERED: TRAM50TA PO (04:26)
[2016-08-03] MEDS ORDERED: traMADol 50 MG TABLET PO ONE (04:45)
== END 2016-08-03 04:35 | disposition home or self-care (01) ==
LOC: ER 02:37
DX: G89.29 Other chronic pain (principal); M54.5 Low back pain; I10 Essential (primary) hypertension; Z88.5 Allergy status to narcotic agent; Z88.6 Allergy status to analgesic agent; Z88.8 Allergy status to other drugs, medicaments and biological substances
CPT/HCPCS: 96372; 99284; J3010; J7512; Q0162

== ENCOUNTER → 2016-08-22 | Outpatient (CLI) | payer MEDICARE, OTHER ==
[2016-08-03 04:00] VITALS: BP 147/75
[~2016-08-22] MED LIST changes: +IOHEXOL 180 MG/ML 10 ML VIAL. ONE; +PRED20TA PO; +methylPREDNISolone ACETATE 40 MG/ML VIAL. ONE; +methylPREDNISolone ACETATE 80 MG/ML VIAL. ONE
--- NOTE | 2016-08-23 01:57 | PAIN ---
DATE OF SERVICE: 08/22/2016 DIAGNOSES: 1. Lumbar radiculopathy with lumbar degenerative disk disease, lumbar spinal stenosis. 2. Cervical radiculopathy with cervical degenerative disk disease. HISTORY OF PRESENT ILLNESS: The patient is a 70-year-old female who returns for followup status post cervical epidural steroid injection x 1 and a lumbar epidural steroid injection x 1. The patient reports still having significant pain, though she is better, but only by about 50% overall of the neck and low back pain. Low back is still significantly painful. The patient reports no new motor or sensory deficits, but still significant pain across the low back and the right lower extremity. It is a constant aching pain rated as an 8 on a scale of 10. The patient reports that shot helped, but only for a short period of time about 1 week or so. The patient reports no new motor or sensory deficits, no new bowel or bladder incontinence. PHYSICAL EXAMINATION: VITAL SIGNS: The patient's blood pressure is 146/84, pulse 84, respirations 18, temperature 98.3 degrees Fahrenheit. Weight is 188 pounds. GENERAL: The patient is awake, alert, oriented, appropriate, very pleasant demeanor. HEENT: Head shows normocephalic, atraumatic. Extraocular movements are intact and symmetrical. Oral cavity, mucous membranes are moist and pink. Dentition is intact. NECK: Shows anterior throat supple without palpable lymphadenopathy noted. Swallow reflex is symmetrical. CHEST: Shows normal on inspection. Breath sounds clear to auscultation bilaterally. HEART: Shows S1 and S2 clear. No murmurs auscultated. ABDOMEN: Soft, nontender, nondistended. No palpable organomegaly is noted. No rebound or guarding demonstrated. BACK: Shows spine grossly midline. Some cervical paraspinous musculature shows tenderness with palpation only in the base of the cervical paraspinous muscles and in the superior medial trapezius, but is symmetrical with firm without trigger points, without radiation. Low back shows a normal appearing lordotic curvature. The paraspinous musculature is symmetrical on inspection with palpation shows some moderate tenderness throughout the upper, middle and lower distribution of paraspinous muscles only diffusely without radiation. No tenderness over the spinous processes, the sacrum or sacroiliac regions. The patient does show good rotational motion of lumbar spine, both laterally as well as extension and flexion without exacerbation of pain. Neck shows full rotational motion as well without significant exacerbation except with extension past about 20 degrees. EXTREMITIES: Lower extremities showed deep tendon reflexes 1+ in the patellar and tendo calcaneus tendons. Motor exam is strong with dorsiflexion, extension, quadriceps and hamstring flexion ____ 4/5 on the right and 5/5 on left. Options were discussed with the patient at this time. The patient's old chart was reviewed as her current medication regimen updated. Current review of systems updated today as well. We will proceed with a second lumbar epidural steroid injection today with fluoroscopic guidance. Risks were again discussed including, but not limited to bleeding, infection, possibility of epidural hematoma and subsequent neurologic compromise, dural puncture, headaches, spinal cord and/or nerve damage, side effects of steroid medication and poor results regarding pain control. The patient understands and wishes to proceed. The patient will return to clinic in approximately 2 weeks for followup. She was counseled on return appointment, activity level and side effects to be aware of. Also, possibility of following up with the patient's neurosurgeon as she reports that the surgery was recommended for her back and her neck, although she is wishing to try more conservative measures. We discussed physical therapy as well. We will initiate physical therapy with pool therapy for her low back, as well as physical therapy for her neck and low back also. The patient will follow up once this is completed as well. DIAGNOSES: Lumbar radiculopathy with lumbar degenerative disk disease, lumbar spinal stenosis. PROCEDURE: Lumbar epidural steroid injection in translaminar approach at the L5-S1 level using C-arm fluoroscopic guidance under sterile prep and drape using local anesthetic. MEDICATIONS INJECTED: 120 mg Depo-Medrol plus 10 mL of preservative-free normal saline and 2 mL of Isovue contrast. CONDITION AT DISCHARGE: Stable. The patient tolerated procedure well and had no complications. JESSIE DANIELLE MD DR: LUCIANA/debi JOB#: [id number] / [id number]
== END | disposition home or self-care (01) ==
LOC: PNCL 10:12
PROVIDERS: ATTEND Anesthesiology
DX: M51.16 Intervertebral disc disorders with radiculopathy, lumbar region (principal); M48.06 Spinal stenosis, lumbar region; I25.10 Atherosclerotic heart disease of native coronary artery without angina pectoris; I10 Essential (primary) hypertension; Z90.49 Acquired absence of other specified parts of digestive tract; Z87.442 Personal history of urinary calculi; Z87.39 Personal history of other diseases of the musculoskeletal system and connective tissue
CPT/HCPCS: 62323; J1030; J1040

== ENCOUNTER 2016-10-07 12:35 | Emergency (ER) | payer MEDICARE, OTHER ==
[~2016-10-07] VITALS: Ht 165.1 cm; Wt 84.8 kg
[~2016-10-07 12:35] MED LIST changes: -IOHEXOL 180 MG/ML 10 ML VIAL. ONE; -methylPREDNISolone ACETATE 40 MG/ML VIAL. ONE; -methylPREDNISolone ACETATE 80 MG/ML VIAL. ONE
[2016-10-07 13:15] VITALS: BP 136/82
--- NOTE | 2016-10-07 13:38 | PHYS DOC ---
Past Medical History Past Medical History: Hypertension, Other Additional Past Medical Histor: chronic lower back pain Past Surgical History: Cholecystectomy, Other Additional Past Surgical Histo: cervical neck; left bunionectomy,CARDIAC STENT Alcohol Use: None Drug Use: None Adult General Chief Complaint Chief Complaint: LOWER EXT PAIN [facility] HPI Patient is a 71 year old female presents to the emergency department with a two -day history of left lower extremity pain. Patient states that she was walking down the steps, when she stepped down she developed anterior left lower extremity pain. Patient reports she has not fall. States the pain has persisted. She is seeking further evaluation. Patient is concerned she may have a blood clot because "I had them before". Review of Systems Review of Systems Constitutional: Denies fever or chills [] Eyes: Denies change in visual acuity, redness, or eye pain [] HENT: Denies nasal congestion or sore throat [] Respiratory: Denies cough or shortness of breath [] Cardiovascular: No additional information not addressed in HPI [] GI: Denies abdominal pain, nausea, vomiting, bloody stools or diarrhea [] : Denies dysuria or hematuria [] Musculoskeletal: left lower extremity pain Integument: Denies rash or skin lesions [] Neurologic: Denies headache, focal weakness or sensory changes [] Endocrine: Denies polyuria or polydipsia [] Allergies Allergies Allergies Coded Allergies Type Severity Reaction Last Updated Verified aspirin Allergy Intermediate 07/11/16 Yes codeine Allergy Intermediate 07/11/16 Yes diazepam Allergy Intermediate 07/11/16 Yes hydrocodone Allergy Intermediate 07/11/16 Yes ibuprofen Allergy Intermediate 07/11/16 Yes morphine Allergy Intermediate 07/11/16 Yes promethazine Allergy Intermediate 07/11/16 Yes Uncoded Allergies Type Severity Reaction Last Updated Verified IM SHOTS Allergy Unknown 07/21/13 Physical Exam Physical Exam Constitutional: Well developed, well nourished, no acute distress, non-toxic appearance. [] Cardiovascular:Heart rate regular rhythm, no murmur [] Lungs & Thorax: Bilateral breath sounds clear to auscultation [] Abdomen: Bowel sounds normal, soft, no tenderness, no masses, no pulsatile masses. [] Skin: Warm, dry, no erythema, no rash. [] Back: No tenderness, no CVA tenderness. [] Extremities: Bilateral lower extremity exam, no swelling, no erythema. Patient is mildly tender to palpate over the tibialis anterior without bony tenderness on the left. Bilateral calves are supple. Negative Homans sign bilaterally. Neurovascular is intact distally. Neurologic: Alert and oriented X 3, normal motor function, normal sensory function, no focal deficits noted. [] Psychologic: Affect normal, judgement normal, mood normal. [] Current Patient Data Vital Signs Vital Signs Date Time Temp Pulse Resp B/P (MAP) Pulse Ox O2 Delivery O2 Flow Rate FiO2 10/07/16 13:15 98.1 76 16 98 Room Air 98.1 EKG EKG [] Radiology/Procedures Radiology/Procedures Left lower extremity venous Doppler exam reviewed by the radiologist, negative for DVT. [] Course & Med Decision Making Course & Med Decision Making Patient's well score -1. I believe an alternative diagnosis to be at least as likely as DVT. Therefore, following the well's criteria for DVT, mechanically score should be reduced by 2 points. This is reflected in the Wells DVT score I' ve assigned. Pertinent Labs and Imaging studies reviewed. (See chart for details) [] Dragon Disclaimer Dragon Disclaimer This electronic medical record was generated, in whole or in part, using a voice recognition dictation system. Departure Departure Impression: Primary Impression: Muscle strain of left lower extremity Disposition: 01 HOME, SELF-CARE Condition: STABLE Referrals: LYDIA FITZPATRICK MD (PCP) Patient Instructions: Muscle Strain Additional Instructions: Moist heat to affected area. Ibuprofen [id number] as labeled and is indicated for symptom management Problem Qualifiers Primary Impression: Muscle strain of left lower extremity Encounter type: initial encounter Qualified Codes: S86.912A - Strain of unspecified muscle(s) and tendon(s) at lower leg level, left leg, initial encounter RONI BACON PSYCH RN Oct 07, 2016 13:37
--- NOTE | 2016-10-07 14:25 | RAD ---
Indication left leg pain and swelling. Grayscale color Doppler and spectral analysis was performed. The examination was targeted to the veins of the left lower extremity. The common femoral, femoral and popliteal vessels demonstrate normal flow compressibility and augmentation. No thrombus is seen. Visualized calf veins appeared unremarkable. The right common femoral vein also appeared normal. IMPRESSION: Negative left lower extremity venous analysis for DVT
== END 2016-10-07 14:40 | disposition home or self-care (01) ==
LOC: ER 12:35
DX: S86.912A Strain of unspecified muscle(s) and tendon(s) at lower leg level, left leg, initial encounter (principal); I10 Essential (primary) hypertension; G89.29 Other chronic pain; Z90.49 Acquired absence of other specified parts of digestive tract; Z95.5 Presence of coronary angioplasty implant and graft; Z88.6 Allergy status to analgesic agent; Z88.5 Allergy status to narcotic agent; Z88.8 Allergy status to other drugs, medicaments and biological substances; X58.XXXA Exposure to other specified factors, initial encounter; Y93.01 Activity, walking, marching and hiking; Y92.89 Other specified places as the place of occurrence of the external cause; Y99.8 Other external cause status
CPT/HCPCS: 93971; 99284-25

== ENCOUNTER 2016-10-23 06:35 | Emergency (ER) | payer MEDICARE, OTHER ==
[~2016-10-23] VITALS: Ht 165.1 cm; Wt 84.8 kg
--- NOTE | 2016-10-23 07:08 | PHYS DOC ---
Past Medical History Past Medical History: DVT, Hypertension, Other Additional Past Medical Histor: chronic lower back pain Past Surgical History: Cholecystectomy, Other Additional Past Surgical Histo: cervical neck; left bunionectomy,CARDIAC STENT Alcohol Use: None Drug Use: None Adult General Chief Complaint Chief Complaint: BACK PAIN - NO INJURY HPI HPI Patient is a 71 year old female who presents with complaint of low back pain. Patient states that she awoke this morning around 3:00 AM due to worsening symptoms. Patient states that her pain started last night. Patient has history of chronic pain in her low back due to degenerative disc disease. Patient states that she has been following with Dr. Jessie Ferguson of the pain management clinic. Patient states that her pain currently is radiating into her left thigh. Patient rates pain as 10 out of 10. Patient denies any recent trauma or injury. Patient denies any loss of bowel or bladder control, foot drop, or saddle anesthesia. Patient took gabapentin and Flexeril at 3:00 AM but states that this has not helped her symptoms. Patient denies any other symptoms including dysuria, fever, nausea, or vomiting. Review of Systems Review of Systems Constitutional: Denies fever or chills [] Eyes: Denies change in visual acuity, redness, or eye pain [] HENT: Denies nasal congestion or sore throat [] Respiratory: Denies cough or shortness of breath [] Cardiovascular: Denies chest pain or edema [] GI: Denies abdominal pain, nausea, vomiting, bloody stools or diarrhea [] : Denies dysuria or hematuria [] Musculoskeletal: Back pain radiating into left leg [] Integument: Denies rash or skin lesions [] Neurologic: Denies headache, focal weakness or sensory changes [] Endocrine: Denies polyuria or polydipsia [] Current Medications Current Medications Current Medications Medications (Trade) Dose Ordered Sig/Danilo Start Time Stop Time Status Last Admin Dose Admin Dexamethasone Sodium Phosphate (Decadron) 12 mg 1X ONCE 10/23/16 07:15 10/23/16 07:16 DC 10/23/16 07:15 12 MG Hydromorphone HCl (Dilaudid) 1 mg 1X ONCE 10/23/16 07:15 10/23/16 07:16 DC 10/23/16 07:17 1 MG Allergies Allergies Allergies Coded Allergies Type Severity Reaction Last Updated Verified aspirin Allergy Intermediate 07/11/16 Yes codeine Allergy Intermediate 07/11/16 Yes diazepam Allergy Intermediate 07/11/16 Yes hydrocodone Allergy Intermediate takes PERCOCET at home 10/23/16 Yes ibuprofen Allergy Intermediate 07/11/16 Yes morphine Allergy Intermediate takes ULTRAM at home 10/23/16 Yes promethazine Allergy Intermediate 07/11/16 Yes Uncoded Allergies Type Severity Reaction Last Updated Verified IM SHOTS Allergy Unknown 07/21/13 Physical Exam Physical Exam Constitutional: Alert, afebrile, writhing in pain. [] HENT: Normocephalic, atraumatic, bilateral external ears normal, oropharynx moist, no oral exudates, nose normal. [] Eyes: PERRLA, EOMI, conjunctiva normal, no discharge. [] Neck: Normal range of motion, no tenderness, supple, no stridor. [] Cardiovascular:Heart rate regular rhythm, no murmur [] Lungs & Thorax: Bilateral breath sounds clear to auscultation [] Abdomen: Bowel sounds normal, soft, no tenderness, no masses, no pulsatile masses. [] Skin: Warm, dry, no erythema, no rash. [] Back: Left paraspinous muscle tenderness to palpation in the lower lumbar region , positive straight leg test in left lower extremity, no CVA tenderness. [] Extremities: No tenderness, no cyanosis, no clubbing, ROM intact, no edema. [] Neurologic: Alert and oriented X 3, normal motor function, normal sensory function, no focal deficits noted. [] Current Patient Data Vital Signs Vital Signs Date Time Temp Pulse Resp B/P (MAP) Pulse Ox O2 Delivery O2 Flow Rate FiO2 10/23/16 07:17 19 97 Room Air 10/23/16 06:43 99.1 79 99.1 EKG EKG Not performed [] Radiology/Procedures Radiology/Procedures Not performed [] Course & Med Decision Making Course & Med Decision Making Pertinent Labs and Imaging studies reviewed. (See chart for details) Patient was given IM Dilaudid and Decadron in the emergency department with significant control of symptoms. Patient states that she feels better like to go home. The patient was written for Medrol Dosepak and tramadol for continued outpatient treatment. Advised patient follow-up with Dr. Ferguson in the next 1-2 days for reevaluation. Advised return emergency department for any worsening symptoms. Patient voiced understanding and in agreement with treatment plan. Dragon Disclaimer Dragon Disclaimer This electronic medical record was generated, in whole or in part, using a voice recognition dictation system. Departure Departure Impression: Primary Impression: Acute exacerbation of chronic low back pain Disposition: HOME, SELF-CARE Condition: IMPROVED Referrals: LYDIA FITZPATRICK MD (PCP) JESSIE FERGUSON MD Patient Instructions: Chronic Back Pain Additional Instructions: Follow-up with Dr. Ferguson of the pain management clinic in the next 2 days for reevaluation. Return to the emergency department for any worsening symptoms. Scripts Methylprednisolone (MEDROL) 4 Mg Tab.ds.pk 1 PKG PO UD, #1 PKG Prov: WILFRED POLLOCK MD 10/23/16 Tramadol Hcl (TRAMADOL HCL) 50 Mg Tablet 1 TAB PO PRN Q6HRS Y for PAIN, #30 TAB Prov: WILFRED POLLOCK MD 10/23/16 WILFRED POLLOCK MD Oct 23, 2016 07:08
[2016-10-23] MEDS ORDERED: DEXAMETHASONE SOD PHOS 20 MG/5 ML VIAL. IM ONE (07:15)
[2016-10-23] MEDS ORDERED: HYDROmorphone 2 MG/ML VIAL IM ONE (07:15)
[2016-10-23] MEDS ORDERED: METH4TAB2 PO (07:44)
[2016-10-23] MEDS ORDERED: TRAM50TA PO (07:44)
[2016-10-23 07:50] VITALS: BP 177/84
== END 2016-10-23 07:57 | disposition home or self-care (01) ==
LOC: ER 06:35
DX: G89.29 Other chronic pain (principal); M54.5 Low back pain; I10 Essential (primary) hypertension; Z90.49 Acquired absence of other specified parts of digestive tract; Z95.5 Presence of coronary angioplasty implant and graft; Z86.718 Personal history of other venous thrombosis and embolism; Z88.6 Allergy status to analgesic agent; Z88.5 Allergy status to narcotic agent; Z88.8 Allergy status to other drugs, medicaments and biological substances
CPT/HCPCS: 96372; 99284; J1100; J1170

== ENCOUNTER 2016-10-28 21:12 | Emergency (ER) | payer MEDICARE, OTHER ==
[~2016-10-28] VITALS: Ht 165.1 cm; Wt 84.4 kg
[~2016-10-28 21:12] MED LIST changes: +METH4TAB2 PO
[2016-10-28 21:24] VITALS: BP 172/82
[2016-10-28] MEDS ORDERED: oxyCODONE/APAP 5/325 1 TAB TABLET PO ONE (22:30)
[2016-10-28] MEDS ORDERED: fentaNYL PF VIAL 100 MCG/2 ML VIAL IM ONE (22:30)
[2016-10-28] MEDS ORDERED: OXYC-323 PO (22:58)
--- NOTE | 2016-10-28 22:59 | PHYS DOC ---
Past Medical History Past Medical History: CAD, Hypertension, Kidney Infection, Kidney Stone, MD Additional Past Medical Histor: chronic lower back pain Past Surgical History: Appendectomy Additional Past Surgical Histo: disk in neck,abd surgery Alcohol Use: None Drug Use: None Adult General Chief Complaint Chief Complaint: BACK PAIN - NO INJURY HPI HPI Patient is a 71 year old female who presents with acute on chronic lower back pain. Patient states she has had 2 day history of lower back pain which is worse with movement, pain radiates down left leg. She denies any trauma or fall , no recollection of specific event causing onset of pain. She denies fevers/ chills, abdominal pain, extremity numbness/weakness, bowel/bladder incontinence/ retention, saddle anesthesia. Denies dysuria or hematuria. She states this is similar to previous exacerbation of pain. She has previous MRI documented below showing degenerative changes, spinal stenosis, compression fractures. She took tramadol & flexeril at home without relief of symptoms. Review of Systems Review of Systems Constitutional: Denies fever or chills HENT: Denies nasal congestion or sore throat Respiratory: Denies cough or shortness of breath Cardiovascular: Denies chest pain or edema GI: Denies abdominal pain, nausea, vomiting, or diarrhea : Denies dysuria or hematuria Musculoskeletal: Reports back pain Integument: Denies rash or skin lesions Neurologic: Denies headache, focal weakness or sensory changes Current Medications Current Medications Current Medications Medications (Trade) Dose Ordered Sig/Danilo Start Time Stop Time Status Last Admin Dose Admin Fentanyl Citrate (Fentanyl 2ml Vial) 50 mcg 1X ONCE 10/28/16 22:30 10/28/16 22:31 DC 10/28/16 22:48 50 MCG Oxycodone/ Acetaminophen (Percocet 5/325) 1 tab 1X ONCE 10/28/16 22:30 10/28/16 22:30 DC Allergies Allergies Allergies Coded Allergies Type Severity Reaction Last Updated Verified aspirin Allergy Intermediate 07/11/16 Yes codeine Allergy Intermediate 07/11/16 Yes diazepam Allergy Intermediate 07/11/16 Yes hydrocodone Allergy Intermediate takes PERCOCET at home 10/23/16 Yes ibuprofen Allergy Intermediate 07/11/16 Yes morphine Allergy Intermediate takes ULTRAM at home 10/23/16 Yes promethazine Allergy Intermediate 07/11/16 Yes Uncoded Allergies Type Severity Reaction Last Updated Verified IM SHOTS Allergy Unknown 07/21/13 Physical Exam Physical Exam Constitutional: obese, no acute distress, non-toxic appearance. HENT: Normocephalic, atraumatic, bilateral external ears normal, oropharynx moist, nose normal. Eyes: conjunctiva normal, no discharge. Neck: supple, no stridor. Cardiovascular: RRR, no murmurs, no edema. Lungs & Thorax: LCTAB, no wheezing, no respiratory distress. Abdomen: soft, nontender, nondistended. no pulsatile abdominal mass. Skin: Warm, dry, no erythema, no rash. Back: diffuse lumbar spine tenderness without focal spinal tenderness, no step offs, mild bilateral paraspinous muscle tenderness. Extremities: No tenderness, no edema. distal pulses palpable to bilateral LE, symmetric strength/sensation to LE. Neurologic: Alert and oriented X 3, no focal deficits noted. Psychologic: Affect normal, judgement normal, mood normal. Current Patient Data Vital Signs Vital Signs Date Time Temp Pulse Resp B/P (MAP) Pulse Ox O2 Delivery O2 Flow Rate FiO2 10/28/16 21:24 98.1 68 20 99 Room Air 98.1 EKG EKG [] Radiology/Procedures Radiology/Procedures MRI 06/2016 PROCEDURE: LUMBAR SPINE WO CONTRAST PROCEDURE Lumbar spine MRI without contrast. HISTORY Pain. TECHNIQUE Multiplanar and multi sequence magnetic resonance imaging of the lumbar spine was performed without contrast. COMPARISON None. FINDINGS There is grade 1 anterolisthesis of L4 on L5, measuring 5 mm. There is minimal grade 1 anterolisthesis of L5 on S1, measuring 2 mm. There is grade 1 anterolisthesis of L1 on L2 measuring 4 mm, a component of which is due to a mild chronic L2 compression fracture with slight retropulsion of the L2 cortex into the central canal. There is heterogeneous signal within T11 with associated mild decreased T1 vertebral body height, also likely due to a chronic fracture. There is also diffusely heterogeneous signal throughout the remainder of the vertebral and sacral marrow, likely due to fatty marrow placement. The conus terminates at L1. There is a filum lipoma, measuring 2 mm in caliber. There is no evidence of a tethered cord. There are small simple appearing renal cysts. There is suspected slight congenital narrowing of the central canal at the lumbar levels. There is slight epidural lipomatosis. At L1-L2, there is a disc bulge. There is mild facet arthropathy. There is slight hypertrophy of the ligamentum flavum. There is mild left foraminal stenosis. At L2-L3, there is a disc bulge and endplate remodeling. There is mild facet arthropathy. There is hypertrophy of the ligamentum flavum. There is mild left greater than right foraminal stenosis. There is minimal central canal stenosis. At L3-L4, there is a disc bulge and endplate remodeling. There is mild facet arthropathy. There is hypertrophy of the ligamentum flavum. There is no stenosis. At L4-L5, there is a disc bulge and endplate remodeling. There is severe facet arthropathy. There is hypertrophy of the ligamentum flavum. There is grade 1 anterolisthesis. There is mild bilateral foraminal stenosis. There is severe central canal stenosis. At L5-S1, there is a diffuse disc bulge with posterior lateral endplate osteophytosis. There is mild facet arthropathy. There is mild to moderate bilateral foraminal stenosis. There is mild central canal stenosis. IMPRESSION 1. Multilevel degenerative change throughout the lumbar spine, resulting in stenosis as described in detail above. Findings are most significant at L4-L5, resulting in severe central canal stenosis. These findings are similar compared to the prior study. 2. Stable mild chronic compression deformities of T11 and L2. There is heterogeneous marrow signal at these levels which may be due to heterogeneous marrow replacement, Paget's disease or pathologic fractures. The stability compared to the prior study favors benignity. 3. Suspected slight congenital narrowing of the central canal and mild epidural lipomatosis. 4. Small filum lipoma. 5. Grade 1 anterolisthesis of L4 on L5. Electronically signed by: Shalonda Levine (Jul 11, 2016 12:34:02) DICTATED and SIGNED BY: SHALONDA LEVINE MD DATE: 07/11/16 1234[] Course & Med Decision Making Course & Med Decision Making Pertinent Labs and Imaging studies reviewed. (See chart for details) The patient presents with acute on chronic back pain. She states similar to previous pain, declines imaging which is acceptable as no trauma & no acute neuro deficits or other concerning new symptoms. Gave IM morphine in the ED, gave prescription for percocet for pain. Recommend rest, ice/heat, continue tramadol & flexeril, gentle stretches, follow up with primary care in 2-3 days if not improving. Return to the emergency department for symptoms of cauda equina syndrome or otherwise worsening condition. Discharged home in stable condition. [] Dragon Disclaimer Dragon Disclaimer This electronic medical record was generated, in whole or in part, using a voice recognition dictation system. Departure Departure Impression: Primary Impression: Acute exacerbation of chronic low back pain Disposition: HOME, SELF-CARE Condition: STABLE Referrals: LYDIA FITZPATRICK MD (PCP) Patient Instructions: Chronic Back Pain Additional Instructions: You were seen in the emergency department today for back pain. Please rest, apply ice or heat, continue taking tramadol and Flexeril. If needed take Percocet for breakthrough pain. No drinking alcohol or driving while taking this medication. Follow-up as soon as possible with primary care physician ideally within about 2 days. Return to the emergency department for numbness or weakness in legs, loss of control of bowels or bladder him a numbness in your groin, any otherwise worsening condition. Scripts Oxycodone/Apap 5-325 (PERCOCET 5-325 MG TABLET) 1 Each Tablet 1-2 TAB PO Q4-6HRS, #10 TAB Prov: GRETTA JOHNSON MD 10/28/16 GRETTA JOHNSON MD Oct 28, 2016 22:58
== END 2016-10-28 23:18 | disposition home or self-care (01) ==
LOC: ER 21:12
DX: G89.29 Other chronic pain (principal); M54.5 Low back pain; I25.10 Atherosclerotic heart disease of native coronary artery without angina pectoris; I25.2 Old myocardial infarction; I10 Essential (primary) hypertension; E66.9 Obesity, unspecified; Z90.49 Acquired absence of other specified parts of digestive tract; Z87.442 Personal history of urinary calculi; Z88.6 Allergy status to analgesic agent; Z88.5 Allergy status to narcotic agent; Z88.8 Allergy status to other drugs, medicaments and biological substances; Z68.31 Body mass index [BMI] 31.0-31.9, adult
CPT/HCPCS: 96372; 99283; J3010

== ENCOUNTER 2016-12-01 21:12 | Emergency (ER) | payer MEDICARE, OTHER ==
[~2016-12-01] VITALS: Ht 165.1 cm; Wt 84.4 kg
[2016-12-01 21:24] VITALS: BP 181/86
[2016-12-01] MEDS ORDERED: METH4TAB2 PO (21:40)
--- NOTE | 2016-12-01 21:40 | PHYS DOC ---
Past Medical History Past Medical History: CAD, Hypertension, Kidney Infection, Kidney Stone, [place] Additional Past Medical Histor: chronic lower back pain Past Surgical History: Appendectomy Additional Past Surgical Histo: disk in neck,abd surgery Alcohol Use: None Drug Use: None Adult General Chief Complaint Chief Complaint: BACK PAIN - NO INJURY HPI HPI Patient is a 71 year old female with history of chronic low back pain with sciatica to the left, hypertension,who presents with complaints of chronic low back pain. Patient denies any trauma. She states pain radiates to the left lower extremity which is chronic. Patient appears lethargic. She can barely keep her eyes open. She states she took Ultram oxycodone and muscle relaxer prior to coming to the ED. Patient denies any loss of bowel/ bladder function. She states she follows up with her PCP Dr. Jeffrey Segura who has referred her to a new doctor at [place]. Review of Systems Review of Systems Constitutional: Denies fever or chills [] GI: Denies abdominal pain, nausea, vomiting, bloody stools or diarrhea [] : Denies dysuria or hematuria [] Musculoskeletal: low back pain radiating to the left lower extremity Integument: Denies rash or skin lesions [] Neurologic: Denies headache, focal weakness or sensory changes [] Current Medications Current Medications Current Medications Medications (Trade) Dose Ordered Sig/Danilo Start Time Stop Time Status Last Admin Dose Admin Dexamethasone Sodium Phosphate (Decadron) 10 mg 1X ONCE 12/01/16 22:00 12/01/16 22:01 Allergies Allergies Allergies Coded Allergies Type Severity Reaction Last Updated Verified aspirin Allergy Intermediate 07/11/16 Yes codeine Allergy Intermediate 07/11/16 Yes diazepam Allergy Intermediate 07/11/16 Yes hydrocodone Allergy Intermediate takes PERCOCET at home 10/23/16 Yes ibuprofen Allergy Intermediate 07/11/16 Yes morphine Allergy Intermediate takes ULTRAM at home 10/23/16 Yes promethazine Allergy Intermediate 07/11/16 Yes Uncoded Allergies Type Severity Reaction Last Updated Verified IM SHOTS Allergy Unknown 07/21/13 Physical Exam Physical Exam Constitutional: Well developed, well nourished, no acute distress, non-toxic appearance. [] HENT: Normocephalic, atraumatic, bilateral external ears normal, oropharynx moist, no oral exudates, nose normal. [] Eyes: PERRLA, EOMI, conjunctiva normal, no discharge. [] Neck: Normal range of motion, no tenderness, supple, no stridor. [] Cardiovascular:Heart rate regular rhythm, no murmur [] Lungs & Thorax: Bilateral breath sounds clear to auscultation [] Abdomen: Bowel sounds normal, soft, no tenderness, no masses, no pulsatile masses. [] Skin: Warm, dry, no erythema, no rash. [] Back: Diffuse paraspinal muscle tenderness to the left SI joint, no midline lumbar spine tenderness, no CVA tenderness. [] Extremities: No tenderness, no cyanosis, no clubbing, ROM intact, no edema. [] Neurologic: Alert and oriented X 3, normal motor function, normal sensory function, no focal deficits noted. [] Psychologic: Patient appears lethargic. Current Patient Data Vital Signs Vital Signs Date Time Temp Pulse Resp B/P (MAP) Pulse Ox O2 Delivery O2 Flow Rate FiO2 12/01/16 21:24 98.2 88 20 99 Room Air 98.2 EKG EKG [] Radiology/Procedures Radiology/Procedures [] Course & Med Decision Making Course & Med Decision Making Pertinent Labs and Imaging studies reviewed. (See chart for details) This is a 71-year-old female patient with history of chronic back pain presenting to the ED today with chronic back pain. Patient is requesting something for pain. She appears lethargic. She states she read he took hydrocodone cyclobenzaprine and Ultram prior to coming to the ED and would like more pain medicine. Informed patient I will give her Decadron in the ED and discharged with Medrol Dosepak but she will not be given any narcotics during today's visit. I requested she contacts her doctor on Sunday and follows up as soon as possible. Dragon Disclaimer Dragon Disclaimer This electronic medical record was generated, in whole or in part, using a voice recognition dictation system. Departure Departure Impression: Primary Impression: Chronic back pain Additional Impression: Chronic sciatica of left side Disposition: HOME, SELF-CARE Condition: STABLE Referrals: JEFFREY SEGURA MD (PCP) Follow-up with your doctor on Sunday Patient Instructions: Back Pain, Adult, Sciatica Additional Instructions: You seen for chronic low back pain. Follow-up with your doctor on Sunday. Come back to the emergency room if symptoms worsen. Scripts Methylprednisolone (MEDROL) 4 Mg Tab.ds.pk 1 PKG PO UD, #1 PKG Prov: DANNY DREW [employer]ANDING SUPERVISOR 12/01/16 Problem Qualifiers Primary Impression: Chronic back pain Back pain location: low back pain Back pain laterality: left Sciatica presence: with sciatica Sciatica laterality: sciatica of left side Qualified Codes: M54.42 - Lumbago with sciatica, left side; G89.29 - Other chronic pain MANIDANNY ALVARADO [employer]ANDING SUPERVISOR Dec 01, 2016 21:40
[2016-12-01] MEDS ORDERED: DEXAMETHASONE SOD PHOS 20 MG/5 ML VIAL. IM ONE (22:00)
== END 2016-12-01 21:46 | disposition home or self-care (01) ==
LOC: ER 21:12
DX: G89.29 Other chronic pain (principal); M54.42 Lumbago with sciatica, left side; I10 Essential (primary) hypertension; I25.10 Atherosclerotic heart disease of native coronary artery without angina pectoris; Z87.442 Personal history of urinary calculi; I25.2 Old myocardial infarction; Z90.49 Acquired absence of other specified parts of digestive tract; Z88.6 Allergy status to analgesic agent; Z88.5 Allergy status to narcotic agent; Z88.8 Allergy status to other drugs, medicaments and biological substances
CPT/HCPCS: 96372; 99283; J1100

== ENCOUNTER 2017-01-14 06:37 | Emergency (ER) | payer MEDICARE, OTHER ==
[~2017-01-14] VITALS: Ht 165.1 cm; Wt 88.0 kg
[2017-01-14] MEDS ORDERED: IV NORMAL SALINE 500ML BAG 500 ML IV ONE (07:00)
[2017-01-14] MEDS ORDERED: LABETALOL 20 MG/4 ML DISP.SYRIN. IVP ONE (07:00)
[2017-01-14 07:21] LABS: BILIRUBIN,URINE NEGATIVE (NEG); GLUCOSE,URINE NEGATIVE (NEG); NITRITE,URINE NEGATIVE (NEG); PROTEIN,URINE NEGATIVE (NEG-TRACE)
[2017-01-14 07:29] LABS: OBC FLU VALID
[2017-01-14 07:32] LABS: BACTERIA,URINE 0 /HPF (0-FEW); RBC,URINE OCC /HPF (0-2); SQUAMOUS EPITHELIAL CELL,UR MOD /LPF
--- NOTE | 2017-01-14 07:37 | RAD ---
CHEST AP ONLY Clinical Indication: generalized aches Comparison: Acute abdomen series dated 03/11/2014, chest radiograph dated 09/28/2011 Findings: Normal lung volume. No focal consolidation. Normal pulmonary vasculature. No pleural effusion or pneumothorax. Stable cardiomegaly. The great vessels of the thorax are stable. No acute osseous abnormality. IMPRESSION: 1. No focal consolidation. 2. Stable cardiomegaly.
[2017-01-14] MEDS: LABETALOL 20 MG/4 ML DISP.SYRIN. IVP ONE ×2 (07:39→08:22)
[2017-01-14 07:40] LABS: BASO % 1 % (0-3); EOS % 3 % (0-3); HEMATOCRIT 32.3 % (36.0-47.0); HEMOGLOBIN 10.3 g/dL (12.0-15.5); LYMPH # 1.8 x10^3/uL (1.0-4.8); LYMPH % 33 % (24-48); MEAN CORPUSCULAR HEMOGLOBIN 30 pg (25-35); MEAN CORPUSCULAR HGB CONC 32 g/dL (31-37); MEAN CORPUSCULAR VOLUME 92 fL (79-100); MONO % 10 % (0-9); NEUT % 53 % (31-73); PLATELET COUNT 329 x10^3/uL (140-400); RED CELL DISTRIBUTION WIDTH 14.3 % (11.5-14.5); WHITE BLOOD COUNT 5.4 x10^3/uL (4.0-11.0)
--- NOTE | 2017-01-14 07:45 | PHYS DOC ---
Past Medical History Past Medical History: CAD, Hypertension, Other Additional Past Medical Histor: PEPCID ULCER, BACK PROBLEMS Past Surgical History: Cholecystectomy, Tonsillectomy, Other Additional Past Surgical Histo: RIGHT WRIST, ABD EXPLORATORY,CARDIA STENT, NECK FUSION Alcohol Use: None Drug Use: None Adult General Chief Complaint Chief Complaint: GENERALIZED BODY ACHES HPI HPI This is a pleasant 71-year-old female presenting to the emergency department today with generalized body aches from "head to toe." She reports since starting within the last 24 hours. She has had a cough that is dry and nonproductive over the past week that is associated with her symptoms. She denies any fevers chills nausea vomiting. She describes it as a dull achy pain. It is nonradiating and constant. Otherwise she denies any other ailments. Review of systems was negative for specific chest pain or specific abdominal pain or shortness of breath. She denies diarrhea or constipation. All other review of systems is negative unless otherwise noted in history of present illness. ED course: 71-year-old female presenting to the emergency Department generalized fatigue and body aches. Patient notably elevated in the emergency department which was brought down with 20 mg of labetalol. Otherwise afebrile with a normal heart rate. EKG obtained and compared to previous on July 06, 2016 which is similar to previous. Of note lead V3 has varying isoelectric baseline is difficult to interpret. Likely secondary to machine artifact. Chest x-ray obtained along with influenza testing and blood work. Patient's blood pressure responded to the labetalol. Blood work unremarkable. Otherwise testing unremarkable. I offered the patient acetaminophen for her pain was she was here which she declined. The patient was then discharged home in stable condition to follow up with their primary care physician over the next 2-3 days. They were to return if their symptoms worsened or if they were concerned for any reason. [id number] discharge instructions and return precautions were given. Patient' s questions were answered to their satisfaction. Patient is comfortable plan. Review of Systems Review of Systems SEE ABOVE. Current Medications Current Medications Current Medications Medications (Trade) Dose Ordered Sig/Danilo Start Time Stop Time Status Last Admin Dose Admin Acetaminophen (Tylenol) 650 mg 1X ONCE 01/14/17 08:45 01/14/17 08:45 DC Labetalol HCl (Normodyne) 20 mg 1X ONCE 01/14/17 07:45 01/14/17 07:46 DC 01/14/17 08:22 20 MG Sodium Chloride 500 ml @ 500 mls/hr 1X ONCE 01/14/17 07:00 01/14/17 07:59 DC 01/14/17 07:27 500 MLS/HR Allergies Allergies Allergies Coded Allergies Type Severity Reaction Last Updated Verified aspirin Allergy Intermediate 07/11/16 Yes codeine Allergy Intermediate 07/11/16 Yes diazepam Allergy Intermediate 07/11/16 Yes hydrocodone Allergy Intermediate takes PERCOCET at home 10/23/16 Yes ibuprofen Allergy Intermediate 07/11/16 Yes morphine Allergy Intermediate takes ULTRAM at home 10/23/16 Yes promethazine Allergy Intermediate 07/11/16 Yes Uncoded Allergies Type Severity Reaction Last Updated Verified IM SHOTS Allergy Unknown 07/21/13 Physical Exam Physical Exam SEE ABOVE Constitutional: Well developed, well nourished, no acute distress, non-toxic appearance. HENT: Normocephalic, atraumatic, bilateral external ears normal, oropharynx moist, no oral exudates, nose normal. [] Eyes: PERRLA, EOMI, conjunctiva normal, no discharge. Neck: Normal range of motion, no tenderness, supple, no stridor. Cardiovascular:Heart rate regular rhythm, no murmur [] Lungs & Thorax: Bilateral breath sounds clear to auscultation Abdomen: Bowel sounds normal, soft, no tenderness, no masses, no pulsatile masses. Skin: Warm, dry, no erythema, no rash. [] Back: No tenderness, no CVA tenderness. Extremities: No tenderness, no cyanosis, no clubbing, ROM intact, no edema. Neurologic: Alert and oriented X 3, normal motor function, normal sensory function, no focal deficits noted. [] Psychologic: Affect normal, judgement normal, mood normal. [] Current Patient Data Vital Signs Vital Signs Date Time Temp Pulse Resp B/P (MAP) Pulse Ox O2 Delivery O2 Flow Rate FiO2 01/14/17 08:31 72 17 172/77 (108) 99 Room Air 01/14/17 06:42 97.8 97.8 Lab Values Laboratory Tests Test 01/14/17 06:44 01/14/17 07:10 01/14/17 07:30 Influenza Type A Antigen Negative (NEGATIVE) Influenza Type B Antigen Negative (NEGATIVE) Urine Collection Type Unknown Urine Color Yellow Urine Clarity Cloudy Urine pH 8.0 Urine Specific [place] 1.015 Urine Protein Negative mg/dL (NEG-TRACE) Urine Glucose (UA) Negative mg/dL (NEG) Urine Ketones (Stick) Negative mg/dL (NEG) Urine Blood Negative (NEG) Urine Nitrite Negative (NEG) Urine Bilirubin Negative (NEG) Urine Urobilinogen Dipstick 1.0 mg/dL (0.2 mg/dL) Urine Leukocyte Esterase Negative (NEG) Urine RBC Occ /HPF (0-2) Urine WBC 1-4 /HPF (0-4) Urine Squamous Epithelial Cells Mod /LPF Urine Bacteria 0 /HPF (0-FEW) White Blood Count 5.4 x10^3/uL (4.0-11.0) Red Blood Count 3.50 x10^6/uL (3.50-5.40) Hemoglobin 10.3 g/dL (12.0-15.5) L Hematocrit 32.3 % (36.0-47.0) L Mean Corpuscular Volume 92 fL (79-100) Mean Corpuscular Hemoglobin 30 pg (25-35) Mean Corpuscular Hemoglobin Concent 32 g/dL (31-37) Red Cell Distribution Width 14.3 % (11.5-14.5) Platelet Count 329 x10^3/uL (140-400) Neutrophils (%) (Auto) 53 % (31-73) Lymphocytes (%) (Auto) 33 % (24-48) Monocytes (%) (Auto) 10 % (0-9) H Eosinophils (%) (Auto) 3 % (0-3) Basophils (%) (Auto) 1 % (0-3) Neutrophils # (Auto) 2.9 x10^3uL (1.8-7.7) Lymphocytes # (Auto) 1.8 x10^3/uL (1.0-4.8) Monocytes # (Auto) 0.6 x10^3/uL (0.0-1.1) Eosinophils # (Auto) 0.2 x10^3/uL (0.0-0.7) Basophils # (Auto) 0.0 x10^3/uL (0.0-0.2) Sodium Level 144 mmol/L (136-145) Potassium Level 4.4 mmol/L (3.5-5.1) Chloride Level 109 mmol/L (98-107) H Carbon Dioxide Level 28 mmol/L (21-32) Anion Gap 7 (6-14) Blood Urea Nitrogen 16 mg/dL (7-20) Creatinine 1.3 mg/dL (0.6-1.0) H Estimated GFR (Cockcroft-Gault) 49.0 Glucose Level 96 mg/dL (70-99) Lactic Acid Level 1.1 mmol/L (0.4-2.0) Calcium Level 8.9 mg/dL (8.5-10.1) Total Bilirubin 0.1 mg/dL (0.2-1.0) L Direct Bilirubin < 0.1 mg/dL (0.0-0.2) Aspartate Amino Transferase (AST) 18 U/L (15-37) Alanine Aminotransferase (ALT) 17 U/L (14-59) Alkaline Phosphatase 272 U/L (46-116) H Troponin I Quantitative < 0.017 ng/mL (0.000-0.055) MN-Qlp-H-Type Natriuretic Peptide 232 pg/mL (0-124) H Total Protein 7.3 g/dL (6.4-8.2) Albumin 3.5 g/dL (3.4-5.0) Lipase 166 U/L (73-393) Laboratory Tests 01/14/17 07:30 Laboratory Tests 01/14/17 07:30 EKG EKG [] Radiology/Procedures Radiology/Procedures [] Course & Med Decision Making Course & Med Decision Making Pertinent Labs and Imaging studies reviewed. (See chart for details) [] Dragon Disclaimer Dragon Disclaimer This electronic medical record was generated, in whole or in part, using a voice recognition dictation system. Departure Departure Impression: Primary Impression: Body aches Additional Impression: Fatigue Disposition: HOME, SELF-CARE Condition: STABLE Referrals: LYDIA FITZPATRICK MD (PCP) Patient Instructions: Myalgia, Adult Additional Instructions: Thank you for allowing us to participate in your care today. Followup with your primary care physician in 3 days if your symptoms do not improve. Call your Primary Doctor tomorrow and inform them of your visit today. If you do not have a primary care provider you can ask for a list of our primary care providers. Return to the emergency department you have any new or concerning findings. This should be evaluated by the primary care physician and any necessary consulting services for continued management within a few days after discharge. Return to emergency room if you have any new or concerning symptoms including but not limited to fever, chills, nausea, vomiting, intractable pain, any new rashes, chest pain, shortness of air, uncontrolled bleeding, difficulty breathing, and/or vision loss. Problem Qualifiers CHRISTINA MOREIRA MD Jan 14, 2017 07:45
[2017-01-14 07:50] LABS: ANION GAP 7 (6-14); BLOOD UREA NITROGEN 16 mg/dL (7-20); CALCIUM 8.9 mg/dL (8.5-10.1); CARBON DIOXIDE 28 mmol/L (21-32); CHLORIDE 109 mmol/L (98-107); CREATININE 1.3 mg/dL (0.6-1.0); GLUCOSE 96 mg/dL (70-99); POTASSIUM 4.4 mmol/L (3.5-5.1); SODIUM 144 mmol/L (136-145)
[2017-01-14 07:56] LABS: ALBUMIN 3.5 g/dL (3.4-5.0); ALK PHOS 272 U/L (46-116); ALT (SGPT) 17 U/L (14-59); AST (SGOT) 18 U/L (15-37); DIRECT BILIRUBIN < 0.1 mg/dL (0.0-0.2); TOTAL BILIRUBIN 0.1 mg/dL (0.2-1.0); TOTAL PROTEIN 7.3 g/dL (6.4-8.2)
[2017-01-14] MEDS: ACETAMINOPHEN 325 MG TABLET. PO ONE ×2 (08:13→08:16)
[2017-01-14 08:31] VITALS: BP 172/77
--- NOTE | 2017-01-14 12:08 | EKG ---
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
== END 2017-01-14 08:41 | disposition home or self-care (01) ==
LOC: ER 06:37
DX: M79.1 Myalgia (principal); R53.83 Other fatigue; R05 Cough; I25.10 Atherosclerotic heart disease of native coronary artery without angina pectoris; I10 Essential (primary) hypertension; Z95.5 Presence of coronary angioplasty implant and graft; Z88.6 Allergy status to analgesic agent; Z88.5 Allergy status to narcotic agent; Z88.8 Allergy status to other drugs, medicaments and biological substances
CPT/HCPCS: 36415; 71010; 80048; 80076; 81001; 83605; 83690; 83880; 84484; 85025; 87804; 93005; 96361; 96374; 96376; 99285; J3490; J7040

== ENCOUNTER 2017-04-21 19:02 | Emergency (ER) | payer MEDICARE, OTHER ==
[2017-04-21 19:42] LABS: BILIRUBIN,URINE NEGATIVE (NEG); CLARITY,URINE CLEAR; COLOR,URINE YELLOW; GLUCOSE,URINE NEGATIVE (NEG); NITRITE,URINE NEGATIVE (NEG); PH,URINE 6.5; PROTEIN,URINE NEGATIVE (NEG-TRACE); UROBILINOGEN,URINE 0.2 mg/dL (0.2 mg/dL)
[2017-04-21 19:51] LABS: ADD MAN DIFF? NO
[2017-04-21 19:56] LABS: BASO % 1 % (0-3); EOS # 0.2 x10^3/uL (0.0-0.7); EOS % 2 % (0-3); HEMATOCRIT 32.6 % (36.0-47.0); HEMOGLOBIN 10.5 g/dL (12.0-15.5); LYMPH # 2.3 x10^3/uL (1.0-4.8); LYMPH % 34 % (24-48); MEAN CORPUSCULAR HEMOGLOBIN 28 pg (25-35); MEAN CORPUSCULAR HGB CONC 32 g/dL (31-37); MEAN CORPUSCULAR VOLUME 86 fL (79-100); MONO # 0.6 x10^3/uL (0.0-1.1); MONO % 10 % (0-9); NEUT # 3.6 x10^3uL (1.8-7.7); NEUT % 53 % (31-73); PLATELET COUNT 401 x10^3/uL (140-400); RED BLOOD COUNT 3.78 x10^6/uL (3.50-5.40); RED CELL DISTRIBUTION WIDTH 16.1 % (11.5-14.5); WHITE BLOOD COUNT 6.7 x10^3/uL (4.0-11.0)
[2017-04-21 19:57] LABS: BACTERIA,URINE 0 /HPF (0-FEW); RBC,URINE 0 /HPF (0-2); SQUAMOUS EPITHELIAL CELL,UR MOD /LPF; WBC,URINE 0 /HPF (0-4)
[2017-04-21 20:00] LABS: INFLUENZA A PATIENT NEGATIVE (NEGATIVE); INFLUENZA B PATIENT NEGATIVE (NEGATIVE); OBC FLU VALID
[2017-04-21 20:51] LABS: ANION GAP 11 (6-14); BLOOD UREA NITROGEN 15 mg/dL (7-20); BUN/CREATININE RATIO 19 (6-20); CALCIUM 8.9 mg/dL (8.5-10.1); CARBON DIOXIDE 23 mmol/L (21-32); CHLORIDE 110 mmol/L (98-107); CREATININE 0.8 mg/dL (0.6-1.0); GFR 85.8; GLUCOSE 97 mg/dL (70-99); POTASSIUM 3.5 mmol/L (3.5-5.1); SODIUM 144 mmol/L (136-145)
[2017-04-21 20:51] LABS: TROPONINI < 0.017 ng/mL (0.000-0.055)
[2017-04-21 20:56] LABS: ALBUMIN 3.7 g/dL (3.4-5.0); ALBUMIN/GLOBULIN RATIO 1.4 (1.0-1.7); ALK PHOS 295 U/L (46-116); ALT (SGPT) 18 U/L (14-59); AST (SGOT) 11 U/L (15-37); TOTAL BILIRUBIN 0.2 mg/dL (0.2-1.0); TOTAL PROTEIN 6.4 g/dL (6.4-8.2)
== END 2017-04-21 21:40 | disposition home or self-care (01) ==
LOC: ER 19:02
DX: G89.29 Other chronic pain (principal); M54.9 Dorsalgia, unspecified; I10 Essential (primary) hypertension; I25.10 Atherosclerotic heart disease of native coronary artery without angina pectoris; Z86.718 Personal history of other venous thrombosis and embolism; Z88.6 Allergy status to analgesic agent; Z88.5 Allergy status to narcotic agent; Z88.8 Allergy status to other drugs, medicaments and biological substances
CPT/HCPCS: 36415; 71046; 80053; 81001; 84484; 85025; 87804; 87804-59; 93005; 99285-25

== ENCOUNTER 2017-05-31 16:32 | Inpatient (IN) | payer MEDICARE, OTHER ==
[2017-05-31 17:32] LABS: ADD MAN DIFF? NO
[2017-05-31 17:35] LABS: BASO % 1 % (0-3); EOS # 0.1 x10^3/uL (0.0-0.7); EOS % 3 % (0-3); HEMATOCRIT 29.6 % (36.0-47.0); HEMOGLOBIN 9.5 g/dL (12.0-15.5); LYMPH # 1.4 x10^3/uL (1.0-4.8); LYMPH % 24 % (24-48); MEAN CORPUSCULAR HEMOGLOBIN 26 pg (25-35); MEAN CORPUSCULAR HGB CONC 32 g/dL (31-37); MEAN CORPUSCULAR VOLUME 81 fL (79-100); MONO # 0.7 x10^3/uL (0.0-1.1); MONO % 12 % (0-9); NEUT # 3.6 x10^3uL (1.8-7.7); NEUT % 62 % (31-73); PLATELET COUNT 487 x10^3/uL (140-400); RED BLOOD COUNT 3.68 x10^6/uL (3.50-5.40); RED CELL DISTRIBUTION WIDTH 16.9 % (11.5-14.5); WHITE BLOOD COUNT 5.8 x10^3/uL (4.0-11.0)
[2017-05-31] MEDS: IV NORMAL SALINE 1000ML BAG 1,000 ML IV (17:43)
[2017-05-31 17:46] LABS: PROTHROMBIN TIME PATIENT 12.8 SEC (11.7-14.0)
[2017-05-31 17:48] LABS: ANION GAP 5 (6-14); BLOOD UREA NITROGEN 15 mg/dL (7-20); BUN/CREATININE RATIO 14 (6-20); CALCIUM 9.1 mg/dL (8.5-10.1); CARBON DIOXIDE 28 mmol/L (21-32); CHLORIDE 104 mmol/L (98-107); CREATININE 1.1 mg/dL (0.6-1.0); GFR 59.4; GLUCOSE 113 mg/dL (70-99); POTASSIUM 4.6 mmol/L (3.5-5.1); SODIUM 137 mmol/L (136-145)
[2017-05-31 17:54] LABS: ALBUMIN 3.9 g/dL (3.4-5.0); ALBUMIN/GLOBULIN RATIO 1.1 (1.0-1.7); ALK PHOS 337 U/L (46-116); ALT (SGPT) 19 U/L (14-59); AST (SGOT) 14 U/L (15-37); DIRECT BILIRUBIN 0.1 mg/dL (0.0-0.2); LIPASE 111 U/L (73-393); MAGNESIUM 2.7 mg/dL (1.8-2.4); TOTAL BILIRUBIN 0.3 mg/dL (0.2-1.0); TOTAL PROTEIN 7.4 g/dL (6.4-8.2)
[2017-05-31 17:56] LABS: TROPONINI < 0.017 ng/mL (0.000-0.055)
[2017-05-31 18:02] LABS: CKMB MASS 0.8 ng/mL (0.0-3.6); CREATINE KINASE 57 U/L (26-192)
[2017-05-31 18:02] LABS: NT-PRO BNP 62 pg/mL (0-124)
[2017-05-31 18:50] LABS: FECAL OB PT NEGATIVE (NEG); NEG OBC FOB NEG; POS OBC FOB POS
[2017-05-31 20:01] LABS: LACTIC ACID 1.3 mmol/L (0.4-2.0)
[2017-05-31 20:34] LABS: BILIRUBIN,URINE NEGATIVE (NEG); CLARITY,URINE CLEAR; COLOR,URINE YELLOW; GLUCOSE,URINE NEGATIVE (NEG); NITRITE,URINE NEGATIVE (NEG); PROTEIN,URINE NEGATIVE (NEG-TRACE); UROBILINOGEN,URINE 0.2 mg/dL (0.2 mg/dL)
[2017-05-31 20:39] LABS: BACTERIA,URINE 0 /HPF (0-FEW); RBC,URINE 0 /HPF (0-2); SQUAMOUS EPITHELIAL CELL,UR FEW /LPF; WBC,URINE 0 /HPF (0-4)
[2017-05-31 20:41] LABS: AMPHETAMINE/METHAMPHETAMINE NEG (NEG); BARBITURATES NEG (NEG); BENZODIAZEPINES NEG (NEG); CANNABINOIDS NEG (NEG); COCAINE NEG (NEG); ETHANOL, URINE NEG (NEG); METHADONE NEG (NEG); OPIATES NEG (NEG); PHENCYCLIDINE NEG (NEG)
[2017-05-31] MEDS ORDERED: ONDANSETRON PF 4 MG/2 ML VIAL. IV (21:15)
[2017-06-01 03:16] LABS: TROPONINI < 0.017 ng/mL (0.000-0.055)
[2017-06-01 04:39] LABS: ADD MAN DIFF? NO
[2017-06-01 04:48] LABS: BASO % 1 % (0-3); EOS # 0.2 x10^3/uL (0.0-0.7); EOS % 3 % (0-3); HEMATOCRIT 29.5 % (36.0-47.0); HEMOGLOBIN 9.2 g/dL (12.0-15.5); LYMPH # 1.9 x10^3/uL (1.0-4.8); LYMPH % 32 % (24-48); MEAN CORPUSCULAR HEMOGLOBIN 25 pg (25-35); MEAN CORPUSCULAR HGB CONC 31 g/dL (31-37); MEAN CORPUSCULAR VOLUME 81 fL (79-100); MONO # 0.6 x10^3/uL (0.0-1.1); MONO % 11 % (0-9); NEUT % 53 % (31-73); PLATELET COUNT 429 x10^3/uL (140-400); RED BLOOD COUNT 3.64 x10^6/uL (3.50-5.40); RED CELL DISTRIBUTION WIDTH 16.5 % (11.5-14.5); WHITE BLOOD COUNT 5.8 x10^3/uL (4.0-11.0)
[2017-06-01 05:09] LABS: ANION GAP 8 (6-14); BLOOD UREA NITROGEN 11 mg/dL (7-20); CALCIUM 9.1 mg/dL (8.5-10.1); CARBON DIOXIDE 26 mmol/L (21-32); CHLORIDE 106 mmol/L (98-107); GFR 66.3; GLUCOSE 91 mg/dL (70-99); POTASSIUM 4.2 mmol/L (3.5-5.1); SODIUM 140 mmol/L (136-145)
[2017-06-01 05:22] LABS: TROPONINI < 0.017 ng/mL (0.000-0.055)
[2017-06-01] MEDS: CYCLOBENZAPRINE 10 MG TABLET. PO ×3 (09:00→21:00)
[2017-06-01 10:01] LABS: RETIC COUNT 1.5 % (0.5-2.5)
[2017-06-01 10:08] LABS: % SAT IRON 4 % (15-34); IRON,SERUM 21 ug/dL (50-170)
[2017-06-01] MEDS: IV RINGERS,LACTATED 1000ML 1,000 ML IV (10:13)
[2017-06-01 10:15] LABS: AMYLASE 33 U/L (25-115)
[2017-06-01 10:15] LABS: FERRITIN 10 ng/mL (8-252); LIPASE 100 U/L (73-393)
[2017-06-01 10:21] LABS: VITAMIN-B12 1477 pg/mL (247-911)
[2017-06-01] MEDS ORDERED: PROPOFOL 20 ML IV (10:34)
[2017-06-01] MEDS ORDERED: LIDOCAINE 1% PF 2 ML VIAL. (10:34)
[2017-06-01] MEDS: HYDROcodone/APAP 5/325MG 1 TAB TABLET PO (12:51)
[2017-06-01] MEDS: PANTOPRAZOLE 40 MG TABLET.DR. PO (12:51)
[2017-06-01] MEDS: LISINOPRIL 10 MG TABLET PO (12:51)
[2017-06-01] MEDS: amLODIPine BESYLATE 5 MG TABLET PO (12:51)
[2017-06-02 02:18] LABS: HAPTOGLOBIN 161 mg/dL (34-200)
[2017-06-02] MEDS: IV RINGERS,LACTATED 1000ML 1,000 ML IV ×2 (04:34→12:26)
[2017-06-02 04:41] LABS: ADD MAN DIFF? NO
[2017-06-02 04:45] LABS: BASO % 1 % (0-3); EOS # 0.2 x10^3/uL (0.0-0.7); EOS % 3 % (0-3); HEMATOCRIT 30.9 % (36.0-47.0); HEMOGLOBIN 9.8 g/dL (12.0-15.5); LYMPH # 2.1 x10^3/uL (1.0-4.8); LYMPH % 35 % (24-48); MEAN CORPUSCULAR HEMOGLOBIN 26 pg (25-35); MEAN CORPUSCULAR HGB CONC 32 g/dL (31-37); MEAN CORPUSCULAR VOLUME 80 fL (79-100); MONO # 0.7 x10^3/uL (0.0-1.1); MONO % 12 % (0-9); NEUT # 3.1 x10^3uL (1.8-7.7); NEUT % 50 % (31-73); PLATELET COUNT 523 x10^3/uL (140-400); RED BLOOD COUNT 3.85 x10^6/uL (3.50-5.40); RED CELL DISTRIBUTION WIDTH 16.7 % (11.5-14.5); WHITE BLOOD COUNT 6.2 x10^3/uL (4.0-11.0)
[2017-06-02 05:17] LABS: ALBUMIN 3.8 g/dL (3.4-5.0); ALBUMIN/GLOBULIN RATIO 1.1 (1.0-1.7); ALK PHOS 336 U/L (46-116); ALT (SGPT) 18 U/L (14-59); ANION GAP 9 (6-14); AST (SGOT) 12 U/L (15-37); BLOOD UREA NITROGEN 12 mg/dL (7-20); BUN/CREATININE RATIO 11 (6-20); CALCIUM 9.4 mg/dL (8.5-10.1); CARBON DIOXIDE 25 mmol/L (21-32); CHLORIDE 104 mmol/L (98-107); CREATININE 1.1 mg/dL (0.6-1.0); GFR 59.4; GLUCOSE 117 mg/dL (70-99); POTASSIUM 4.2 mmol/L (3.5-5.1); SODIUM 138 mmol/L (136-145); TOTAL BILIRUBIN 0.2 mg/dL (0.2-1.0); TOTAL PROTEIN 7.4 g/dL (6.4-8.2)
[2017-06-02] MEDS: PANTOPRAZOLE 40 MG TABLET.DR. PO (08:09)
[2017-06-02] MEDS: CYCLOBENZAPRINE 10 MG TABLET. PO ×2 (08:55→13:44)
[2017-06-02] MEDS: LISINOPRIL 10 MG TABLET PO (08:55)
[2017-06-02] MEDS: amLODIPine BESYLATE 5 MG TABLET PO (08:55)
== END 2017-06-02 15:47 | disposition home or self-care (01) | DRG 384 ==
LOC: ER 16:32 → 6 SOUTH 20:43
PROC: 0DB68ZX Excision of Stomach, Via Natural or Artificial Opening Endoscopic, Diagnostic (ICD-10-PCS; principal; 2017-06-01 10:30)
DX: K25.9 Gastric ulcer, unspecified as acute or chronic, without hemorrhage or perforation (principal); D50.9 Iron deficiency anemia, unspecified; G89.29 Other chronic pain; I10 Essential (primary) hypertension; I25.10 Atherosclerotic heart disease of native coronary artery without angina pectoris; K44.9 Diaphragmatic hernia without obstruction or gangrene; K29.70 Gastritis, unspecified, without bleeding; N20.0 Calculus of kidney; Z80.0 Family history of malignant neoplasm of digestive organs; Z87.11 Personal history of peptic ulcer disease; Z95.5 Presence of coronary angioplasty implant and graft; Z90.49 Acquired absence of other specified parts of digestive tract; Z98.1 Arthrodesis status; Z88.4 Allergy status to anesthetic agent; Z88.1 Allergy status to other antibiotic agents; Z88.5 Allergy status to narcotic agent; Z88.8 Allergy status to other drugs, medicaments and biological substances
CPT/HCPCS: 36415; 76705; 80048; 80053; 80076; 80307; 81001; 82150; 82274; 82553; 82607; 82728; 82746; 83010; 83540; 83550; 83605; 83690; 83735; 83880; 84484; 85025; 85045; 85610; 88305; 88342; 93005; J2704; J7030; J7120

== ENCOUNTER 2017-06-14 14:27 | Inpatient (IN) | payer MEDICARE, OTHER ==
[2017-06-14] MEDS: ONDANSETRON PF 4 MG/2 ML VIAL. IV (16:03)
[2017-06-14] MEDS: IV NORMAL SALINE 500ML BAG 500 ML IV (16:03)
[2017-06-14] MEDS: fentaNYL PF VIAL 100 MCG/2 ML VIAL IV ×3 (16:04→22:12)
[2017-06-14 16:15] LABS: ADD MAN DIFF? NO
[2017-06-14 16:25] LABS: BASO % 0 % (0-3); EOS # 0.1 x10^3/uL (0.0-0.7); EOS % 1 % (0-3); HEMATOCRIT 33.6 % (36.0-47.0); HEMOGLOBIN 10.6 g/dL (12.0-15.5); LYMPH # 1.4 x10^3/uL (1.0-4.8); LYMPH % 20 % (24-48); MEAN CORPUSCULAR HEMOGLOBIN 26 pg (25-35); MEAN CORPUSCULAR HGB CONC 31 g/dL (31-37); MEAN CORPUSCULAR VOLUME 83 fL (79-100); MONO # 0.4 x10^3/uL (0.0-1.1); MONO % 6 % (0-9); NEUT % 72 % (31-73); PLATELET COUNT 444 x10^3/uL (140-400); RED BLOOD COUNT 4.05 x10^6/uL (3.50-5.40); RED CELL DISTRIBUTION WIDTH 20.5 % (11.5-14.5); WHITE BLOOD COUNT 6.9 x10^3/uL (4.0-11.0)
[2017-06-14 16:32] LABS: INR 1.1 (0.8-1.1); PARTIAL THROMBOPLASTIN TIME 31 SEC (24-38); PROTHROMBIN TIME PATIENT 13.4 SEC (11.7-14.0)
[2017-06-14 16:35] LABS: ANION GAP 10 (6-14); BLOOD UREA NITROGEN 10 mg/dL (7-20); BUN/CREATININE RATIO 10 (6-20); CALCIUM 9.5 mg/dL (8.5-10.1); CARBON DIOXIDE 24 mmol/L (21-32); CHLORIDE 107 mmol/L (98-107); GFR 66.3; GLUCOSE 98 mg/dL (70-99); POTASSIUM 4.5 mmol/L (3.5-5.1); SODIUM 141 mmol/L (136-145)
[2017-06-14 16:41] LABS: ALBUMIN 4.2 g/dL (3.4-5.0); ALBUMIN/GLOBULIN RATIO 1.3 (1.0-1.7); ALK PHOS 375 U/L (46-116); ALT (SGPT) 21 U/L (14-59); AST (SGOT) 13 U/L (15-37); LIPASE 128 U/L (73-393); TOTAL BILIRUBIN 0.4 mg/dL (0.2-1.0); TOTAL PROTEIN 7.5 g/dL (6.4-8.2)
[2017-06-14 16:45] LABS: TROPONINI < 0.017 ng/mL (0.000-0.055)
[2017-06-14 16:48] LABS: LACTIC ACID 2.5 mmol/L (0.4-2.0); NT-PRO BNP 170 pg/mL (0-124)
[2017-06-14 16:57] LABS: PLT ESTIMATE INCREASED (ADEQUATE)
[2017-06-14 16:58] LABS: ANISOCYTOSIS MOD; POIKILOCYTOSIS SLIGHT
[2017-06-14] MEDS ORDERED: ACETAMINOPHEN 325 MG TABLET. PO (17:45)
[2017-06-14] MEDS ORDERED: ONDANSETRON PF 4 MG/2 ML VIAL. IV (17:45)
[2017-06-14] MEDS: IOHEXOL 300 MG/ML 100ML VIAL. IV (17:59)
[2017-06-14] MEDS ORDERED: CONTRAST GIVEN MC (18:00)
[2017-06-14 18:12] LABS: BILIRUBIN,URINE NEGATIVE (NEG); CLARITY,URINE CLEAR; COLOR,URINE YELLOW; GLUCOSE,URINE NEGATIVE (NEG); NITRITE,URINE NEGATIVE (NEG); PH,URINE 6.5; PROTEIN,URINE NEGATIVE (NEG-TRACE); UROBILINOGEN,URINE 0.2 mg/dL (0.2 mg/dL)
[2017-06-14 18:29] LABS: BACTERIA,URINE 0 /HPF (0-FEW); RBC,URINE 0 /HPF (0-2); WBC,URINE 0 /HPF (0-4)
[2017-06-14 18:30] LABS: SQUAMOUS EPITHELIAL CELL,UR FEW /LPF
[2017-06-14] MEDS: IV NORMAL SALINE 1000ML BAG 1,000 ML IV (20:06)
[2017-06-14] MEDS ORDERED: C.DIFF MED SCREEN BY RX. MC (23:00)
[2017-06-15] MEDS: fentaNYL PF VIAL 100 MCG/2 ML VIAL IV ×3 (02:08→08:23)
[2017-06-15 05:28] LABS: ADD MAN DIFF? NO
[2017-06-15 05:30] LABS: BASO % 1 % (0-3); EOS # 0.2 x10^3/uL (0.0-0.7); EOS % 3 % (0-3); HEMOGLOBIN 10.2 g/dL (12.0-15.5); LYMPH # 1.9 x10^3/uL (1.0-4.8); LYMPH % 31 % (24-48); MEAN CORPUSCULAR HEMOGLOBIN 26 pg (25-35); MEAN CORPUSCULAR HGB CONC 31 g/dL (31-37); MEAN CORPUSCULAR VOLUME 83 fL (79-100); MONO # 0.5 x10^3/uL (0.0-1.1); MONO % 9 % (0-9); NEUT # 3.4 x10^3uL (1.8-7.7); NEUT % 57 % (31-73); PLATELET COUNT 398 x10^3/uL (140-400); RED BLOOD COUNT 3.96 x10^6/uL (3.50-5.40); RED CELL DISTRIBUTION WIDTH 21.2 % (11.5-14.5)
[2017-06-15] MEDS: IV NORMAL SALINE 1000ML BAG 1,000 ML IV ×2 (05:57→14:12)
[2017-06-15 06:05] LABS: ANION GAP 10 (6-14); BLOOD UREA NITROGEN 10 mg/dL (7-20); CALCIUM 9.2 mg/dL (8.5-10.1); CARBON DIOXIDE 23 mmol/L (21-32); CHLORIDE 110 mmol/L (98-107); GFR 66.3; GLUCOSE 92 mg/dL (70-99); SODIUM 143 mmol/L (136-145)
[2017-06-15] MEDS ORDERED: ALBUTEROL SULFATE 2.5 MG/3 ML NEBU. NEB (09:00)
[2017-06-15] MEDS ORDERED: fentaNYL PF VIAL 100 MCG/2 ML VIAL IV (09:00)
[2017-06-15] MEDS ORDERED: ALBUTEROL SULFATE 8GM INHALER. INH (09:00)
[2017-06-15] MEDS: PREGABALIN 75 MG CAPSULE PO ×2 (09:00→21:21)
[2017-06-15] MEDS: PANTOPRAZOLE 40 MG TABLET.DR. PO ×3 (10:05→16:46)
[2017-06-15] MEDS: FERROUS SULFATE 325 MG TABLET. PO (10:05)
[2017-06-15] MEDS: CYCLOBENZAPRINE 10 MG TABLET. PO ×3 (10:07→21:21)
[2017-06-15] MEDS: traMADol 50 MG TABLET PO (10:07)
[2017-06-15] MEDS: ATENOLOL 50 MG TABLET. PO (10:08)
[2017-06-15] MEDS: LISINOPRIL 10 MG TABLET PO (10:08)
[2017-06-15] MEDS ORDERED: DICYCLOMINE HCL 10 MG CAPSULE PO (10:30)
[2017-06-15] MEDS: SUCRALFATE 1 GM TABLET. PO ×3 (12:09→21:21)
[2017-06-15] MEDS ORDERED: diphenhydrAMINE HCL 25 MG CAPSULE PO (19:00)
[2017-06-15] MEDS: diphenhydrAMINE HCL 25 MG CAPSULE PO (21:21)
[2017-06-16] MEDS: traMADol 50 MG TABLET PO (04:37)
[2017-06-16] MEDS: FERROUS SULFATE 325 MG TABLET. PO (08:03)
[2017-06-16] MEDS: CYCLOBENZAPRINE 10 MG TABLET. PO (08:03)
[2017-06-16] MEDS: PANTOPRAZOLE 40 MG TABLET.DR. PO (08:03)
[2017-06-16] MEDS: SUCRALFATE 1 GM TABLET. PO ×2 (08:03→11:30)
[2017-06-16] MEDS: LISINOPRIL 10 MG TABLET PO (08:04)
[2017-06-16] MEDS: ATENOLOL 50 MG TABLET. PO (08:04)
[2017-06-16] MEDS: PREGABALIN 75 MG CAPSULE PO (08:04)
[2017-06-16 18:18] LABS: C DIFF BY PCR Negative (Negative)
== END 2017-06-16 12:15 | disposition home or self-care (01) | DRG 384 ==
LOC: ER 14:27 → ED HOLD 17:14 → 5 NORTH 21:16
DX: K25.9 Gastric ulcer, unspecified as acute or chronic, without hemorrhage or perforation (principal); E87.2 Acidosis; D64.9 Anemia, unspecified; K76.0 Fatty (change of) liver, not elsewhere classified; G89.29 Other chronic pain; I10 Essential (primary) hypertension; I25.10 Atherosclerotic heart disease of native coronary artery without angina pectoris; K44.9 Diaphragmatic hernia without obstruction or gangrene; K57.30 Diverticulosis of large intestine without perforation or abscess without bleeding; M88.9 Osteitis deformans of unspecified bone; N20.0 Calculus of kidney; Z87.11 Personal history of peptic ulcer disease; Z90.49 Acquired absence of other specified parts of digestive tract; Z95.5 Presence of coronary angioplasty implant and graft; Z98.1 Arthrodesis status; Z88.6 Allergy status to analgesic agent; Z88.1 Allergy status to other antibiotic agents; Z88.8 Allergy status to other drugs, medicaments and biological substances
CPT/HCPCS: 36415; 74174; 74176; 80048; 80053; 81001; 83605; 83690; 83880; 84484; 85025; 85610; 85730; 87324; 93005; 96374; 97161-GP; 97165-GO; 99285; 99285-25; J2405; J3010; J7030; J7040; Q0163; Q9967

== ENCOUNTER 2017-07-20 13:32 | Emergency (ER) | payer MEDICARE, OTHER ==
[2017-07-20 14:19] LABS: ANION GAP 10 (6-14); BLOOD UREA NITROGEN 21 mg/dL (7-20); BUN/CREATININE RATIO 18 (6-20); CALCIUM 8.4 mg/dL (8.5-10.1); CARBON DIOXIDE 25 mmol/L (21-32); CHLORIDE 108 mmol/L (98-107); CREATININE 1.2 mg/dL (0.6-1.0); GFR 53.7; GLUCOSE 128 mg/dL (70-99); POTASSIUM 3.8 mmol/L (3.5-5.1); SODIUM 143 mmol/L (136-145)
[2017-07-20 14:25] LABS: ALBUMIN 3.9 g/dL (3.4-5.0); ALBUMIN/GLOBULIN RATIO 1.2 (1.0-1.7); ALK PHOS 264 U/L (46-116); ALT (SGPT) 33 U/L (14-59); AST (SGOT) 18 U/L (15-37); TOTAL BILIRUBIN 0.2 mg/dL (0.2-1.0); TOTAL PROTEIN 7.1 g/dL (6.4-8.2)
[2017-07-20 14:31] LABS: NT-PRO BNP 581 pg/mL (0-124)
[2017-07-20 14:32] LABS: BASO % 0 % (0-3); EOS % 0 % (0-3); HEMATOCRIT 33.6 % (36.0-47.0); HEMOGLOBIN 10.7 g/dL (12.0-15.5); LYMPH # 0.9 x10^3/uL (1.0-4.8); LYMPH % 9 % (24-48); MEAN CORPUSCULAR HEMOGLOBIN 27 pg (25-35); MEAN CORPUSCULAR HGB CONC 32 g/dL (31-37); MEAN CORPUSCULAR VOLUME 84 fL (79-100); MONO # 0.4 x10^3/uL (0.0-1.1); MONO % 3 % (0-9); NEUT # 9.6 x10^3uL (1.8-7.7); NEUT % 88 % (31-73); PLATELET COUNT 409 x10^3/uL (140-400); RED CELL DISTRIBUTION WIDTH 22.5 % (11.5-14.5); WHITE BLOOD COUNT 10.9 x10^3/uL (4.0-11.0)
[2017-07-20 14:34] LABS: ADD MAN DIFF? YES
[2017-07-20 16:06] LABS: % BANDS 1 % (0-9); % LYMPHS 13 % (24-48); % MONOS 3 % (0-10); % SEGS 83 % (35-66)
[2017-07-20 16:08] LABS: ANISOCYTOSIS MOD; PLT ESTIMATE ADEQUATE (ADEQUATE); POLYCHROMASIA SLIGHT
== END 2017-07-20 15:49 | disposition home or self-care (01) ==
LOC: ER 13:32
DX: R06.00 Dyspnea, unspecified (principal); I10 Essential (primary) hypertension; I25.10 Atherosclerotic heart disease of native coronary artery without angina pectoris; Z87.11 Personal history of peptic ulcer disease; Z88.6 Allergy status to analgesic agent; Z88.5 Allergy status to narcotic agent; Z88.8 Allergy status to other drugs, medicaments and biological substances
CPT/HCPCS: 36415; 71045; 80053; 83880; 85007; 85025; 93005; 99285-25

== ENCOUNTER 2017-08-21 17:05 | Emergency (ER) | payer MEDICARE, OTHER ==
[2017-08-21] MEDS: HYDROcodone/APAP 5/325MG 1 TAB TABLET PO (17:39)
== END 2017-08-21 18:04 | disposition home or self-care (01) ==
LOC: ER 17:05
DX: M54.32 Sciatica, left side (principal); I10 Essential (primary) hypertension; Z87.11 Personal history of peptic ulcer disease; Z88.5 Allergy status to narcotic agent; Z88.6 Allergy status to analgesic agent; Z88.8 Allergy status to other drugs, medicaments and biological substances
CPT/HCPCS: 99283

== ENCOUNTER → 2017-09-11 | Outpatient (CLI) | payer MEDICARE, OTHER | END | disposition home or self-care (01) | LOC: RAD 10:14 | DX: M51.37 Other intervertebral disc degeneration, lumbosacral region (principal); M43.16 Spondylolisthesis, lumbar region; M12.88 Other specific arthropathies, not elsewhere classified, other specified site | CPT/HCPCS: 72110 ==

== ENCOUNTER 2017-09-24 06:41 | Emergency (ER) | payer MEDICARE, OTHER ==
[2017-09-24] MEDS: HYDROcodone/APAP 5/325MG 1 TAB TABLET PO (07:18)
== END 2017-09-24 09:57 | disposition home or self-care (01) ==
LOC: ER 06:41
DX: S32.029A Unspecified fracture of second lumbar vertebra, initial encounter for closed fracture (principal); M48.061 Spinal stenosis, lumbar region without neurogenic claudication; M54.32 Sciatica, left side; I10 Essential (primary) hypertension; Z86.718 Personal history of other venous thrombosis and embolism; I25.10 Atherosclerotic heart disease of native coronary artery without angina pectoris; Z90.49 Acquired absence of other specified parts of digestive tract; Z88.6 Allergy status to analgesic agent; Z88.5 Allergy status to narcotic agent; Z88.8 Allergy status to other drugs, medicaments and biological substances; W10.8XXA Fall (on) (from) other stairs and steps, initial encounter; Y93.89 Activity, other specified; Y99.8 Other external cause status; Y92.89 Other specified places as the place of occurrence of the external cause
CPT/HCPCS: 72131; 93971; 99284-25

== ENCOUNTER 2017-10-18 19:03 | Emergency (ER) | payer MEDICARE, OTHER ==
[2017-10-18] MEDS: fentaNYL PF VIAL 100 MCG/2 ML VIAL IV (19:53)
[2017-10-18 19:56] LABS: ADD MAN DIFF? NO
[2017-10-18 20:06] LABS: ANION GAP 12 (6-14); BLOOD UREA NITROGEN 12 mg/dL (7-20); BUN/CREATININE RATIO 11 (6-20); CALCIUM 9.3 mg/dL (8.5-10.1); CARBON DIOXIDE 25 mmol/L (21-32); CHLORIDE 104 mmol/L (98-107); CREATININE 1.1 mg/dL (0.6-1.0); GFR 59.2; GLUCOSE 105 mg/dL (70-99); POTASSIUM 3.6 mmol/L (3.5-5.1); SODIUM 141 mmol/L (136-145)
[2017-10-18 20:12] LABS: ALBUMIN 4.1 g/dL (3.4-5.0); ALBUMIN/GLOBULIN RATIO 1.2 (1.0-1.7); ALK PHOS 320 U/L (46-116); ALT (SGPT) 19 U/L (14-59); AST (SGOT) 15 U/L (15-37); MAGNESIUM 2.3 mg/dL (1.8-2.4); TOTAL BILIRUBIN 0.3 mg/dL (0.2-1.0); TOTAL PROTEIN 7.6 g/dL (6.4-8.2)
[2017-10-18 20:13] LABS: BASO # 0.1 x10^3/uL (0.0-0.2); BASO % 1 % (0-3); EOS # 0.1 x10^3/uL (0.0-0.7); EOS % 2 % (0-3); HEMATOCRIT 29.7 % (36.0-47.0); HEMOGLOBIN 9.5 g/dL (12.0-15.5); LYMPH # 1.5 x10^3/uL (1.0-4.8); LYMPH % 27 % (24-48); MEAN CORPUSCULAR HEMOGLOBIN 25 pg (25-35); MEAN CORPUSCULAR HGB CONC 32 g/dL (31-37); MEAN CORPUSCULAR VOLUME 77 fL (79-100); MONO # 0.5 x10^3/uL (0.0-1.1); MONO % 8 % (0-9); NEUT # 3.6 x10^3uL (1.8-7.7); NEUT % 63 % (31-73); PLATELET COUNT 539 x10^3/uL (140-400); RED BLOOD COUNT 3.88 x10^6/uL (3.50-5.40); RED CELL DISTRIBUTION WIDTH 18.1 % (11.5-14.5); WHITE BLOOD COUNT 5.8 x10^3/uL (4.0-11.0)
== END 2017-10-18 21:50 | disposition home or self-care (01) ==
LOC: ER 19:03
DX: M79.605 Pain in left leg (principal); R22.42 Localized swelling, mass and lump, left lower limb; I10 Essential (primary) hypertension; I48.91 Unspecified atrial fibrillation; I25.10 Atherosclerotic heart disease of native coronary artery without angina pectoris; Z86.718 Personal history of other venous thrombosis and embolism; Z88.5 Allergy status to narcotic agent; Z88.6 Allergy status to analgesic agent; Z88.8 Allergy status to other drugs, medicaments and biological substances
CPT/HCPCS: 36415; 80053; 83735; 85025; 93971; 96374; 99285-25; J3010

== ENCOUNTER 2017-10-26 18:55 | Emergency (ER) | payer MEDICARE, OTHER ==
[~2017-10-26] VITALS: Ht 162.6 cm; Wt 85.3 kg
[~2017-10-26 18:55] MED LIST changes: +ALBU8.5H8 INH; +AMOX500C PO; +ATEN100T PO; +CYCL5TAB PO; +DICY10CA3 PO; +DOCU-109 PO; -FERR-26 PO; +FERR325T14 PO; +HYDR-971 PO; +OXYC1TAB7 PO; +PANT20TA2 PO; +PREG75CA PO; +RANI150T2 PO; +SUCR1TAB35 PO
[2017-10-26] MEDS ORDERED: ONDANSETRON PF 4 MG/2 ML VIAL. IV ONE (19:45)
--- NOTE | 2017-10-26 19:54 | PHYS DOC ---
Past Medical History Past Medical History: A-Fib, CAD, DVT, Hypertension, P.U.D. Additional Past Medical Histor: PEPTIC ULCER, BACK PROBLEMS Past Surgical History: Appendectomy, Cholecystectomy Additional Past Surgical Histo: LEFT GREAT TOE CORRECTION Alcohol Use: None Drug Use: None Adult General Chief Complaint Chief Complaint: ABDOMINAL PAIN [facility] HPI Patient is a 72 year old female who presents with epigastric pain times off and on but worse today. Patient states she called her primary care Dr. Segura and he stated to take an extra proton accident 30 minutes if the pain was not better to go to the ED. Patient states that she has not seen any blood in her bowel and she has not been vomiting. Patient states that she has nausea without. Patient states that she does not have chest pain or shortness of air. Patient is currently on medications for her gastric ulcers pushes Carafate, ranitidine, Mylanta, Protonix. Patient is also on iron pills and states that her bowels have some black and green color to it. Patient states today her bowels were little bit looser only because she took Mylanta and every time she takes Mylanta and makes her bowels loose. Denies any fevers. Review of Systems Review of Systems Constitutional: Denies fever or chills [] Eyes: Denies change in visual acuity, redness, or eye pain [] HENT: Denies nasal congestion or sore throat [] Respiratory: Denies cough or shortness of breath [] Cardiovascular: No additional information not addressed in HPI [] GI: Denies abdominal pain, nausea, vomiting, bloody stools or diarrhea [] : Denies dysuria or hematuria [] Musculoskeletal: Denies back pain or joint pain [] Integument: Denies rash or skin lesions [] Neurologic: Denies headache, focal weakness or sensory changes [] Endocrine: Denies polyuria or polydipsia [] All other systems were reviewed and found to be within normal limits, except as documented in this note. Current Medications Current Medications Current Medications Medications (Trade) Dose Ordered Sig/Danilo Start Time Stop Time Status Last Admin Dose Admin Fentanyl Citrate (Fentanyl 2ml Vial) 50 mcg 1X ONCE 10/26/17 21:15 10/26/17 21:16 DC 10/26/17 21:39 50 MCG Multi-Ingredient Mouthwash/Gargle (Gi Cocktail) 20 ml 1X ONCE 10/26/17 20:00 10/26/17 20:01 DC 10/26/17 20:15 20 ML Ondansetron HCl (Zofran) 4 mg 1X ONCE 10/26/17 19:45 10/26/17 19:47 DC 10/26/17 20:15 4 MG Allergies Allergies Allergies Coded Allergies Type Severity Reaction Last Updated Verified aspirin Allergy Intermediate 07/11/16 Yes codeine Allergy Intermediate 07/11/16 Yes diazepam Allergy Intermediate 07/11/16 Yes ibuprofen Allergy Intermediate 07/11/16 Yes ketorolac Allergy Intermediate Shortness of Air 10/18/17 Yes morphine Allergy Intermediate takes ULTRAM at home 10/23/16 Yes promethazine Allergy Intermediate 07/11/16 Yes Uncoded Allergies Type Severity Reaction Last Updated Verified IM SHOTS Allergy Unknown 07/21/13 Physical Exam Physical Exam Constitutional: Well developed, well nourished, no acute distress, non-toxic appearance. [] HENT: Normocephalic, atraumatic, bilateral external ears normal, oropharynx moist, no oral exudates, nose normal. [] Eyes: PERRLA, EOMI, conjunctiva normal, no discharge. [] Neck: Normal range of motion, no tenderness, supple, no stridor. [] Cardiovascular:Heart rate regular rhythm, no murmur [] Lungs & Thorax: Bilateral breath sounds clear to auscultation [] Abdomen: Bowel sounds normal, soft, no tenderness, no masses, no pulsatile masses. [] Skin: Warm, dry, no erythema, no rash. [] Back: No tenderness, no CVA tenderness. [] Extremities: No tenderness, no cyanosis, no clubbing, ROM intact, no edema. [] Neurologic: Alert and oriented X 3, normal motor function, normal sensory function, no focal deficits noted. [] Psychologic: Affect normal, judgement normal, mood normal. [] Current Patient Data Vital Signs Vital Signs Date Time Temp Pulse Resp B/P (MAP) Pulse Ox O2 Delivery O2 Flow Rate FiO2 10/26/17 21:39 18 100 Room Air 10/26/17 19:25 99.5 99 191/89 (123) 99.5 Lab Values Laboratory Tests Test 10/26/17 20:08 10/26/17 21:14 White Blood Count 6.8 x10^3/uL (4.0-11.0) Red Blood Count 3.96 x10^6/uL (3.50-5.40) Hemoglobin 9.7 g/dL (12.0-15.5) L Hematocrit 30.0 % (36.0-47.0) L Mean Corpuscular Volume 76 fL (79-100) L Mean Corpuscular Hemoglobin 25 pg (25-35) Mean Corpuscular Hemoglobin Concent 32 g/dL (31-37) Red Cell Distribution Width 18.8 % (11.5-14.5) H Platelet Count 506 x10^3/uL (140-400) H Neutrophils (%) (Auto) 57 % (31-73) Lymphocytes (%) (Auto) 30 % (24-48) Monocytes (%) (Auto) 10 % (0-9) H Eosinophils (%) (Auto) 3 % (0-3) Basophils (%) (Auto) 1 % (0-3) Neutrophils # (Auto) 3.9 x10^3uL (1.8-7.7) Lymphocytes # (Auto) 2.0 x10^3/uL (1.0-4.8) Monocytes # (Auto) 0.6 x10^3/uL (0.0-1.1) Eosinophils # (Auto) 0.2 x10^3/uL (0.0-0.7) Basophils # (Auto) 0.1 x10^3/uL (0.0-0.2) Prothrombin Time 13.1 SEC (11.7-14.0) Prothrombin Time INR 1.0 (0.8-1.1) PTT 28 SEC (24-38) Sodium Level 138 mmol/L (136-145) Potassium Level 3.9 mmol/L (3.5-5.1) Chloride Level 104 mmol/L (98-107) Carbon Dioxide Level 23 mmol/L (21-32) Anion Gap 11 (6-14) Blood Urea Nitrogen 15 mg/dL (7-20) Creatinine 1.0 mg/dL (0.6-1.0) Estimated GFR (Cockcroft-Gault) 66.1 BUN/Creatinine Ratio 15 (6-20) Glucose Level 111 mg/dL (70-99) H Calcium Level 9.5 mg/dL (8.5-10.1) Total Bilirubin 0.2 mg/dL (0.2-1.0) Aspartate Amino Transferase (AST) 11 U/L (15-37) L Alanine Aminotransferase (ALT) 19 U/L (14-59) Alkaline Phosphatase 302 U/L (46-116) H Creatine Kinase 86 U/L (26-192) Troponin I Quantitative < 0.017 ng/mL (0.000-0.055) Total Protein 7.1 g/dL (6.4-8.2) Albumin 4.2 g/dL (3.4-5.0) Albumin/Globulin Ratio 1.4 (1.0-1.7) Lipase 178 U/L (73-393) Urine Collection Type Unknown Urine Color Yellow Urine Clarity Clear Urine pH 5.5 Urine Specific [place] 1.015 Urine Protein Negative mg/dL (NEG-TRACE) Urine Glucose (UA) Negative mg/dL (NEG) Urine Ketones (Stick) Negative mg/dL (NEG) Urine Blood Small (NEG) Urine Nitrite Negative (NEG) Urine Bilirubin Negative (NEG) Urine Urobilinogen Dipstick 0.2 mg/dL (0.2 mg/dL) Urine Leukocyte Esterase Moderate (NEG) Urine RBC 6-10 /HPF (0-2) Urine WBC 1-4 /HPF (0-4) Urine Squamous Epithelial Cells Mod /LPF Urine Renal Epithelial Cells Few /LPF Urine Bacteria 0 /HPF (0-FEW) Urine Mucus Mod /LPF Urine Opiates Screen Pos (NEG) Urine Methadone Screen Neg (NEG) Urine Barbiturates Neg (NEG) Urine Phencyclidine Screen Neg (NEG) Urine Amphetamine/Methamphetamine Neg (NEG) Urine Benzodiazepines Screen Neg (NEG) Urine Cocaine Screen Neg (NEG) Urine Cannabinoids Screen Neg (NEG) Urine Ethyl Alcohol Neg (NEG) Laboratory Tests 10/26/17 20:08 Laboratory Tests 10/26/17 20:08 EKG EKG Sinus rhythm, no STEMI.[] Interpretation Time: Read by Dr. Jean at 1930 Radiology/Procedures Radiology/Procedures Chest x ray, CT abdomen and pelvis wo contrast[] Impressions: [facility] [address] [place], [place] [id number] IMAGING REPORT Signed PATIENT: DANIELA PANG ACCOUNT: [id number] : 1945 LOCATION: ER AGE: 72 SEX: F EXAM STATUS: REG ER ORD. PHYSICIAN: JADE BERMAN APRN REASON: abdominal pain PROCEDURE: CT ABDOMEN PELVIS WO CONTRAST CT scan abdomen and pelvis without contrast 10/26/2017 CLINICAL HISTORY: Epigastric pain with nausea and vomiting. TECHNIQUE: Unenhanced, contiguous, 2 mm axial sections were obtained through the abdomen and pelvis. One or more of the following individualized dose reduction techniques were utilized for this study: 1. Automated exposure control. 2. Adjustment of the mA and/or kV according to patient size. 3. Use of iterative reconstruction technique. FINDINGS: Comparison study is dated 06/14/2017. Images through the lung bases demonstrate linear bands of subsegmental atelectasis involving left lower lobe. There is a large hiatal hernia. The liver, spleen, pancreas, and adrenal glands are within normal limits. A 2 cm rounded low-attenuation lesion is seen involving lower pole of the right kidney. This likely represents a cyst. A 4 mm nonobstructing calculus is seen involving the lower pole left kidney. Atherosclerotic calcification abdominal aorta is seen. The abdominal aorta tapers normally. The gallbladder is not visualized consistent with a cholecystectomy. No free fluid or free air is seen within the abdomen. There is no evidence of bowel obstruction. Air and stool is seen throughout the colon. Images through the pelvis demonstrate the urinary bladder distended with urine. No adnexal mass is seen. Calcifications are seen within the pelvis consistent with phleboliths. No free fluid is noted. The osseous structures are unchanged. IMPRESSION: No acute abnormality is seen. Electronically signed by: Dante Coronado MD (10/26/2017 8:45 PM) [facility] DICTATED and SIGNED BY: DANTE CORONADO MD DATE: 10/26/172040 Chest x ray with no acute findings. Read by Dr. Jean. Course & Med Decision Making Course & Med Decision Making Upon examination the patient has left and right epigastric abdominal tenderness. Patient states that the pain that she feels in her epigastric area is a burning pain just like her ulcers feel. Patient's abdomen is soft. Patient states she does not have chest pain or shortness of air or tingling or numbness. And is neurologically intact Patient states that she has not seen any blood in her bowel and she has not been vomiting. Patient states that she has nausea without. Patient states that she does not have chest pain or shortness of air. Patient is currently on medications for her gastric ulcers pushes Carafate, ranitidine, Mylanta, Protonix. Patient is also on iron pills and states that her bowels have some black and green color to it. Patient states today her bowels were little bit looser only because she took Mylanta and every time she takes Mylanta and makes her bowels loose. Denies any fevers. Lungs are clear to auscultation. Patient's temperature today is 99 5. Patient's pain is an 8 out of 10. Patient's skin is pink, warm, dry. Patients EKG is sinus rhythm without STEMI. Patient is stable and in no respiratory distress. Patient is given Zofran and a GI cocktail in the ED. Patient's chest x-ray is read by Dr. Jean shows no acute findings. Patient's CT of her abdomen showed no acute findings. CT does show a large hiatal hernia. Upon reevaluation the patient patient states that her pain is not any better. Patient is sitting up in the room holding her abdomen patient. Patient is given a Fentanyl IVP and states she is feeling much better. Patient denies any pain at this time. Patient is told that she needs to follow up with her primary care physician and her GI doctor. Patient is stable with her at bedside. Patient to be discharged home. I have reviewed this patient with Dr Jean and he agrees to this Discharge plan. [] Dragon Disclaimer Dragon Disclaimer This electronic medical record was generated, in whole or in part, using a voice recognition dictation system. Departure Departure Impression: Primary Impression: Abdominal pain Disposition: HOME, SELF-CARE Condition: STABLE Referrals: LYDIA SEGURA MD (PCP) Patient Instructions: Abdominal Pain Additional Instructions: Follow up with your primary care physician and gastrointestinal doctor. Take medications as prescribed. Scripts Tramadol Hcl (TRAMADOL HCL) 50 Mg Tablet 50 MG PO Q6HRS PRN for PAIN, #5 TAB Prov: JADE BERMAN BULB SORTER 10/26/17 Problem Qualifiers Primary Impression: Abdominal pain Abdominal location: generalized Qualified Codes: R10.84 - Generalized abdominal pain JADE BERMAN BULB SORTER Oct 26, 2017 19:54
[2017-10-26] MEDS ORDERED: LIDO:MAALOX 1:1 20 ML SINGLE DOSE. SWSW ONE (20:00)
[2017-10-26 20:16] LABS: BASO # 0.1 x10^3/uL (0.0-0.2); BASO % 1 % (0-3); EOS # 0.2 x10^3/uL (0.0-0.7); EOS % 3 % (0-3); HEMOGLOBIN 9.7 g/dL (12.0-15.5); LYMPH % 30 % (24-48); MEAN CORPUSCULAR HEMOGLOBIN 25 pg (25-35); MEAN CORPUSCULAR HGB CONC 32 g/dL (31-37); MEAN CORPUSCULAR VOLUME 76 fL (79-100); MONO # 0.6 x10^3/uL (0.0-1.1); MONO % 10 % (0-9); NEUT # 3.9 x10^3uL (1.8-7.7); NEUT % 57 % (31-73); PLATELET COUNT 506 x10^3/uL (140-400); RED BLOOD COUNT 3.96 x10^6/uL (3.50-5.40); RED CELL DISTRIBUTION WIDTH 18.8 % (11.5-14.5); WHITE BLOOD COUNT 6.8 x10^3/uL (4.0-11.0)
[2017-10-26 20:29] LABS: CALCIUM 9.5 mg/dL (8.5-10.1); GFR 66.1; POTASSIUM 3.9 mmol/L (3.5-5.1)
[2017-10-26 20:30] LABS: PROTHROMBIN TIME PATIENT 13.1 SEC (11.7-14.0)
[2017-10-26 20:37] LABS: ALBUMIN 4.2 g/dL (3.4-5.0); ALBUMIN/GLOBULIN RATIO 1.4 (1.0-1.7); TOTAL BILIRUBIN 0.2 mg/dL (0.2-1.0); TOTAL PROTEIN 7.1 g/dL (6.4-8.2)
--- NOTE | 2017-10-26 20:44 | EKG ---
[facility] [address] [place] [id number] Test Date: 2017-10-26 Test Time: 19:30:53 Pat Name: DANIELA PANG Department: Room: Gender: F [employer]: : 1945 Requested By: JADE BERMAN Order Number: [id number] Reading MD: Measurements Intervals [place] Rate: 93 P: 34 DE: 156 QRS: 19 QRSD: 86 T: 56 QT: 336 QTc: 420 Interpretive Statements SINUS RHYTHM LEFT ATRIAL ABNORMALITY QRS(T) CONTOUR ABNORMALITY CONSISTENT WITH ANTEROSEPTAL INFARCT AGE UNDETERMINED T ABNORMALITY IN HIGH LATERAL LEADS ABNORMAL ECG RI6.01 No previous ECG available for comparison
--- NOTE | 2017-10-26 20:49 | RAD ---
CT scan abdomen and pelvis without contrast 10/26/2017 CLINICAL HISTORY: Epigastric pain with nausea and vomiting. TECHNIQUE: Unenhanced, contiguous, 2 mm axial sections were obtained through the abdomen and pelvis. One or more of the following individualized dose reduction techniques were utilized for this study: 1. Automated exposure control. 2. Adjustment of the mA and/or kV according to patient size. 3. Use of iterative reconstruction technique. FINDINGS: Comparison study is dated 06/14/2017. Images through the lung bases demonstrate linear bands of subsegmental atelectasis involving left lower lobe. There is a large hiatal hernia. The liver, spleen, pancreas, and adrenal glands are within normal limits. A 2 cm rounded low-attenuation lesion is seen involving lower pole of the right kidney. This likely represents a cyst. A 4 mm nonobstructing calculus is seen involving the lower pole left kidney. Atherosclerotic calcification abdominal aorta is seen. The abdominal aorta tapers normally. The gallbladder is not visualized consistent with a cholecystectomy. No free fluid or free air is seen within the abdomen. There is no evidence of bowel obstruction. Air and stool is seen throughout the colon. Images through the pelvis demonstrate the urinary bladder distended with urine. No adnexal mass is seen. Calcifications are seen within the pelvis consistent with phleboliths. No free fluid is noted. The osseous structures are unchanged. IMPRESSION: No acute abnormality is seen. Electronically signed by: Dante Coronado MD (10/26/2017 8:45 PM) [facility]
[2017-10-26] MEDS ORDERED: TRAM50TA PO (21:14)
[2017-10-26] MEDS ORDERED: fentaNYL PF VIAL 100 MCG/2 ML VIAL IV ONE (21:15)
[2017-10-26 21:22] LABS: BILIRUBIN,URINE NEGATIVE (NEG); CLARITY,URINE CLEAR; COLOR,URINE YELLOW; NITRITE,URINE NEGATIVE (NEG); PH,URINE 5.5; PROTEIN,URINE NEGATIVE (NEG-TRACE); UROBILINOGEN,URINE 0.2 mg/dL (0.2 mg/dL)
[2017-10-26 21:29] LABS: BARBITURATES NEG (NEG); BENZODIAZEPINES NEG (NEG); CANNABINOIDS NEG (NEG); COCAINE NEG (NEG); METHADONE NEG (NEG); OPIATES POS (NEG); PHENCYCLIDINE NEG (NEG)
[2017-10-26 21:32] LABS: AMPHETAMINE/METHAMPHETAMINE NEG (NEG)
[2017-10-26 21:42] LABS: BACTERIA,URINE 0 /HPF (0-FEW); SQUAMOUS EPITHELIAL CELL,UR MOD /LPF
--- NOTE | 2017-10-26 21:54 | RAD ---
AP portable chest radiograph 10/26/2017 Clinical History: Epigastric pain for 3 days. An AP erect portable digital radiograph of the chest was obtained. Comparison study is dated 07/20/2017. The cardiac silhouette is mildly enlarged. There is a moderate sized hiatal hernia. The thoracic aorta is mildly tortuous. No acute pulmonary infiltrate is seen. No pleural effusion or pneumothorax is noted. The osseous structures are unchanged. Impression: No acute abnormality is seen. Electronically signed by: Dante Coronado MD (10/26/2017 9:50 PM) [facility]
[2017-10-26 22:40] VITALS: BP 158/87
== END 2017-10-26 22:43 | disposition home or self-care (01) ==
LOC: ER 18:55
DX: R10.84 Generalized abdominal pain (principal); R10.13 Epigastric pain; R11.0 Nausea; I48.91 Unspecified atrial fibrillation; I10 Essential (primary) hypertension; Z86.718 Personal history of other venous thrombosis and embolism; I25.10 Atherosclerotic heart disease of native coronary artery without angina pectoris; Z90.49 Acquired absence of other specified parts of digestive tract; Z90.89 Acquired absence of other organs; Z88.6 Allergy status to analgesic agent; Z88.5 Allergy status to narcotic agent; Z88.8 Allergy status to other drugs, medicaments and biological substances
CPT/HCPCS: 36415; 71045; 74176; 80053; 80307; 81001; 82550; 83690; 84484; 85025; 85610; 85730; 87086; 93005; 96374; 96375; 99285; J2405; J3010; G0479

== ENCOUNTER 2018-02-06 12:20 | Emergency (ER) | payer MEDICARE, OTHER ==
[~2018-02-06] VITALS: Ht 162.6 cm; Wt 78.0 kg
[~2018-02-06 12:20] MED LIST changes: -AMLO5TAB2 PO; +AMLO5TAB7 PO; +HYDR-3164 PO; -HYDR-971 PO
[2018-02-06 13:17] LABS: BASO % 1 % (0-3); BILIRUBIN,URINE NEGATIVE (NEG); CLARITY,URINE CLEAR; COLOR,URINE YELLOW; EOS # 0.1 x10^3/uL (0.0-0.7); EOS % 1 % (0-3); HEMATOCRIT 33.8 % (36.0-47.0); HEMOGLOBIN 11.1 g/dL (12.0-15.5); LYMPH # 1.1 x10^3/uL (1.0-4.8); LYMPH % 21 % (24-48); MEAN CORPUSCULAR HEMOGLOBIN 26 pg (25-35); MEAN CORPUSCULAR HGB CONC 33 g/dL (31-37); MEAN CORPUSCULAR VOLUME 79 fL (79-100); MONO # 0.4 x10^3/uL (0.0-1.1); MONO % 7 % (0-9); NEUT # 3.9 x10^3uL (1.8-7.7); NEUT % 71 % (31-73); NITRITE,URINE NEGATIVE (NEG); PH,URINE 6.5; PLATELET COUNT 387 x10^3/uL (140-400); PROTEIN,URINE NEGATIVE (NEG-TRACE); RED BLOOD COUNT 4.26 x10^6/uL (3.50-5.40); RED CELL DISTRIBUTION WIDTH 25.5 % (11.5-14.5); UROBILINOGEN,URINE 0.2 mg/dL (0.2 mg/dL); WHITE BLOOD COUNT 5.6 x10^3/uL (4.0-11.0)
[2018-02-06 13:22] LABS: BACTERIA,URINE 0 /HPF (0-FEW); RBC,URINE 0 /HPF (0-2); SQUAMOUS EPITHELIAL CELL,UR OCC /LPF; WBC,URINE OCC /HPF (0-4)
[2018-02-06 13:32] LABS: ANISOCYTOSIS MOD; PLT ESTIMATE ADEQUATE (ADEQUATE)
[2018-02-06 13:33] LABS: OVALOCYTES OCC
[2018-02-06] MEDS ORDERED: fentaNYL PF VIAL 100 MCG/2 ML VIAL IV ONE (14:00)
[2018-02-06] MEDS ORDERED: ONDANSETRON PF 4 MG/2 ML VIAL. IV ONE (14:00)
[2018-02-06 14:21] LABS: CALCIUM 9.3 mg/dL (8.5-10.1); CREATININE 0.9 mg/dL (0.6-1.0); GFR 74.7; POTASSIUM 3.6 mmol/L (3.5-5.1)
[2018-02-06 14:23] LABS: ALBUMIN 3.9 g/dL (3.4-5.0); ALBUMIN/GLOBULIN RATIO 1.1 (1.0-1.7); TOTAL BILIRUBIN 0.3 mg/dL (0.2-1.0); TOTAL PROTEIN 7.5 g/dL (6.4-8.2)
[2018-02-06] MEDS ORDERED: CONTRAST GIVEN. MC PRN (14:45)
[2018-02-06] MEDS ORDERED: IOHEXOL 300 MG/ML 100ML VIAL. IV ONE (14:45)
--- NOTE | 2018-02-06 15:57 | RAD ---
CT study of the abdomen and pelvis with contrast Clinical indications: Right lower quadrant pain. Diarrhea. TECHNIQUE: After IV infusion of 75 cc of Optiray 300, helical CT scanning of abdomen and pelvis was performed. No GI contrast was administered. This may decrease the sensitivity to detect GI tract pathology. PQRS compliance Statement One or more of the following individualized dose reduction techniques were utilized for this study: 1. Automated exposure control 2. Adjustment of the mA and/or kV according to patient size 3. Use of iterative reconstruction technique COMPARISON: October 26, 2017. FINDINGS: The liver and spleen and pancreas are unremarkable. The gallbladder is surgically absent. No progressive dilatation of the extra hepatic biliary tree is seen study. No adrenal mass is evident. There is a cyst of the lower pole of the right kidney. No hydronephrosis or hydroureter is evident. There is a nonobstructing punctate stone of the lower pole of the left kidney. No focal aneurysmal dilatation of the abdominal aorta is seen. No enlarged abdominal or pelvic lymphadenopathy is evident. No uterine mass or fibroid is seen. No dominant ovarian cyst or mass is evident. There is segmental wall thickening of the colon involving the transverse and descending and sigmoid portions. This may be seen with colitis. No obstructive bowel pattern is evident. There are no CT findings of appendicitis. No free air or free fluid or mesenteric edema is seen. No lung base consolidation is evident. There is trabecular thickening and expansion of T11 and L2 vertebral bodies which is unchanged from the previous study and this may be seen with Paget's disease given the expansion. No new lytic process is seen. No new compression fracture is evident. 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 Since the previous study, the patient has had L4-5 fusion. Grade 1 anterolisthesis at this level is stable. IMPRESSION: Segmental wall thickening of the colon which may be seen with colitis. Moderate-sized hiatal hernia. Nonobstructing punctate stone of the left kidney. Electronically signed by: Julio Cesar Velasquez MD (02/06/2018 3:54 PM) [place] [id number]
[2018-02-06] MEDS ORDERED: METR250T PO (16:31)
[2018-02-06] MEDS ORDERED: CIPR500T94 PO (16:31)
[2018-02-06 16:32] VITALS: BP 166/78
[2018-02-06] MEDS ORDERED: HYDR-2758 PO (16:32)
--- NOTE | 2018-02-06 16:33 | PHYS DOC ---
Past Medical History Past Medical History: A-Fib, CAD, DVT, GERD, Hypertension, P.U.D. Additional Past Medical Histor: PEPTIC ULCER, BACK PROBLEMS Past Surgical History: Appendectomy, Cholecystectomy Additional Past Surgical Histo: LEFT GREAT TOE CORRECTION Alcohol Use: None Drug Use: None Adult General Chief Complaint Chief Complaint: ABDOMINAL PAIN HPI HPI Patient is a 72 year old AA female who presents to the ER with complaints of RLQ abdominal pain and diarrhea today. She denies any fever, nausea, vomiting, back pain, or shortness of breath. She denies any food or liquid intolerance. Pt states that she has had both her appendix and her gallbladder removed. She denies any blood in her stool, dysuria, urinary frequency, or hematuria. Currently, she reports that her pain is an 8/10, she denies taking anything for pain relief prior to arrival. Review of Systems Review of Systems Constitutional: Denies fever or chills [] Eyes: Denies change in visual acuity, redness, or eye pain [] HENT: Denies nasal congestion or sore throat [] Respiratory: Denies cough or shortness of breath [] Cardiovascular: No additional information not addressed in HPI [] GI: Denies abdominal pain, nausea, vomiting, bloody stools or diarrhea [] : Denies dysuria or hematuria [] Musculoskeletal: Denies back pain or joint pain [] Integument: Denies rash or skin lesions [] Neurologic: Denies headache, focal weakness or sensory changes [] Endocrine: Denies polyuria or polydipsia [] All other systems were reviewed and found to be within normal limits, except as documented in this note. Current Medications Current Medications Current Medications Medications (Trade) Dose Ordered Sig/Danilo Start Time Stop Time Status Last Admin Dose Admin Fentanyl Citrate (Fentanyl 2ml Vial) 50 mcg 1X ONCE 02/06/18 14:00 02/06/18 14:01 DC 02/06/18 14:39 50 MCG Info (CONTRAST GIVEN -- Rx MONITORING) 1 each PRN DAILY PRN 02/06/18 14:45 02/08/18 14:44 Iohexol (Omnipaque 300 Mg/ml) 75 ml 1X ONCE 02/06/18 14:45 02/06/18 14:46 DC 02/06/18 14:49 75 ML Ondansetron HCl (Zofran) 4 mg 1X ONCE 02/06/18 14:00 02/06/18 14:01 DC 02/06/18 14:38 4 MG Allergies Allergies Allergies Coded Allergies Type Severity Reaction Last Updated Verified aspirin Allergy Intermediate 07/11/16 Yes codeine Allergy Intermediate 07/11/16 Yes diazepam Allergy Intermediate 07/11/16 Yes ibuprofen Allergy Intermediate 07/11/16 Yes ketorolac Allergy Intermediate Shortness of Air 10/18/17 Yes morphine Allergy Intermediate takes ULTRAM at home 10/23/16 Yes promethazine Allergy Intermediate 07/11/16 Yes Uncoded Allergies Type Severity Reaction Last Updated Verified IM SHOTS Allergy Unknown 07/21/13 Physical Exam Physical Exam Constitutional: Well developed, well nourished, no acute distress, non-toxic appearance. [] HENT: Normocephalic, atraumatic, bilateral external ears normal, oropharynx moist, no oral exudates, nose normal. [] Eyes: PERRLA, EOMI, conjunctiva normal, no discharge. [] Neck: Normal range of motion, no tenderness, supple, no stridor. [] Cardiovascular:Heart rate regular rhythm, no murmur [] Lungs & Thorax: Bilateral breath sounds clear to auscultation [] Abdomen: Bowel sounds normal, soft, no tenderness, no masses, no pulsatile masses. [] Skin: Warm, dry, no erythema, no rash. [] Back: No tenderness, no CVA tenderness. [] Extremities: No tenderness, no cyanosis, no clubbing, ROM intact, no edema. [] Neurologic: Alert and oriented X 3, normal motor function, normal sensory function, no focal deficits noted. [] Psychologic: Affect normal, judgement normal, mood normal. [] Current Patient Data Vital Signs Vital Signs Date Time Temp Pulse Resp B/P (MAP) Pulse Ox O2 Delivery O2 Flow Rate FiO2 02/06/18 14:39 18 99 Room Air 02/06/18 14:31 92 185/86 (119) 02/06/18 12:41 98.1 98.1 Lab Values Laboratory Tests Test 02/06/18 13:10 White Blood Count 5.6 x10^3/uL (4.0-11.0) Red Blood Count 4.26 x10^6/uL (3.50-5.40) Hemoglobin 11.1 g/dL (12.0-15.5) L Hematocrit 33.8 % (36.0-47.0) L Mean Corpuscular Volume 79 fL (79-100) Mean Corpuscular Hemoglobin 26 pg (25-35) Mean Corpuscular Hemoglobin Concent 33 g/dL (31-37) Red Cell Distribution Width 25.5 % (11.5-14.5) H Platelet Count 387 x10^3/uL (140-400) Neutrophils (%) (Auto) 71 % (31-73) Lymphocytes (%) (Auto) 21 % (24-48) L Monocytes (%) (Auto) 7 % (0-9) Eosinophils (%) (Auto) 1 % (0-3) Basophils (%) (Auto) 1 % (0-3) Neutrophils # (Auto) 3.9 x10^3uL (1.8-7.7) Lymphocytes # (Auto) 1.1 x10^3/uL (1.0-4.8) Monocytes # (Auto) 0.4 x10^3/uL (0.0-1.1) Eosinophils # (Auto) 0.1 x10^3/uL (0.0-0.7) Basophils # (Auto) 0.0 x10^3/uL (0.0-0.2) Platelet Estimate Adequate (ADEQUATE) Large Platelets Occ Anisocytosis Mod Ovalocytes Occ Urine Collection Type Void Urine Color Yellow Urine Clarity Clear Urine pH 6.5 Urine Specific Mallie 1.020 Urine Protein Negative mg/dL (NEG-TRACE) Urine Glucose (UA) Negative mg/dL (NEG) Urine Ketones (Stick) Negative mg/dL (NEG) Urine Blood Negative (NEG) Urine Nitrite Negative (NEG) Urine Bilirubin Negative (NEG) Urine Urobilinogen Dipstick 0.2 mg/dL (0.2 mg/dL) Urine Leukocyte Esterase Negative (NEG) Urine RBC 0 /HPF (0-2) Urine WBC Occ /HPF (0-4) Urine Squamous Epithelial Cells Occ /LPF Urine Bacteria 0 /HPF (0-FEW) Urine Mucus Mod /LPF Sodium Level 143 mmol/L (136-145) Potassium Level 3.6 mmol/L (3.5-5.1) Chloride Level 104 mmol/L (98-107) Carbon Dioxide Level 27 mmol/L (21-32) Anion Gap 12 (6-14) Blood Urea Nitrogen 9 mg/dL (7-20) Creatinine 0.9 mg/dL (0.6-1.0) Estimated GFR (Cockcroft-Gault) 74.7 BUN/Creatinine Ratio 10 (6-20) Glucose Level 94 mg/dL (70-99) Calcium Level 9.3 mg/dL (8.5-10.1) Total Bilirubin 0.3 mg/dL (0.2-1.0) Aspartate Amino Transferase (AST) 15 U/L (15-37) Alanine Aminotransferase (ALT) 19 U/L (14-59) Alkaline Phosphatase 288 U/L (46-116) H Total Protein 7.5 g/dL (6.4-8.2) Albumin 3.9 g/dL (3.4-5.0) Albumin/Globulin Ratio 1.1 (1.0-1.7) Laboratory Tests 02/06/18 13:10 Laboratory Tests 02/06/18 13:10 EKG EKG [] Radiology/Procedures Radiology/Procedures PROCEDURE: CT ABD PELV W/ IV CONTRST ONLY CT study of the abdomen and pelvis with contrast Clinical indications: Right lower quadrant pain. Diarrhea. TECHNIQUE: After IV infusion of 75 cc of Optiray 300, helical CT scanning of abdomen and pelvis was performed. No GI contrast was administered. This may decrease the sensitivity to detect GI tract pathology. PQRS compliance Statement One or more of the following individualized dose reduction techniques were utilized for this study: 1. Automated exposure control 2. Adjustment of the mA and/or kV according to patient size 3. Use of iterative reconstruction technique COMPARISON: October 26, 2017. FINDINGS: The liver and spleen and pancreas are unremarkable. The gallbladder is surgically absent. No progressive dilatation of the extra hepatic biliary tree is seen study. No adrenal mass is evident. There is a cyst of the lower pole of the right kidney. No hydronephrosis or hydroureter is evident. There is a nonobstructing punctate stone of the lower pole of the left kidney. No focal aneurysmal dilatation of the abdominal aorta is seen. No enlarged abdominal or pelvic lymphadenopathy is evident. No uterine mass or fibroid is seen. No dominant ovarian cyst or mass is evident. There is segmental wall thickening of the colon involving the transverse and descending and sigmoid portions. This may be seen with colitis. No obstructive bowel pattern is evident. There are no CT findings of appendicitis. No free air or free fluid or mesenteric edema is seen. No lung base consolidation is evident. There is trabecular thickening and expansion of T11 and L2 vertebral bodies which is unchanged from the previous study and this may be seen with Paget's disease given the expansion. No new lytic process is seen. No new compression fracture is evident. 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 Since the previous study, the patient has had L4-5 fusion. Grade 1 anterolisthesis at this level is stable. IMPRESSION: Segmental wall thickening of the colon which may be seen with colitis. Moderate-sized hiatal hernia. Nonobstructing punctate stone of the left kidney.[] Course & Med Decision Making Course & Med Decision Making Pertinent Labs and Imaging studies reviewed. (See chart for details) Dx: colitis CT suggests colitis. Labs WNL. Offered admission to hospital to patient, patient declines admission. Pt reports decreased pain after medications. Prescriptions written for flagyl, cipro, and hydrocodone. Follow up with PCP in 1-2 days, return to ER if symptoms worsen. Patient verbalized an understanding of home care, medications, follow-up, and return to ED instructions and was in agreement with the plan of care. [] Dragon Disclaimer Dragon Disclaimer This electronic medical record was generated, in whole or in part, using a voice recognition dictation system. Departure Departure Impression: Primary Impression: Colitis Additional Impression: Right lower quadrant abdominal pain Disposition: 01 HOME, SELF-CARE Condition: STABLE Referrals: LYDIA FITZPATRICK MD (PCP) Patient Instructions: Colitis Additional Instructions: Fill the prescriptions and use as directed. Increase clear fluids. Follow up with your PCP in 1-2 days. Return to the ER if your symptoms worsen. Scripts Hydrocodone Bit/Acetaminophen (HYDROCODONE-APAP 5-325 ) 1 Each Tablet 1 TAB PO PRN Q6HRS PRN for PAIN for 5 Days, #20 TAB 0 Refills Prov: JP WALL PRIZE JACKER 02/06/18 Ciprofloxacin Hcl (CIPRO) 500 Mg Tablet 1 TAB PO BID, #20 TAB Prov: JP WALL PRIZE JACKER 02/06/18 Metronidazole (FLAGYL) 250 Mg Tablet 1 TAB PO TID, #30 TAB Prov: JP WALL PRIZE JACKER 02/06/18 Problem Qualifiers JP WALL PRIZE JACKER Feb 06, 2018 16:33
== END 2018-02-06 16:44 | disposition home or self-care (01) ==
LOC: ER 12:20
DX: K52.9 Noninfective gastroenteritis and colitis, unspecified (principal); K21.9 Gastro-esophageal reflux disease without esophagitis; I25.10 Atherosclerotic heart disease of native coronary artery without angina pectoris; I48.91 Unspecified atrial fibrillation; I10 Essential (primary) hypertension; Z86.718 Personal history of other venous thrombosis and embolism; Z87.11 Personal history of peptic ulcer disease; Z90.89 Acquired absence of other organs; Z90.49 Acquired absence of other specified parts of digestive tract; Z88.6 Allergy status to analgesic agent; Z88.5 Allergy status to narcotic agent; Z88.8 Allergy status to other drugs, medicaments and biological substances
CPT/HCPCS: 36415; 74177; 80053; 81001; 85025; 96374; 96375; 99284; J2405; J3010; Q9967

== ENCOUNTER 2018-03-22 23:29 | Emergency (ER) | payer OTHER ==
[~2018-03-22] VITALS: Ht 162.6 cm; Wt 76.2 kg
[~2018-03-22 23:29] MED LIST changes: +ALBU2.5V8 INH; -ALBU8.5H8 INH; +CIPR500T94 PO; +HYDR-2761 PO; +METR250T PO; -OXYC-323 PO; +OXYC1TAB15 PO
[2018-03-22 23:30] VITALS: BP 217/85
[2018-03-23] MEDS ORDERED: TRAM50TA PO (00:14)
--- NOTE | 2018-03-23 00:15 | PHYS DOC ---
Past Medical History Past Medical History: A-Fib, CAD, DVT, GERD, Hypertension, P.U.D. Additional Past Medical Histor: PEPTIC ULCER, BACK PROBLEMS, DEGENERATIVE DISC DISEASE Past Surgical History: Appendectomy, Cholecystectomy Additional Past Surgical Histo: LEFT GREAT TOE CORRECTION, "BACK SURGERY" Alcohol Use: None Drug Use: None Adult General Chief Complaint Chief Complaint: LOWER BACK PAIN OR INJURY HPI HPI Patient is a 72 year old female with history of hypertension, CAD, who presents today complaining of 9 out of 10 left low back pain that has been going on since March 11, 2018 when she fell. She states she was evaluated at [facility] and had negative x-rays done on March 14, 2018. She states around November 2017 she had L4-L5 lumbar laminectomy. She states she follows up with Dr. Miller. Patient denies any new injuries. Denies any loss of bowel bladder function, she states she has chronic pain radiating to bilateral lower extremities. Denies any numbness or tingling to bilateral lower extremities. She states her PCP usually gives her tramadol. She currently does not have any tramadol. Review of Systems Review of Systems Constitutional: Denies fever or chills [] GI: Denies abdominal pain, nausea, vomiting, bloody stools or diarrhea [] : Denies dysuria or hematuria [] Musculoskeletal: Reports low back pain Integument: Denies rash or skin lesions [] Neurologic: Denies headache, focal weakness or sensory changes [] All other systems were reviewed and found to be within normal limits, except as documented in this note. Current Medications Current Medications Current Medications Medications (Trade) Dose Ordered Sig/[facility] Start Time Stop Time Status Last Admin Dose Admin Tramadol HCl (Ultram) 50 mg 1X ONCE 03/23/18 00:30 03/23/18 00:31 03/23/18 00:05 50 MG Allergies Allergies Allergies Coded Allergies Type Severity Reaction Last Updated Verified aspirin Allergy Intermediate 07/11/16 Yes codeine Allergy Intermediate 07/11/16 Yes diazepam Allergy Intermediate 07/11/16 Yes ibuprofen Allergy Intermediate 07/11/16 Yes ketorolac Allergy Intermediate Shortness of Air 10/18/17 Yes morphine Allergy Intermediate takes ULTRAM at home 10/23/16 Yes promethazine Allergy Intermediate 07/11/16 Yes Uncoded Allergies Type Severity Reaction Last Updated Verified IM SHOTS Allergy Unknown 07/21/13 Physical Exam Physical Exam Constitutional: Well developed, well nourished, no acute distress, non-toxic appearance. [] Abdomen: Bowel sounds normal, soft, no tenderness, no masses, no pulsatile masses. [] Skin: Warm, dry, no erythema, no rash. [] Back: Patient has a lumbar brace on. Diffuse paraspinal muscle tenderness bilateral lumbar spine worse on the left lower lumbar spine, no midline lumbar spine tenderness, no CVA tenderness. [] Extremities: No tenderness, no cyanosis, no clubbing, ROM intact, no edema. [] Neurologic: Alert and oriented X 3, normal motor function, normal sensory function, no focal deficits noted. [] Psychologic: Affect normal, judgement normal, mood normal. [] Current Patient Data Vital Signs Vital Signs Date Time Temp Pulse Resp B/P (MAP) Pulse Ox O2 Delivery O2 Flow Rate FiO2 03/22/18 23:30 98.4 80 20 217/85 (129) 100 Room Air 98.4 EKG EKG [] Radiology/Procedures Radiology/Procedures [] Course & Med Decision Making Course & Med Decision Making Pertinent Labs and Imaging studies reviewed. (See chart for details) This is a 72-year-old female patient presenting to the ED today with low back pain. She fell down around March 11, already had x-rays done March 14, 2018 which were negative. No new injuries. Patient is out of tramadol. She has a neurosurgeon she follows up with who did her lumbar laminectomy in November 2017. Patient was given prescription for 10 tablets of tramadol. Instructed to follow-up with her doctor in the course of next week. Her blood pressure was 217 /85. History of hypertension. Has not taken her evening medicines. Recommended she takes her evening medicines as she gets home. Dragon Disclaimer Dragon Disclaimer This electronic medical record was generated, in whole or in part, using a voice recognition dictation system. Departure Departure Impression: Primary Impression: Chronic back pain Additional Impression: HTN (hypertension) Disposition: HOME, SELF-CARE Condition: STABLE Referrals: LYDIA FITZPATRICK MD (PCP) Follow-up next week Patient Instructions: Back Pain, Adult, [id number], Hypertension Additional Instructions: You were evaluated in the emergency room for chronic low back pain. Please take the prescribed medications as ordered. Please follow-up with your own primary care doctor as well as neurosurgeon in the course of next week. Ensure you take her blood pressure medicine as prescribed by your primary care doctor. Follow- up with your own primary care doctor in the course of next week. Scripts Tramadol Hcl (TRAMADOL HCL) 50 Mg Tablet 50 MG PO Q6HRS PRN for PAIN, #10 TAB Prov: DANNY DREW CLOCK MECHANIC 03/23/18 Problem Qualifiers Primary Impression: Chronic back pain Back pain location: low back pain Back pain laterality: bilateral Sciatica presence: with sciatica Sciatica laterality: bilateral sciatica Qualified Codes: M54.42 - Lumbago with sciatica, left side; M54.41 - Lumbago with sciatica, right side; G89.29 - Other chronic pain Additional Impression: HTN (hypertension) Hypertension type: unspecified Qualified Codes: I10 - Essential (primary) hypertension DANNY DREW CLOCK MECHANIC Mar 23, 2018 00:15
[2018-03-23] MEDS ORDERED: traMADol 50 MG TABLET PO ONE (00:30)
== END 2018-03-23 00:22 | disposition home or self-care (01) ==
LOC: ER 03-23 00:10
DX: G89.29 Other chronic pain (principal); M54.5 Low back pain; G89.11 Acute pain due to trauma; I48.91 Unspecified atrial fibrillation; K21.9 Gastro-esophageal reflux disease without esophagitis; I25.10 Atherosclerotic heart disease of native coronary artery without angina pectoris; Z86.718 Personal history of other venous thrombosis and embolism; I10 Essential (primary) hypertension; Z90.89 Acquired absence of other organs; Z90.49 Acquired absence of other specified parts of digestive tract; Z87.11 Personal history of peptic ulcer disease; Z88.8 Allergy status to other drugs, medicaments and biological substances; Z88.5 Allergy status to narcotic agent; Z88.6 Allergy status to analgesic agent; W18.39XA Other fall on same level, initial encounter; Y93.89 Activity, other specified; Y92.89 Other specified places as the place of occurrence of the external cause; Y99.8 Other external cause status
CPT/HCPCS: 99284

== ENCOUNTER → 2018-05-22 | Outpatient (CLI) | payer OTHER ==
[~2018-05-22] MED LIST changes: +AMLO5TAB10 PO; -AMLO5TAB7 PO; +METH-37 PO; +ZOLPIDEM 5 MG TABLET. PO ONE
--- NOTE | 2018-05-27 18:51 | SLEEP ---
DATE OF STUDY: 05/22/2018 ATTENDING PHYSICIAN: Dr. Jeffrey Segura. REFERRING PHYSICIAN: Dr. Dustin Hendrickson. The patient is 72 years old who weighs 172 pounds with a BMI of 29. The patient's [place] score was 1. The patient underwent diagnostic sleep study at [facility]. During the night study, the patient spent 408 minutes in bed and slept for 352 minutes with a sleep efficiency of 86%. Sleep latency was 26 minutes with a REM latency of 137 minutes. Sleep architecture showed normal stage 1 sleep, increased stage 2 sleep, normal slow wave and normal REM sleep. During the night study, the patient had 13 obstructive apneas, 3 mixed apneas, 1 central apnea and 15 hypopneas. The patient's apnea hypopnea index was 6 per hour, supine index 7 per hour and the REM index of 20 per hour. EKG monitoring revealed a paced rhythm, average heart rate 72 beats per minute, no sustained arrhythmias were observed. The patient's average oxygen saturation remained around 96% with the lowest of 90%. PLMs were seen at index of 77 per hour and 9 per hour caused EEG arousals. Due to low AHI, the patient did not meet the criteria for CPAP initiation. IMPRESSION: 1. Mild sleep apnea hypopnea syndrome with moderate increase during REM sleep. Total AHI 6 per hour with a REM AHI of 20 per hour. 2. Severe periodic limb movements. 3. No clinically significant nocturnal hypoxia. RECOMMENDATIONS: 1. Due to low AHI, the patient did not meet the split night criteria for CPAP initiation. 2. I would recommend weight loss as the initial form of treatment. 3. If the patient remains symptomatic despite weight loss, then consider treatment of sleep apnea with either oral appliance or a trial of CPAP. 4. PLMs can be treated with dopaminergic agonist agents if the patient is clinically symptomatic. The patient should also be further evaluated for symptoms of restless legs during the day. 5. Caution regarding driving until hypersomnia is resolved with above recommendations. HAZEL HERNÁNDEZ MD DR: JAYY/debi JOB#: [id number] / [id number] JEFFREY Og MD, GEORGE MD [facility] SYSTEMPippa
== END | disposition home or self-care (01) ==
LOC: SLPLAB 18:53
PROVIDERS: ATTEND Internal Medicine Pulmonary Disease
DX: G47.33 Obstructive sleep apnea (adult) (pediatric) (principal); G47.61 Periodic limb movement disorder
CPT/HCPCS: 95810

== ENCOUNTER 2018-07-06 15:45 | Emergency (ER) | payer OTHER ==
[~2018-07-06] VITALS: Ht 162.6 cm; Wt 78.0 kg
[~2018-07-06 15:45] MED LIST changes: -METH-37 PO; -ZOLPIDEM 5 MG TABLET. PO ONE
[2018-07-06 16:04] VITALS: BP 202/86
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
[2018-07-06] MEDS ORDERED: METH-37 PO (16:42)
[2018-07-06] MEDS ORDERED: METH4TAB2 PO (16:42)
[2018-07-06] MEDS ORDERED: DEXAMETHASONE SOD PHOS 4 MG/ML VIAL IM ONE (16:45)
[2018-07-06] MEDS ORDERED: fentaNYL PF VIAL 100 MCG/2 ML VIAL IM ONE (16:45)
== END 2018-07-06 17:13 | disposition home or self-care (01) ==
LOC: ER 15:45
DX: G89.29 Other chronic pain (principal); M54.41 Lumbago with sciatica, right side; M54.42 Lumbago with sciatica, left side; I11.9 Hypertensive heart disease without heart failure; J45.909 Unspecified asthma, uncomplicated; Z90.89 Acquired absence of other organs; Z90.49 Acquired absence of other specified parts of digestive tract; Z95.5 Presence of coronary angioplasty implant and graft; Z98.890 Other specified postprocedural states; Z88.5 Allergy status to narcotic agent; Z88.6 Allergy status to analgesic agent; Z88.8 Allergy status to other drugs, medicaments and biological substances
CPT/HCPCS: 96372; 99284; J1100; J3010

== ENCOUNTER 2019-01-26 16:52 | Emergency (ER) | payer OTHER ==
[~2019-01-26] VITALS: Ht 165.1 cm; Wt 78.0 kg
[~2019-01-26 16:52] MED LIST changes: +METH-37 PO; -PANT40TA5 PO; +PANT40TA77 PO
[2019-01-26 17:15] VITALS: BP 204/93
--- NOTE | 2019-01-26 19:06 | RAD ---
EXAM: AP, lateral and lumbosacral spot views of the lumbar spine DATE: 01/26/2019 7:02 PM INDICATION: Fall down 5 steps, low back pain COMPARISON: 09/11/2017, 02/06/2018 CT FINDINGS: Mild height loss of the L2 and T11 vertebral body is essentially stable to 02/06/2018. Posterior spinal fusion hardware L4-5 is stable. Multifocal expansile lesions within the T11, L1 vertebral bodies and sacrum with cortical and trabecular thickening may represent changes of Paget's disease. Moderate to severe L5-S1 disc height loss. Mild L4-5 disc height loss. Mild L1-2 and L2-3 disc height loss. IMPRESSION: No acute fracture or subluxation. Height loss of the T11 and L1 vertebral bodies is stable. Electronically signed by: Inderjit Fatima MD (01/26/2019 7:03 PM) [id number]
--- NOTE | 2019-01-26 19:19 | PHYS DOC ---
Past Medical History Past Medical History: Asthma, Heart Disease, Hypertension, Migraines Additional Past Medical Histor: CARDIAC STENT PLACED 2015, ulcer, chronic back pain Past Surgical History: Appendectomy, Cholecystectomy Additional Past Surgical Histo: LEFT GREAT TOE CORRECTION, "BACK SURGERY" Alcohol Use: None Drug Use: None Adult General Chief Complaint Chief Complaint: PAIN CONTROL HPI HPI Patient is a 73 year old AA female who presents to the emergency department with history of increased back pain over surgical site since yesterday. Patient has a history of chronic low back pain she had back surgery lumbar fusion over 10 months ago. Since having that surgery she has had problems with left hand and left foot numbness. Patient states that she fell down 5 steps 2 days ago but she didn't feel like anything was hurt until last night when she developed pain in her lower lumbar spine. Patient denies any redness, warmth, or drainage at the surgical site. She denies any bruising, abrasions, swelling, or pain from the fall. Patient states that her pain is a 7 out of 10 on the pain scale. She took tramadol 2 hours ago with no relief of her pain. Patient reports that she took her blood pressure medications this morning as prescribed. She was seen by her primary care doctor last week on Sunday for some x-rays of her spine but she does not have the results of those yet. Pt denies any saddle anesthesia, loss of bowel/bladder control, nausea, vomiting, diarrhea, abdominal pain, increased urinary frequency, hematuria, or dysuria. All other ROS is neg unless otherwise noted in HPI. Review of Systems Review of Systems See Above Allergies Allergies Allergies Coded Allergies Type Severity Reaction Last Updated Verified aspirin Allergy Intermediate 07/11/16 Yes codeine Allergy Intermediate 07/11/16 Yes diazepam Allergy Intermediate 07/11/16 Yes ibuprofen Allergy Intermediate 07/11/16 Yes ketorolac Allergy Intermediate Shortness of Air 10/18/17 Yes morphine Allergy Intermediate takes ULTRAM at home 10/23/16 Yes promethazine Allergy Intermediate 07/11/16 Yes Physical Exam Physical Exam See Above Constitutional: Well developed, well nourished, no acute distress, non-toxic appearance. [] HENT: Normocephalic, atraumatic, bilateral external ears normal, nose normal. [] Eyes: PERRLA, EOMI, conjunctiva normal, no discharge. [] Neck: Normal range of motion, no stridor. [] Cardiovascular:Heart rate regular rhythm Lungs & Thorax: Respirations even and unlabored, no retractions, no respiratory distress Skin: Warm, dry, no erythema, no rash, no bruising [] Back: lumbar bony TTP, no paraspinal ttp, no CVA tenderness. [] Extremities: No cyanosis, no clubbing, ROM intact, no edema. [] Neurologic: Alert and oriented X 3, no focal deficits noted. [] Psychologic: Affect normal, judgement normal, mood normal. [] Current Patient Data Vital Signs Vital Signs Date Time Temp Pulse Resp B/P (MAP) Pulse Ox O2 Delivery O2 Flow Rate FiO2 01/26/19 17:15 98.5 81 16 204/93 (130) 98 Room Air 98.5 EKG EKG [] Radiology/Procedures Radiology/Procedures PROCEDURE: LUMBAR SPINE 2-3V EXAM: AP, lateral and lumbosacral spot views of the lumbar spine DATE: 01/26/2019 7:02 PM INDICATION: Fall down 5 steps, low back pain COMPARISON: 09/11/2017, 02/06/2018 CT FINDINGS: Mild height loss of the L2 and T11 vertebral body is essentially stable to 02/06/2018. Posterior spinal fusion hardware L4-5 is stable. Multifocal expansile lesions within the T11, L1 vertebral bodies and sacrum with cortical and trabecular thickening may represent changes of Paget's disease. Moderate to severe L5-S1 disc height loss. Mild L4-5 disc height loss. Mild L1-2 and L2-3 disc height loss. IMPRESSION: No acute fracture or subluxation. Height loss of the T11 and L1 vertebral bodies is stable.[] Course & Med Decision Making Course & Med Decision Making Pertinent Labs and Imaging studies reviewed. (See chart for details) dx: Chronic back pain Patient is a 73-year-old female who presented to the emergency room with complaints of low back pain exacerbation since last night. She reported a fall the day before down approximately 5 steps, patient denied any saddle anesthesia, loss of bowel or bladder control. She reported chronic left foot and left hand numbness following a back surgery 10 months ago. Her lumbar plain films were negative for any acute fracture. Physical exam was not concerning for any acute condition including cauda equina. Patient was encouraged to take her pain medication as prescribed by her primary care doctor and to follow-up with him about her chronic pain issues. The patient's blood pressure was elevated on arrival, patient reported a history of hypertension, states that she takes her blood pressure medication at home as prescribed. Patient verbalized an understanding of home care, medications, follow-up, and return to ED instructions and was in agreement with the plan of care. [] Dragon Disclaimer Dragon Disclaimer This electronic medical record was generated, in whole or in part, using a voice recognition dictation system. Departure Departure Impression: Primary Impression: Chronic back pain Disposition: HOME, SELF-CARE Condition: STABLE Referrals: Shivani AGUIRRE MD (PCP) Patient Instructions: Back Pain, Adult, [id number] Additional Instructions: Continue taking your pain medication as prescribed. Follow up with your primary care doctor for further evaluation and management of your chronic pain. Return to the ER if symptoms worsen. Problem Qualifiers Primary Impression: Chronic back pain Back pain location: low back pain Back pain laterality: midline Sciatica presence: without sciatica Qualified Codes: M54.5 - Low back pain; G89.29 - Other chronic pain [employer] Jan 26, 2019 19:19
== END 2019-01-26 19:30 | disposition home or self-care (01) ==
LOC: ER 16:52
DX: G89.29 Other chronic pain (principal); M54.5 Low back pain; I11.9 Hypertensive heart disease without heart failure; G43.909 Migraine, unspecified, not intractable, without status migrainosus; J45.909 Unspecified asthma, uncomplicated; I10 Essential (primary) hypertension; Z95.5 Presence of coronary angioplasty implant and graft; Z90.89 Acquired absence of other organs; Z90.49 Acquired absence of other specified parts of digestive tract; Z88.5 Allergy status to narcotic agent; Z88.6 Allergy status to analgesic agent; Z88.8 Allergy status to other drugs, medicaments and biological substances
CPT/HCPCS: 72100; 99284

== ENCOUNTER → 2019-06-19 | Outpatient (CLI) | payer OTHER ==
--- NOTE | 2019-06-19 10:55 | KCIC ---
CHEST PA LATERAL Clinical indications: Dry cough for 2 months. Asthma. Nonsmoker. COMPARISON: April 01, 2018. April 21, 2017. Findings: Again seen is a granuloma of the superior segment left lower lobe which is unchanged. No acute lung infiltrate or pleural effusion or pulmonary edema or lung mass or pneumothorax is seen. Again seen is a retrocardiac hiatal hernia. The heart size, pulmonary vasculature, mediastinum and both anayeli are otherwise unremarkable. The osseous structures appear intact. Thoracic spinal canal stimulator device has been placed in the interim. Impression: No acute radiographic abnormality is seen. Electronically signed by: Julio Cesar Velasquez MD (06/19/2019 10:53 AM) [id number]
== END | disposition home or self-care (01) ==
LOC: KCIC 10:23
PROVIDERS: ATTEND Family Medicine
DX: J84.10 Pulmonary fibrosis, unspecified (principal); K44.9 Diaphragmatic hernia without obstruction or gangrene
CPT/HCPCS: 71046

== ENCOUNTER 2019-08-02 02:12 | Emergency (ER) | payer OTHER ==
[~2019-08-02] VITALS: Ht 162.6 cm; Wt 67.7 kg
[~2019-08-02 02:12] MED LIST changes: +PREG-9 PO; -PREG75CA PO
[2019-08-02] MEDS ORDERED: cloNIDine HCL 0.1 MG TABLET PO ONE (02:30)
[2019-08-02] MEDS ORDERED: traMADol 50 MG TABLET PO ONE (02:45)
[2019-08-02] MEDS ORDERED: ORPHENADRINE CITRATE 60 MG/2 ML VIAL. IM ONE (02:45)
[2019-08-02] MEDS ORDERED: DEXAMETHASONE SOD PHOS 20 MG/5 ML VIAL. IM ONE (02:45)
--- NOTE | 2019-08-02 02:51 | RAD ---
Three view lumbosacral spine History: Pain AP, coned-down lateral and lateral views of the lumbosacral spine were obtained. COMPARISON: January 26, 2019 FINDINGS: There is grade 1 anterolisthesis of L5 on S1 and there is mild retrolisthesis of L2 on L3. There is gross osteopenia. There is moderate loss of stature of the L2 vertebral body with impaction of the endplates. There has been prior fusion of L4-5 with bilateral pedicle screws and posterior fusion rods. Impression: Progressive loss of stature of the L2 vertebral body is likely an acute or subacute compression fracture. End Impression Electronically signed by: Michael Abbott III, MD (08/02/2019 2:49 AM) [id number]
[2019-08-02] MEDS ORDERED: fentaNYL PF VIAL 100 MCG/2 ML VIAL IM ONE (03:15)
[2019-08-02] MEDS ORDERED: fentaNYL PF VIAL 100 MCG/2 ML VIAL ONE (03:17)
--- NOTE | 2019-08-02 03:54 | PHYS DOC ---
Past Medical History Past Medical History: Anemia, Asthma, Heart Disease, Hypertension, Migraines, P.U.D. Additional Past Medical Histor: CARDIAC STENT PLACED 2015, ulcer, chronic back pain Past Surgical History: Appendectomy, Cholecystectomy Additional Past Surgical Histo: LEFT GREAT TOE CORRECTION, "BACK SURGERY", R BREAST BIOPSY, EXPLORATORY ABD Smoking Status: Never Smoker Alcohol Use: None Drug Use: None General Adult EDM: Chief Complaint: BACK PAIN OR INJURY HPI: HPI: Patient is a 73 year old female who presents with complaint of lower back pain for the last week. Patient reportedly had fallen down stairs a week ago and was seen at [facility] where they did x-rays but did not find any abnormalities. Patient states that she was discharged home with no pain medication. She rates her pain to be a 10 out of 10. She denies any loss of bowel or bladder control. She denies any pain radiation. [] Review of Systems: Review of Systems: Constitutional: Denies fever or chills. [] Respiratory: Denies cough or shortness of breath. [] Cardiovascular: Denies chest pain or edema. [] GI: Denies abdominal pain, nausea, vomiting or diarrhea. [] Musculoskeletal: Complains of lower back pain. [] Integument: Denies rash. [] Neurologic: Denies headache, focal weakness or sensory changes. [] A full 10 point review of systems has been reviewed and is otherwise negative. Heart Score: Risk Factors: Risk Factors: DM, Current or recent (<one month) smoker, HTN, HLP, family history of CAD, obesity. Risk Scores: Score 0 - 3: 2.5% MACE over next 6 weeks - Discharge Home Score 4 - 6: 20.3% MACE over next 6 weeks - Admit for Clinical Observation Score 7 - 10: 72.7% MACE over next 6 weeks - Early Invasive Strategies Current Medications: Current Medications Medications (Trade) Dose Ordered Sig/Danilo Start Time Stop Time Status Last Admin Dose Admin Clonidine HCl (Catapres) 0.2 mg 1X ONCE 08/02/19 02:30 08/02/19 02:46 DC 08/02/19 02:27 0.2 MG Dexamethasone Sodium Phosphate (Decadron) 10 mg 1X ONCE 08/02/19 02:45 08/02/19 02:46 DC 08/02/19 02:42 10 MG Fentanyl Citrate (Fentanyl 2ml Vial) 100 mcg STK-MED ONCE 08/02/19 03:17 08/02/19 03:17 DC Orphenadrine Citrate (Norflex) 60 mg 1X ONCE 08/02/19 02:45 08/02/19 02:46 DC 08/02/19 02:42 60 MG Tramadol HCl (Ultram) 50 mg 1X ONCE 08/02/19 02:45 08/02/19 02:46 DC 08/02/19 02:43 50 MG Allergies: Allergies: Allergies Coded Allergies Type Severity Reaction Last Updated Verified aspirin Allergy Intermediate 07/11/16 Yes codeine Allergy Intermediate 07/11/16 Yes diazepam Allergy Intermediate 07/11/16 Yes ibuprofen Allergy Intermediate 07/11/16 Yes ketorolac Allergy Intermediate Shortness of Air 10/18/17 Yes morphine Allergy Intermediate takes ULTRAM at home 10/23/16 Yes promethazine Allergy Intermediate 07/11/16 Yes Physical Exam: PE: Constitutional: Well developed, well nourished, no acute distress, non-toxic appearance. [] HENT: Normocephalic, atraumatic, bilateral external ears normal, oropharynx moist, no oral exudates, nose normal. [] Eyes: PERRLA, EOMI, conjunctiva normal, no discharge. [] Neck: Normal range of motion, no tenderness, supple, no stridor. [] Cardiovascular: Regular rate and rhythm [] Lungs & Thorax: Bilateral breath sounds clear to auscultation [] Abdomen: Bowel sounds normal, soft, no tenderness. [] Skin: Warm, dry, no erythema, no rash. [] Back: With reported tenderness to palpation in the bilateral paraspinal musculature of mid to lower lumbar region. [] Extremities: No tenderness, no cyanosis, no clubbing, ROM intact. [] Neurologic: Alert and oriented X 3, no focal deficits noted. [] Current Patient Data: Vital Signs: Vital Signs Date Time Temp Pulse Resp B/P (MAP) Pulse Ox O2 Delivery O2 Flow Rate FiO2 08/02/19 03:28 98.0 101 26 211/100 (137) 100 Room Air 98.0 EKG: EKG: [] Radiology/Procedures: Radiology/Procedures: [] Impression: PROCEDURE: LUMBAR SPINE 2-3V Three view lumbosacral spine History: Pain AP, coned-down lateral and lateral views of the lumbosacral spine were obtained. COMPARISON: January 26, 2019 FINDINGS: There is grade 1 anterolisthesis of L5 on S1 and there is mild retrolisthesis of L2 on L3. There is gross osteopenia. There is moderate loss of stature of the L2 vertebral body with impaction of the endplates. There has been prior fusion of L4-5 with bilateral pedicle screws and posterior fusion rods. Impression: Progressive loss of stature of the L2 vertebral body is likely an acute or subacute compression fracture. End Impression Electronically signed by: Michael Abbott III, MD (08/02/2019 2:49 AM) [id number] Course & Med Decision Making: Course & Med Decision Making Pertinent Labs and Imaging studies reviewed. (See chart for details) [] Dragon Disclaimer: Dragon Disclaimer: This electronic medical record was generated, in whole or in part, using a voice recognition dictation system. Departure Departure Impression: Primary Impression: Lumbar compression fracture Qualified Codes: S32.040A - Wedge compression fracture of fourth lumbar vertebra, initial encounter for closed fracture Disposition: HOME, SELF-CARE Condition: STABLE Referrals: Shivani AGUIRRE MD (PCP) Patient Instructions: Back, Compression Fracture Scripts Oxycodone/Apap 5-325 (PERCOCET 5-325 MG TABLET ) 1 Each Tablet 1-2 EACH PO Q6HRS PRN for PAIN, #20 TAB pain Prov: MAYRA HOLLIS Jr. DO 08/02/19 Orphenadrine Citrate (ORPHENADRINE CITRATE) 100 Mg Tablet.er 1 TAB PO BID PRN for MUSCLE SPASMS, #14 TAB Prov: MAYRA HOLLIS Jr. DO 08/02/19 MAYRA HOLLIS Jr. DO August 02, 2019 03:54
[2019-08-02] MEDS ORDERED: ORPH100T PO (05:16)
[2019-08-02] MEDS ORDERED: OXYC1TAB15 PO (05:16)
[2019-08-02 06:15] VITALS: BP 152/77
== END 2019-08-02 06:19 | disposition home or self-care (01) ==
LOC: ER 02:12
DX: S32.040A Wedge compression fracture of fourth lumbar vertebra, initial encounter for closed fracture (principal); I11.9 Hypertensive heart disease without heart failure; J45.909 Unspecified asthma, uncomplicated; G43.909 Migraine, unspecified, not intractable, without status migrainosus; G89.29 Other chronic pain; Z90.89 Acquired absence of other organs; Z90.49 Acquired absence of other specified parts of digestive tract; Z98.890 Other specified postprocedural states; Z88.5 Allergy status to narcotic agent; Z88.6 Allergy status to analgesic agent; Z88.8 Allergy status to other drugs, medicaments and biological substances; Z88.2 Allergy status to sulfonamides; W10.8XXA Fall (on) (from) other stairs and steps, initial encounter; Y93.89 Activity, other specified; Y92.89 Other specified places as the place of occurrence of the external cause; Y99.8 Other external cause status
CPT/HCPCS: 72100; 96372; 99285; J1100; J2360; J3010

== ENCOUNTER 2019-08-11 12:30 | Emergency (ER) | payer OTHER ==
[~2019-08-11] VITALS: Ht 162.6 cm; Wt 67.7 kg
[~2019-08-11 12:30] MED LIST changes: +ORPH100T PO
[2019-08-11] MEDS ORDERED: HYDROcodone/APAP 5/325MG 1 TAB TABLET PO ONE (14:15)
--- NOTE | 2019-08-11 14:36 | RAD ---
Three-view lumbar spine and single view pelvis dated 08/11/2019. Comparison made to 08/02/2019. Clinical data indication: Pain after fall. FINDINGS: 3 views lumbar spine show evidence of prior laminectomy and posterolateral fusion at L4-L5. There is slight anterolisthesis at the disc level, unchanged. Hardware is intact. There is moderate compression deformity of L2, stable. There is also mild compression deformity of T11, unchanged. Vertebral body heights are otherwise maintained. Alignment is otherwise anatomic. Mild to moderate endplate hypertrophic changes throughout with multilevel disc space narrowing and facet arthropathy. Single AP view pelvis shows normal bony alignment. No displaced fracture. The pelvic ring is intact. Mild hypertrophic change of the bilateral hip joint. Possible fusion of the bilateral SI joint. IMPRESSION: 1. Wedge compression deformities at T11 and L2, stable from prior study. No new compression fracture identified. 2. Multilevel spondylosis with evidence of prior laminectomy and fusion at L4-L5, stable from prior study. 3. No apparent pelvic fracture. If there is clinical concern for occult fracture or insufficiency fracture, MRI could better evaluate. Electronically signed by: Jeffrey Quevedo MD (08/11/2019 2:33 PM) [facility] – [place]
[2019-08-11 16:00] VITALS: BP 158/66
[2019-08-11] MEDS ORDERED: TRAM50TA PO (16:00)
--- NOTE | 2019-08-11 16:00 | PHYS DOC ---
Past Medical History Past Medical History: Anemia, Asthma, Heart Disease, Hypertension, Migraines, P.U.D. Additional Past Medical Histor: CARDIAC STENT PLACED 2015, ulcer, chronic back pain Past Surgical History: Appendectomy, Cholecystectomy Additional Past Surgical Histo: LEFT GREAT TOE CORRECTION, "BACK SURGERY", R BREAST BIOPSY, EXPLORATORY ABD Smoking Status: Never Smoker Alcohol Use: None Drug Use: None General Adult EDM: Chief Complaint: MECHANICAL FALL HPI: HPI: Patient is a 73 year old female who presented to the ER today for evaluation of lower back pain since she fell this morning. Patient has history of chronic lower back pain. Patient had nerve stimulator in her lower back area. Patient tripped over her dog this morning, fell onto her pelvic and lower back. She denied hitting her head. Patient c/o of lower back pain, no bowel or bladder incontinence. Review of Systems: Review of Systems: Constitutional: Denies fever or chills. [] Eyes: Denies change in visual acuity. [] HENT: Denies nasal congestion or sore throat. [] Respiratory: Denies cough or shortness of breath. [] Cardiovascular: Denies chest pain or edema. [] GI: Denies abdominal pain, nausea, vomiting, bloody stools or diarrhea. [] : Denies dysuria. [] Musculoskeletal: Positive for lower back pain. Integument: Denies rash. [] Neurologic: Denies headache, focal weakness or sensory changes. [] Endocrine: Denies polyuria or polydipsia. [] Lymphatic: Denies swollen glands. [] Psychiatric: Denies depression or anxiety. [] Heart Score: Risk Factors: Risk Factors: DM, Current or recent (<one month) smoker, HTN, HLP, family history of CAD, obesity. Risk Scores: Score 0 - 3: 2.5% MACE over next 6 weeks - Discharge Home Score 4 - 6: 20.3% MACE over next 6 weeks - Admit for Clinical Observation Score 7 - 10: 72.7% MACE over next 6 weeks - Early Invasive Strategies Current Medications: Current Medications Medications (Trade) Dose Ordered Sig/Danilo Start Time Stop Time Status Last Admin Dose Admin Acetaminophen/ Hydrocodone Bitart (Lortab 5/325) 2 tab 1X ONCE 08/11/19 14:15 08/11/19 14:16 DC 08/11/19 14:37 2 TAB Allergies: Allergies: Allergies Coded Allergies Type Severity Reaction Last Updated Verified aspirin Allergy Intermediate 07/11/16 Yes codeine Allergy Intermediate 07/11/16 Yes diazepam Allergy Intermediate 07/11/16 Yes ibuprofen Allergy Intermediate 07/11/16 Yes ketorolac Allergy Intermediate Shortness of Air 10/18/17 Yes morphine Allergy Intermediate takes ULTRAM at home 10/23/16 Yes promethazine Allergy Intermediate 07/11/16 Yes Physical Exam: PE: Constitutional: Well developed, well nourished, no acute distress, non-toxic appearance. [] HENT: Normocephalic, atraumatic, bilateral external ears normal, oropharynx moist, no oral exudates, nose normal. [] Eyes: PERRLA, EOMI, conjunctiva normal, no discharge. [] Neck: Normal range of motion, no tenderness, supple, no stridor. [] Cardiovascular:Heart rate regular rhythm, no murmur [] Lungs & Thorax: Bilateral breath sounds clear to auscultation [] Abdomen: Bowel sounds normal, soft, no tenderness, no masses, no pulsatile masses. [] Skin: Warm, dry, no erythema, no rash. [] Back: No tenderness, no CVA tenderness.THERE IS NO BONY STEP OFF, NO CONTUSION. There is tenderness to palpation at the L5/S1 area. ] Extremities: No tenderness, no cyanosis, no clubbing, ROM intact, no edema. [] Neurologic: Alert and oriented X 3, normal motor function, normal sensory function, no focal deficits noted. [] Psychologic: Affect normal, judgement normal, mood normal. [] Current Patient Data: Vital Signs: Vital Signs Date Time Temp Pulse Resp B/P (MAP) Pulse Ox O2 Delivery O2 Flow Rate FiO2 08/11/19 14:37 19 98 Room Air 08/11/19 13:17 98.2 82 183/81 (115) 98.2 EKG: EKG: [] Radiology/Procedures: Radiology/Procedures: [][facility] [address] [place], [place] [id number] IMAGING REPORT Signed PATIENT: DANIELA PANG ACCOUNT: [id number] : 1945 LOCATION: ER AGE: 73 SEX: F EXAM STATUS: REG ER ORD. PHYSICIAN: LUCITA RAMÍREZ DO REASON: fell, back pain, pelvic pain PROCEDURE: PELVIS Three-view lumbar spine and single view pelvis dated 08/11/2019. Comparison made to 08/02/2019. Clinical data indication: Pain after fall. FINDINGS: 3 views lumbar spine show evidence of prior laminectomy and posterolateral fusion at L4-L5. There is slight anterolisthesis at the disc level, unchanged. Hardware is intact. There is moderate compression deformity of L2, stable. There is also mild compression deformity of T11, unchanged. Vertebral body heights are otherwise maintained. Alignment is otherwise anatomic. Mild to moderate endplate hypertrophic changes throughout with multilevel disc space narrowing and facet arthropathy. Single AP view pelvis shows normal bony alignment. No displaced fracture. The pelvic ring is intact. Mild hypertrophic change of the bilateral hip joint. Possible fusion of the bilateral SI joint. IMPRESSION: 1. Wedge compression deformities at T11 and L2, stable from prior study. No new compression fracture identified. 2. Multilevel spondylosis with evidence of prior laminectomy and fusion at L4-L5, stable from prior study. 3. No apparent pelvic fracture. If there is clinical concern for occult fracture or insufficiency fracture, MRI could better evaluate. Electronically signed by: Jeffrey Quevedo MD (08/11/2019 2:33 PM) [facility] [place] DICTATED and SIGNED BY: JEFFREY QUEVEDO MD DATE: 08/11/19 1433 Course & Med Decision Making: Course & Med Decision Making Pertinent Labs and Imaging studies reviewed. (See chart for details) [] Denise Disclaimer: Denise Disclaimer: This electronic medical record was generated, in whole or in part, using a voice recognition dictation system. Departure Departure Impression: Primary Impression: Back pain Disposition: HOME, SELF-CARE Condition: STABLE Referrals: Shivani AGUIRRE MD (PCP) FOLLOW UP WITH YOUR FAMILY DOCTOR NEEDED FOR FOLLOW UP. Patient Instructions: Back Pain, Adult Scripts Tramadol Hcl (TRAMADOL HCL) 50 Mg Tablet 50 MG PO Q6HRS PRN for PAIN, #20 TAB Prov: LUCITA RAMÍREZ DO 08/11/19 LUCITA RAMÍREZ DO August 11, 2019 16:00
== END 2019-08-11 16:19 | disposition home or self-care (01) ==
LOC: ER 12:30
DX: M54.5 Low back pain (principal); G89.29 Other chronic pain; R10.2 Pelvic and perineal pain; G89.11 Acute pain due to trauma; I11.9 Hypertensive heart disease without heart failure; J45.909 Unspecified asthma, uncomplicated; G43.909 Migraine, unspecified, not intractable, without status migrainosus; Z90.89 Acquired absence of other organs; Z90.49 Acquired absence of other specified parts of digestive tract; Z95.5 Presence of coronary angioplasty implant and graft; Z98.890 Other specified postprocedural states; W18.39XA Other fall on same level, initial encounter; Y93.89 Activity, other specified; Y92.89 Other specified places as the place of occurrence of the external cause; Y99.8 Other external cause status
CPT/HCPCS: 72100; 72170; 99284; 99285

== ENCOUNTER → 2019-10-28 | Outpatient (CLI) | payer OTHER ==
--- NOTE | 2019-10-28 18:24 | RAD ---
EXAM: AP and lateral views left knee DATE: 10/28/2019 12:00 AM INDICATION: Reason: LEFT KNEE PAIN. / Spl. Instructions: / History: COMPARISON: No Prior FINDINGS/ IMPRESSION: 1. No evidence of acute fracture or dislocation. 2. Left knee joint osteoarthritis with moderate medial compartment joint space narrowing with tricompartmental osteophytes. 3. No joint effusion. Electronically signed by: Inderjit Fatima MD (10/28/2019 6:21 PM) [facility]
--- NOTE | 2019-10-28 19:54 | RAD ---
EXAM: AP pelvis, AP and lateral views left hip DATE: 10/28/2019 12:00 AM INDICATION: Reason: LEFT HIP PAIN. / Spl. Instructions: / History: COMPARISON: No Prior FINDINGS: Mild medial joint space narrowing of the hips bilaterally accentuated by patient rotation with associated coxa profunda SI joint fusion bilaterally. Expansile appearance of the bony structures of the sacrum, of uncertain clinical significance although possibly Paget's given the trabecular and cortical prominence. IMPRESSION: 1. No evidence of acute fracture or dislocation. 2. 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 Electronically signed by: Inderjit Fatima MD (10/28/2019 7:51 PM) [facility]
== END | disposition home or self-care (01) ==
LOC: RAD 11:55
PROVIDERS: ATTEND Family Medicine
DX: M17.12 Unilateral primary osteoarthritis, left knee (principal); M25.562 Pain in left knee; M25.552 Pain in left hip
CPT/HCPCS: 73502; 73560

== ENCOUNTER → 2020-01-05 | Outpatient (CLI) | payer OTHER ==
[~2020-01-05] MED LIST changes: +AMLO-186 PO; -AMLO5TAB10 PO; +CONTRAST GIVEN. MC PRN; +IOHEXOL 240 MG/ML 50ML VIAL. PO ONE; +IOHEXOL 300 MG/ML 100ML VIAL. IV ONE
--- NOTE | 2020-01-05 10:35 | KCIC ---
CT ABD PELV W/ORAL IV CONTRAST Indication: Anemia, 15 pound weight loss in one month, abnormal labs Technique: Postcontrast CT imaging was performed of the abdomen and pelvis, multiplanar reconstruction images submitted. Oral contrast was also given. One or more of the following individualized dose reduction techniques were utilized for this examination: 1. Automated exposure control 2. Adjustment of the mA and/or kV according to patient size 3. Use of iterative reconstruction technique. Comparison: February 06, 2018 Findings: There is mild motion. There is again moderate size hiatal hernia. There is possible hepatic steatosis although poorly evaluated on postcontrast imaging. There is again 0.3 cm left renal calculus. There are couple of hypodense foci of the right kidney, largest inferiorly about 1.8 cm with density characteristics of a cyst. There is new mild right hydronephrosis. There is no left hydronephrosis. Small 0.4 cm hypodense lesion of the inferior left kidney is too small to further accurately characterize. Ureters are difficult to entirely visualize on this exam, no delayed images available. Urinary bladder is somewhat distended. No focal abnormality is identified of the pancreas. There is some stool distention of the splenic flexure. Small bowel is not dilated. There is no free fluid or free air. Appendix is not confidently identified if still present. There is again posterolateral fusion hardware L4-5 with bilateral pedicle screws attached to vertical rods. There is L2 compression fracture in part present previously although progression of height loss and osseous retropulsion greater superiorly, suspected moderate to severe spinal stenosis. There is again focus of bone lysis of the T11 vertebral body, probably an underlying hemangioma. There is multilevel thoracolumbar degenerative disc disease. There is bone demineralization. No new significant lymphadenopathy is identified. There are thoracic spinal stimulator leads. Sacroiliac joints are fused bilaterally. IMPRESSION: 1. There is new mild right hydronephrosis, ureters poorly visualized on this exam and degree of ureteral obstruction by stricture or mass not excluded. Urinary bladder is somewhat distended. There is again small left renal calculus. 2. There has been progression of L2 vertebral body height loss with increased osseous retropulsion which contributes to suspected moderate to severe spinal stenosis. There is bone demineralization. 3. There is stool distention near splenic flexure. 4. There are some hypodense foci of the kidneys, largest inferior focus on the right with features of a cyst, other foci too small to further accurately characterize. 5. There is again moderate size hiatal hernia. Electronically signed by: Brody Snyder MD (01/05/2020 10:32 AM) [facility]
== END ==
LOC: KCIC 08:40
PROVIDERS: ATTEND Family Medicine
DX: K44.9 Diaphragmatic hernia without obstruction or gangrene (principal); D64.9 Anemia, unspecified; R74.8 Abnormal levels of other serum enzymes; R63.4 Abnormal weight loss; K76.0 Fatty (change of) liver, not elsewhere classified; N20.0 Calculus of kidney; N13.39 Other hydronephrosis; N28.9 Disorder of kidney and ureter, unspecified; N32.89 Other specified disorders of bladder
CPT/HCPCS: 74177; Q9966; Q9967

== ENCOUNTER 2020-02-02 17:39 | Emergency (ER) | payer OTHER ==
[~2020-02-02] VITALS: Ht 165.1 cm; Wt 65.8 kg
[~2020-02-02 17:39] MED LIST changes: -CONTRAST GIVEN. MC PRN; -IOHEXOL 240 MG/ML 50ML VIAL. PO ONE; -IOHEXOL 300 MG/ML 100ML VIAL. IV ONE
[2020-02-02] MEDS ORDERED: BENZTROPINE MESYLATE 2 MG/2 ML VIAL. IM STA (18:08)
--- NOTE | 2020-02-02 18:10 | PHYS DOC ---
Past Medical History Past Medical History: Anemia, Asthma, Heart Disease, Hypertension, Migraines, P.U.D. Additional Past Medical Histor: CARDIAC STENT PLACED 2015, ulcer, chronic back pain Past Surgical History: Appendectomy, Cholecystectomy Additional Past Surgical Histo: LEFT GREAT TOE CORRECTION, "BACK SURGERY", R BREAST BIOPSY, EXPLORATORY ABD Smoking Status: Never Smoker Alcohol Use: None Drug Use: None General Adult EDM: Chief Complaint: DIZZY/LIGHT HEADED HPI: HPI: Patient is a 74 year old female who presented to ER for evaluation of feeling dizzy, shakiness, uneasy after she took 30 mg of Cymbalta that her doctor just prescribed for her today. This is her first time taking the medication. Patient denies any seizure, no chest pain, no trouble breathing, no headache, no nausea vomiting. She says she has been allergic to a lot of different medication in the past. Review of Systems: Review of Systems: Constitutional: Denies fever or chills. [] Eyes: Denies change in visual acuity. [] HENT: Denies nasal congestion or sore throat. [] Respiratory: Denies cough or shortness of breath. [] Cardiovascular: Denies chest pain or edema. [] GI: Denies abdominal pain, nausea, vomiting, bloody stools or diarrhea. [] : Denies dysuria. [] Musculoskeletal: Denies back pain or joint pain. [] Integument: Denies rash. [] Neurologic: Denies headache, focal weakness or sensory changes. Positive for dizziness Endocrine: Denies polyuria or polydipsia. [] Lymphatic: Denies swollen glands. [] Psychiatric: Denies depression, positive for shakiness and anxious Heart Score: Risk Factors: Risk Factors: DM, Current or recent (<one month) smoker, HTN, HLP, family history of CAD, obesity. Risk Scores: Score 0 - 3: 2.5% MACE over next 6 weeks - Discharge Home Score 4 - 6: 20.3% MACE over next 6 weeks - Admit for Clinical Observation Score 7 - 10: 72.7% MACE over next 6 weeks - Early Invasive Strategies Allergies: Allergies: Allergies Coded Allergies Type Severity Reaction Last Updated Verified aspirin Allergy Intermediate 07/11/16 Yes codeine Allergy Intermediate 07/11/16 Yes diazepam Allergy Intermediate 07/11/16 Yes ibuprofen Allergy Intermediate 07/11/16 Yes ketorolac Allergy Intermediate Shortness of Air 10/18/17 Yes morphine Allergy Intermediate takes ULTRAM at home 10/23/16 Yes promethazine Allergy Intermediate 07/11/16 Yes Physical Exam: PE: Constitutional: Well developed, well nourished, no acute distress, non-toxic appearance. [] HENT: Normocephalic, atraumatic, bilateral external ears normal, oropharynx moist, no oral exudates, nose normal. [] Eyes: PERRLA, EOMI, conjunctiva normal, no discharge. [] Neck: Normal range of motion, no tenderness, supple, no stridor. [] Cardiovascular:Heart rate regular rhythm, no murmur [] Lungs & Thorax: Bilateral breath sounds clear to auscultation [] Abdomen: Bowel sounds normal, soft, no tenderness, no masses, no pulsatile masses. [] Skin: Warm, dry, no erythema, no rash. [] Back: No tenderness, no CVA tenderness. [] Extremities: No tenderness, no cyanosis, no clubbing, ROM intact, no edema. [] Neurologic: Alert and oriented X 3, normal motor function, normal sensory function, no focal deficits noted. [] Psychologic: Affect normal, judgement normal, mood normal. [] EKG: EKG: [] Radiology/Procedures: Radiology/Procedures: [] Course & Med Decision Making: Course & Med Decision Making Pertinent Labs and Imaging studies reviewed. (See chart for details) Patient is a 73-year-old female who was taking Cymbalta for secondary, developed a dystonic reaction, was given medication in ER, she felt much better. Patient WILL be discharged home. Denise Disclaimer: Denise Disclaimer: This electronic medical record was generated, in whole or in part, using a voice recognition dictation system. Departure Departure Impression: Primary Impression: Drug reaction Additional Impression: Dystonia Disposition: 01 DC HOME SELF CARE/HOMELESS Condition: IMPROVED Referrals: Shivani AGUIRRE MD (PCP) Patient Instructions: Drug Allergy, Dystonic Reaction Additional Instructions: DO NOT TAKE CYMBALTA FROM NOW ON. Scripts Benztropine Mesylate (BENZTROPINE MESYLATE) 1 Mg Tablet 1 TAB PO BID for 2 Days, #4 TAB Prov: LUCITA RAMÍREZ DO 02/02/20 LUCITA RAMÍREZ DO Feb 02, 2020 18:10
[2020-02-02] MEDS ORDERED: BENZ1TAB5 PO (19:59)
[2020-02-02 20:30] VITALS: BP 144/81
== END 2020-02-02 20:42 | disposition home or self-care (01) ==
LOC: ER 17:39
DX: G24.9 Dystonia, unspecified (principal); T43.215A Adverse effect of selective serotonin and norepinephrine reuptake inhibitors, initial encounter; R42 Dizziness and giddiness; G43.909 Migraine, unspecified, not intractable, without status migrainosus; J45.909 Unspecified asthma, uncomplicated; I11.9 Hypertensive heart disease without heart failure; G89.29 Other chronic pain; Z90.89 Acquired absence of other organs; Z90.49 Acquired absence of other specified parts of digestive tract; Z98.890 Other specified postprocedural states; Z88.6 Allergy status to analgesic agent; Z88.8 Allergy status to other drugs, medicaments and biological substances; Z88.1 Allergy status to other antibiotic agents; Y92.89 Other specified places as the place of occurrence of the external cause
CPT/HCPCS: 96372; 99285; J0515

== ENCOUNTER 2020-02-05 16:47 | Emergency (ER) | payer OTHER ==
[~2020-02-05] VITALS: Ht 165.1 cm; Wt 73.0 kg
[~2020-02-05 16:47] MED LIST changes: +BENZ1TAB5 PO
[2020-02-05] MEDS ORDERED: ACETAMINOPHEN 500 MG TABLET PO ONE (17:30)
[2020-02-05] MEDS ORDERED: IV NORMAL SALINE 1000ML BAG 1,000 ML IV ONE (17:30)
[2020-02-05 18:13] LABS: BASO # 0.1 x10^3/uL (0.0-0.2); BASO % 1 % (0-3); EOS # 0.1 x10^3/uL (0.0-0.7); EOS % 2 % (0-3); HEMATOCRIT 27.7 % (36.0-47.0); HEMOGLOBIN 8.8 g/dL (12.0-15.5); LYMPH # 1.5 x10^3/uL (1.0-4.8); LYMPH % 23 % (24-48); MEAN CORPUSCULAR HEMOGLOBIN 24 pg (25-35); MEAN CORPUSCULAR HGB CONC 32 g/dL (31-37); MEAN CORPUSCULAR VOLUME 75 fL (79-100); MONO # 0.5 x10^3/uL (0.0-1.1); MONO % 8 % (0-9); NEUT # 4.4 x10^3/uL (1.8-7.7); NEUT % 67 % (31-73); PLATELET COUNT 339 x10^3/uL (140-400); RED BLOOD COUNT 3.71 x10^6/uL (3.50-5.40); RED CELL DISTRIBUTION WIDTH 22.4 % (11.5-14.5); WHITE BLOOD COUNT 6.7 x10^3/uL (4.0-11.0)
[2020-02-05 18:22] LABS: BILIRUBIN,URINE NEGATIVE (NEG); CLARITY,URINE CLEAR; COLOR,URINE YELLOW; NITRITE,URINE NEGATIVE (NEG); PROTEIN,URINE NEGATIVE (NEG-TRACE); UROBILINOGEN,URINE 0.2 mg/dL (0.2 mg/dL)
[2020-02-05 18:27] LABS: BACTERIA,URINE 0 /HPF (0-FEW); RBC,URINE 0 /HPF (0-2); WBC,URINE OCC /HPF (0-4)
[2020-02-05 18:29] LABS: CALCIUM 8.9 mg/dL (8.5-10.1); CREATININE 0.8 mg/dL (0.6-1.0); GFR 85.1; POTASSIUM 3.6 mmol/L (3.5-5.1)
[2020-02-05 18:30] LABS: BARBITURATES NEG (NEG); BENZODIAZEPINES NEG (NEG); CANNABINOIDS POS (NEG); COCAINE NEG (NEG); METHADONE NEG (NEG); OPIATES NEG (NEG); PHENCYCLIDINE NEG (NEG)
[2020-02-05] MEDS ORDERED: cloNIDine HCL 0.1 MG TABLET PO ONE (18:30)
[2020-02-05 18:34] LABS: AMPHETAMINE/METHAMPHETAMINE NEG (NEG)
[2020-02-05 18:43] LABS: ALBUMIN 3.8 g/dL (3.4-5.0); ALBUMIN/GLOBULIN RATIO 1.3 (1.0-1.7); MAGNESIUM 2.5 mg/dL (1.8-2.4); TOTAL BILIRUBIN 0.3 mg/dL (0.2-1.0); TOTAL PROTEIN 6.7 g/dL (6.4-8.2)
[2020-02-05 18:48] LABS: INFLUENZA A PATIENT NEGATIVE (NEGATIVE); INFLUENZA B PATIENT NEGATIVE (NEGATIVE)
--- NOTE | 2020-02-05 18:55 | RAD ---
Examination: CT HEAD AND CERVICAL SPINE WO History: Reason: neck pain. weakness / Spl. Instructions: / History: Comparison/Correlation: None Findings: Axial images of the head and cervical spine were obtained without contrast. Sagittal and coronal reformatted images of the cervical spine were provided. Atrophy is present. Chronic ischemic changes white matter. No intracranial hemorrhage, midline shift, or mass effect. Cranial vault is unremarkable. Spinal rods and associated screws are present along the posterior aspect of the cervical spine. Left-sided screws associated with a round extend from C3 to C5 and on the right, screws are present from C3 to C6. Bilateral laminectomy from C4 to C6 noted. Atlantoaxial joint is unremarkable and is present. C2-3 disc space fusion is present. Fusion of facet joints also seen at C2-3. This may be developmental. C4-5 fusion is present. Correlate with medical history. Severe disc space narrowing is present from C5 to C7. Right C4-5 neural foraminal narrowing is evident. Soft tissues of neck are unremarkable. Impression: No intracranial hemorrhage. Degenerative changes of the cervical spine. Postoperative findings of the cervical spine. No acute process. PQRS Compliance Statement: One or more of the following individualized dose reduction techniques were utilized for this examination: 1. Automated exposure control 2. Adjustment of the mA and/or kV according to patient size 3. Use of iterative reconstruction technique Electronically signed by: Faraz Shah MD (02/05/2020 6:53 PM) [facility]
--- NOTE | 2020-02-05 18:56 | RAD ---
Examination: PORTABLE CHEST 1V History: Reason: fever / Spl. Instructions: / History: Comparison/Correlation: 06/19/2019 2V chest x-ray exam Findings: Portable upright frontal view of the chest was obtained. Postoperative findings of the cervical spine noted. Heart size and pulmonary vessels are normal. No infiltrate or effusions. Spinal stimulator leads are present overlying the lower thoracic spine. No pneumothorax. Impression: No active disease. Electronically signed by: Faraz Shah MD (02/05/2020 6:54 PM) [facility]
[2020-02-05 19:17] LABS: ANISOCYTOSIS MOD; HYPOCHROMIA SLIGHT; MICROCYTOSIS SLIGHT; PLT ESTIMATE ADEQUATE (ADEQUATE); POIKILOCYTOSIS SLIGHT
[2020-02-05 19:20] LABS: OVALOCYTES FEW; SCHISTOCYTES OCC
--- NOTE | 2020-02-05 20:25 | PHYS DOC ---
Past Medical History Past Medical History: Arthritis, Asthma, Hypertension Additional Past Medical Histor: CARDIAC STENT PLACED 2015, ulcer, chronic back pain Past Surgical History: Other Additional Past Surgical Histo: LEFT GREAT TOE CORRECTION, "BACK SURGERY", R BREAST BIOPSY, EXPLORATORY ABD Smoking Status: Never Smoker Alcohol Use: None Drug Use: None General Adult EDM: Chief Complaint: GENERALIZED BODY ACHES HPI: HPI: Patient is a 74 year old female with a history of hypertension, kicking leg syndrome, who presents to the ED today complaining of generalized weakness, patient states symptoms began 10 this morning. Denies any chest pain, shortness of breath. Denies any fever, coughing, congestion. She states she is on a new medicine called Benzotropin for kicking leg syndrome. She states actually the medicine has been helping with her kicking leg syndrome. She also states she had cervical fusion in August and is experiencing pain to her posterior neck. Denies any injury. Denies any numbness or tingling to bilateral upper extremit ies. Review of Systems: Review of Systems: Constitutional: Denies fever or chills. [] Eyes: Denies change in visual acuity. [] HENT: Denies nasal congestion or sore throat. [] Respiratory: Denies cough or shortness of breath. [] Cardiovascular: Denies chest pain or edema. [] GI: Denies abdominal pain, nausea, vomiting, bloody stools or diarrhea. [] : Denies dysuria. [] Musculoskeletal: Denies back pain or joint pain. [] Integument: Denies rash. [] Neurologic: Reports generalized weakness. Denies headache, focal weakness or sensory changes. [] Psychiatric: Denies depression or anxiety. [] Heart Score: Risk Factors: Risk Factors: DM, Current or recent (<one month) smoker, HTN, HLP, family history of CAD, obesity. Risk Scores: Score 0 - 3: 2.5% MACE over next 6 weeks - Discharge Home Score 4 - 6: 20.3% MACE over next 6 weeks - Admit for Clinical Observation Score 7 - 10: 72.7% MACE over next 6 weeks - Early Invasive Strategies Current Medications: Current Medications Medications (Trade) Dose Ordered Sig/Danilo Start Time Stop Time Status Last Admin Dose Admin Acetaminophen (Tylenol) 1,000 mg 1X ONCE 02/05/20 17:30 02/05/20 17:31 DC 02/05/20 17:30 1,000 MG Clonidine HCl (Catapres) 0.2 mg 1X ONCE 02/05/20 18:30 02/05/20 18:31 DC 02/05/20 18:42 0.2 MG Sodium Chloride 1,000 ml @ 1,000 mls/hr 1X ONCE 02/05/20 17:30 02/05/20 18:29 DC 02/05/20 17:30 1,000 MLS/HR Allergies: Allergies: Allergies Coded Allergies Type Severity Reaction Last Updated Verified aspirin Allergy Intermediate 07/11/16 Yes codeine Allergy Intermediate 07/11/16 Yes diazepam Allergy Intermediate 07/11/16 Yes ibuprofen Allergy Intermediate 07/11/16 Yes ketorolac Allergy Intermediate Shortness of Air 10/18/17 Yes morphine Allergy Intermediate takes ULTRAM at home 10/23/16 Yes promethazine Allergy Intermediate 07/11/16 Yes Physical Exam: PE: Constitutional: Well developed, well nourished, no acute distress, non-toxic appearance. [] HENT: Normocephalic, atraumatic, bilateral external ears normal, oropharynx moist, no oral exudates, nose normal. [] Eyes: PERRLA, EOMI, conjunctiva normal, no discharge. [] Neck: Surgical incision on posterior cervical spine is well approximated, no signs of infection, normal range of motion, no tenderness, supple, no stridor. [] Cardiovascular:Heart rate regular rhythm, no murmur [] Lungs & Thorax: Bilateral breath sounds clear to auscultation [] Abdomen: Bowel sounds normal, soft, no tenderness, no masses, no pulsatile masses. [] Skin: Warm, dry, no erythema, no rash. [] Back: No tenderness, no CVA tenderness. [] Extremities: No tenderness, no cyanosis, no clubbing, ROM intact, no edema. [] Neurologic: Alert and oriented X 3, normal motor function, normal sensory function, no focal deficits noted. [] Psychologic: Affect normal, judgement normal, mood normal. [] Current Patient Data: Labs: Laboratory Tests Test 02/05/20 17:40 White Blood Count 6.7 x10^3/uL (4.0-11.0) Red Blood Count 3.71 x10^6/uL (3.50-5.40) Hemoglobin 8.8 g/dL (12.0-15.5) L Hematocrit 27.7 % (36.0-47.0) L Mean Corpuscular Volume 75 fL (79-100) L Mean Corpuscular Hemoglobin 24 pg (25-35) L Mean Corpuscular Hemoglobin Concent 32 g/dL (31-37) Red Cell Distribution Width 22.4 % (11.5-14.5) H Platelet Count 339 x10^3/uL (140-400) Neutrophils (%) (Auto) 67 % (31-73) Lymphocytes (%) (Auto) 23 % (24-48) L Monocytes (%) (Auto) 8 % (0-9) Eosinophils (%) (Auto) 2 % (0-3) Basophils (%) (Auto) 1 % (0-3) Neutrophils # (Auto) 4.4 x10^3/uL (1.8-7.7) Lymphocytes # (Auto) 1.5 x10^3/uL (1.0-4.8) Monocytes # (Auto) 0.5 x10^3/uL (0.0-1.1) Eosinophils # (Auto) 0.1 x10^3/uL (0.0-0.7) Basophils # (Auto) 0.1 x10^3/uL (0.0-0.2) Platelet Estimate Adequate (ADEQUATE) Hypochromasia Slight Poikilocytosis Slight Anisocytosis Mod Microcytosis Slight Ovalocytes Few Schistocytes Occ Urine Collection Type Unknown Urine Color Yellow Urine Clarity Clear Urine pH 7.0 (<5.0-8.0) Urine Specific [place] 1.010 (1.000-1.030) Urine Protein Negative mg/dL (NEG-TRACE) Urine Glucose (UA) Negative mg/dL (NEG) Urine Ketones (Stick) Negative mg/dL (NEG) Urine Blood Negative (NEG) Urine Nitrite Negative (NEG) Urine Bilirubin Negative (NEG) Urine Urobilinogen Dipstick 0.2 mg/dL (0.2 mg/dL) Urine Leukocyte Esterase Negative (NEG) Urine RBC 0 /HPF (0-2) Urine WBC Occ /HPF (0-4) Urine Squamous Epithelial Cells Few /LPF Urine Bacteria 0 /HPF (0-FEW) Sodium Level 144 mmol/L (136-145) Potassium Level 3.6 mmol/L (3.5-5.1) Chloride Level 106 mmol/L (98-107) Carbon Dioxide Level 26 mmol/L (21-32) Anion Gap 12 (6-14) Blood Urea Nitrogen 20 mg/dL (7-20) Creatinine 0.8 mg/dL (0.6-1.0) Estimated GFR (Cockcroft-Gault) 85.1 BUN/Creatinine Ratio 25 (6-20) H Glucose Level 89 mg/dL (70-99) Lactic Acid Level 0.9 mmol/L (0.4-2.0) Calcium Level 8.9 mg/dL (8.5-10.1) Magnesium Level 2.5 mg/dL (1.8-2.4) H Total Bilirubin 0.3 mg/dL (0.2-1.0) Aspartate Amino Transferase (AST) 13 U/L (15-37) L Alanine Aminotransferase (ALT) 24 U/L (14-59) Alkaline Phosphatase 240 U/L (46-116) H Creatine Kinase 96 U/L (26-192) Creatine Kinase MB (Mass) 1.3 ng/mL (0.0-3.6) Creatine Kinase MB Relative Index 1.4 % (0-4) Troponin I Quantitative < 0.017 ng/mL (0.000-0.055) OD-Myv-X-Type Natriuretic Peptide 312 pg/mL (0-124) H Total Protein 6.7 g/dL (6.4-8.2) Albumin 3.8 g/dL (3.4-5.0) Albumin/Globulin Ratio 1.3 (1.0-1.7) Procalcitonin < 0.10 ng/mL (0.00-0.10) Thyroid Stimulating Hormone (TSH) 0.180 uIU/mL (0.358-3.74) L Urine Opiates Screen Neg (NEG) Urine Methadone Screen Neg (NEG) Urine Barbiturates Neg (NEG) Urine Phencyclidine Screen Neg (NEG) Urine Amphetamine/Methamphetamine Neg (NEG) Urine Benzodiazepines Screen Neg (NEG) Urine Cocaine Screen Neg (NEG) Urine Cannabinoids Screen Pos (NEG) Urine Ethyl Alcohol Neg (NEG) Influenza Type A Antigen Negative (NEGATIVE) Influenza Type B Antigen Negative (NEGATIVE) Laboratory Tests 02/05/20 17:40 Laboratory Tests 02/05/20 17:40 Vital Signs: Vital Signs Date Time Temp Pulse Resp B/P (MAP) Pulse Ox O2 Delivery O2 Flow Rate FiO2 02/05/20 19:31 68 183/81 (115) 02/05/20 18:00 98.8 100 98.8 02/05/20 17:20 18 EKG: EKG: [] Radiology/Procedures: Radiology/Procedures: []PROCEDURE: CT HEAD AND CERVICAL SPINE WO Examination: CT HEAD AND CERVICAL SPINE WO History: Reason: neck pain. weakness / Spl. Instructions: / History: Comparison/Correlation: None Findings: Axial images of the head and cervical spine were obtained without contrast. Sagittal and coronal reformatted images of the cervical spine were provided. Atrophy is present. Chronic ischemic changes white matter. No intracranial hemorrhage, midline shift, or mass effect. Cranial vault is unremarkable. Spinal rods and associated screws are present along the posterior aspect of the cervical spine. Left-sided screws associated with a round extend from C3 to C5 and on the right, screws are present from C3 to C6. Bilateral laminectomy from C4 to C6 noted. Atlantoaxial joint is unremarkable and is present. C2-3 disc space fusion is present. Fusion of facet joints also seen at C2-3. This may be developmental. C4-5 fusion is present. Correlate with medical history. Severe disc space narrowing is present from C5 to C7. Right C4-5 neural foraminal narrowing is evident. Soft tissues of neck are unremarkable. Impression: No intracranial hemorrhage. Degenerative changes of the cervical spine. Postoperative findings of the cervical spine. No acute process. PQRS Compliance Statement: One or more of the following individualized dose reduction techniques were utilized for this examination: 1. Automated exposure control 2. Adjustment of the mA and/or kV according to patient size 3. Use of iterative reconstruction technique Electronically signed by: Faraz Mcqueen MD (02/05/2020 6:53 PM) [facility] DICTATED and SIGNED BY: FARAZ MCQUEEN MD DATE: 02/05/20 [id number] PROCEDURE: PORTABLE CHEST 1V Examination: PORTABLE CHEST 1V History: Reason: fever / Spl. Instructions: / History: Comparison/Correlation: 06/19/2019 2V chest x-ray exam Findings: Portable upright frontal view of the chest was obtained. Postoperative findings of the cervical spine noted. Heart size and pulmonary vessels are normal. No infiltrate or effusions. Spinal stimulator leads are present overlying the lower thoracic spine. No pneumothorax. Impression: No active disease. Electronically signed by: Faraz Mcqueen MD (02/05/2020 6:54 PM) [facility] DICTATED and SIGNED BY: FARAZ MCQUEEN MD DATE: 02/05/20 [id number] Course & Med Decision Making: Course & Med Decision Making Pertinent Labs and Imaging studies reviewed. (See chart for details) This is a 74-year-old female patient presenting to the ED today complaining of generalized weakness that began today. She is also complaining of posterior neck pain, she had a cervical fusion in August 2019. CT of the head and cervical spine are negative for any acute findings, chest x- ray is negative, CBC with hemoglobin of 8.8, hematocrit 27.7, patient reports history of chronic anemia, denies any bleeding. Urine analysis negative for infection, CMP with no acute findings, troponin is normal, CK is normal. Patient was discharged to home. Follow-up with her PCP. Instructed to contact her PCP tomorrow and help with the PCP no she is feeling weak with the introduction of benzotropon Dragon Disclaimer: Dragon Disclaimer: This electronic medical record was generated, in whole or in part, using a voice recognition dictation system. Departure Departure Impression: Primary Impression: Generalized weakness Disposition: 01 DC HOME SELF CARE/HOMELESS Condition: STABLE Referrals: Shivani AGUIRRE MD (PCP) Call his office tomorrow and set up a follow-up appointment Patient Instructions: Weakness, [id number] Additional Instructions: You were evaluated in the emergency room, your work-up was negative for any acute findings. Please contact your doctor tomorrow and let him know you were in the emergency room today feeling weak. Do not take your benzotropin today. Talk to your doctor tomorrow before you resume this medicine. DANNY DREW APRN Feb 05, 2020 20:25
[2020-02-05 20:30] VITALS: BP 177/84
--- NOTE | 2020-02-06 09:14 | EKG ---
[facility] [address] [place] [address] Test Date: 2020-02-05 Test Time: 20:53:26 Pat Name: DANIELA PANG Department: Room: Gender: [employer]: : 1945 Requested By: DANNY DREW Order Number: [id number] Reading MD: Measurements Intervals [place] Rate: 83 P: 12 AR: 144 QRS: -3 QRSD: 84 T: 40 QT: 410 QTc: 488 Interpretive Statements SINUS RHYTHM ATRIAL PREMATURE COMPLEX(ES) LEFTWARD AXIS PROLONGED QT NO SPECIFIC ECG ABNORMALITIES RI6.01 Compared to ECG 02/05/2020 17:59:24 Left-axis deviation now present Prolonged QT interval now present Myocardial infarct finding no longer present T-wave abnormality no longer present
--- NOTE | 2020-02-08 12:59 | NUR ---
IP: Informed pt of negative COVID results. Pt verbalized understanding.
== END 2020-02-05 20:35 | disposition home or self-care (01) ==
LOC: ER 16:47
DX: R53.1 Weakness (principal); Z20.828 Contact with and (suspected) exposure to other viral communicable diseases; I10 Essential (primary) hypertension; J45.909 Unspecified asthma, uncomplicated; G89.29 Other chronic pain; Z88.6 Allergy status to analgesic agent; Z88.5 Allergy status to narcotic agent; Z88.8 Allergy status to other drugs, medicaments and biological substances
CPT/HCPCS: 36415; 70450; 71045; 72125; 80053; 80307; 81001; 82553; 83605; 83735; 83880; 84145; 84443; 84484; 85025; 87040; 87804; 93005; 96360; 99285; C9803; J7030; U0003

== ENCOUNTER 2020-02-29 13:59 | Emergency (ER) | payer OTHER ==
[~2020-02-29] VITALS: Ht 162.6 cm; Wt 65.4 kg
[2020-02-29] MEDS ORDERED: methylPREDNISolone SOD SUCC PF 125 MG/2 ML VIAL. IV ONE (14:30)
--- NOTE | 2020-02-29 14:37 | PHYS DOC ---
Past Medical History Past Medical History: Arthritis, Asthma, Hypertension, Sciatica Additional Past Medical Histor: CARDIAC STENT PLACED 2015, ulcer, chronic back pain Past Surgical History: Other Additional Past Surgical Histo: LEFT GREAT TOE CORRECTION, "BACK SURGERY", R BREAST BIOPSY, EXPLORATORY ABD Smoking Status: Never Smoker Alcohol Use: None Drug Use: None General Adult EDM: Chief Complaint: WEAKNESS/GENERALIZED HPI: HPI: Patient is a 74 year old female with a history of hypertension, asthma, chronic low back pain with a neurostimulator who presents to the ED today with multiple complaints. Patient is complaining of generalized weakness and fatigue that began this morning. He is also complaining of 7 out of 10 chronic low back pain nonradiating in nature that she feels is worse this morning. She states she took 1 hydrocodone with no relief. She describes the pain as sharp and int ermittent worse obstructive sleeping positions. Denies any known injury. Denies any nausea or vomiting. Review of Systems: Review of Systems: Constitutional: Reports generalized weakness and fatigue. Denies fever or chills. [] Eyes: Denies change in visual acuity. [] HENT: Denies nasal congestion or sore throat. [] Respiratory: Denies cough or shortness of breath. [] Cardiovascular: Denies chest pain or edema. [] GI: Denies abdominal pain, nausea, vomiting, bloody stools or diarrhea. [] : Denies dysuria. [] Musculoskeletal: Reports low back pain Integument: Denies rash. [] Neurologic: Denies headache, focal weakness or sensory changes. [] Psychiatric: Denies depression or anxiety. [] Heart Score: Risk Factors: Risk Factors: DM, Current or recent (<one month) smoker, HTN, HLP, family history of CAD, obesity. Risk Scores: Score 0 - 3: 2.5% MACE over next 6 weeks - Discharge Home Score 4 - 6: 20.3% MACE over next 6 weeks - Admit for Clinical Observation Score 7 - 10: 72.7% MACE over next 6 weeks - Early Invasive Strategies Current Medications: Current Medications Medications (Trade) Dose Ordered Sig/Danilo Start Time Stop Time Status Last Admin Dose Admin Methylprednisolone Sodium Succinate (SOLU-Medrol 125MG VIAL) 125 mg 1X ONCE 02/29/20 14:30 02/29/20 14:31 DC Allergies: Allergies: Allergies Coded Allergies Type Severity Reaction Last Updated Verified aspirin Allergy Intermediate 07/11/16 Yes codeine Allergy Intermediate 07/11/16 Yes diazepam Allergy Intermediate 07/11/16 Yes ibuprofen Allergy Intermediate 07/11/16 Yes ketorolac Allergy Intermediate Shortness of Air 10/18/17 Yes morphine Allergy Intermediate takes ULTRAM at home 10/23/16 Yes promethazine Allergy Intermediate 07/11/16 Yes Physical Exam: PE: Constitutional: Tired appearing patient. Well developed, well nourished, no acute distress, non-toxic appearance. [] HENT: Normocephalic, atraumatic, bilateral external ears normal, oropharynx moist, no oral exudates, nose normal. [] Eyes: PERRLA, EOMI, conjunctiva normal, no discharge. [] Neck: Normal range of motion, no tenderness, supple, no stridor. [] Cardiovascular:Heart rate regular rhythm, no murmur [] Lungs & Thorax: Bilateral breath sounds clear to auscultation [] Abdomen: Bowel sounds normal, soft, no tenderness, no masses, no pulsatile masses. [] Skin: Warm, dry, no erythema, no rash. [] Back: Old healed surgical incisions noted on the lower lumbar spine. Neurostimulator noted on the left lumbar spine. No midline lumbar spine tenderness, no CVA tenderness. [] Extremities: No tenderness, no cyanosis, no clubbing, ROM intact, no edema. [] Neurologic: Alert and oriented X 3, normal motor function, normal sensory function, no focal deficits noted. Cranial nerves II through XII intact Psychologic: Affect normal, judgement normal, mood normal. [] Current Patient Data: Vital Signs: Vital Signs Date Time Temp Pulse Resp B/P (MAP) Pulse Ox O2 Delivery O2 Flow Rate FiO2 02/29/20 14:16 98.9 89 20 210/79 (122) 96 Room Air 98.9 EKG: EK interpreted by Dr. Cat sinus rhythm HR 61 no STEMI[] Radiology/Procedures: Radiology/Procedures: PROCEDURE: CT HEAD WO CONTRAST EXAMINATION: CT HEAD/BRAIN WO (CT HEAD WITHOUT IV CONTRAST) CLINICAL HISTORY: Weakness TECHNIQUE: Serial axial images without IV contrast were obtained from the vertex to the foramen magnum. CT Dose Reduction Employed: One or more of the following individualized dose reduction techniques were utilized for this examination: 1. Automated exposure control 2. Adjustment of the mA and/or kV according to patient size 3. Use of iterative reconstruction technique. COMPARISON: 02/05/2020 FINDINGS: Post-operative change: None. Acute change: No evidence of an acute infarct or other acute parenchymal process. Hemorrhage: No evidence of acute intracranial hemorrhage. Mass Lesion / Mass Effect: There is no evidence of an intracranial mass or extraaxial fluid collection. No significant mass effect. Chronic change: Atherosclerotic calcification of the bilateral carotid siphons. Parenchyma: There is mild generalized volume loss. The brain parenchyma is otherwise within normal limits for age. Ventricles: Ventricular enlargement concordant with the degree of parenchymal volume loss. Paranasal sinuses and skull base: The visualized paranasal sinuses are grossly clear. The skull base and imaged soft tissues are unremarkable. IMPRESSION: No evidence of acute intracranial abnormality or significant interval change. Electronically signed by: Italo Harden DO (02/29/2020 3:16 PM) [facility] DICTATED and SIGNED BY: ITALO HARDEN DO DATE: 02/29/20 [id number] 0 PROCEDURE: PORTABLE CHEST 1V XR CHEST 1V Clinical indications: Weakness. COMPARISON: February 05, 2020. Findings: No acute lung infiltrate or pleural effusion or pulmonary edema or lung mass or pneumothorax is seen. The heart size, pulmonary vasculature, mediastinum and both anayeli are stable. Impression: No acute radiographic abnormality is seen. Electronically signed by: King Velasquez MD (02/29/2020 2:40 PM) [id number] DICTATED and SIGNED BY: KING VELASQUEZ MD DATE: 02/29/20 [id number] 0 Course & Med Decision Making: Course & Med Decision Making Pertinent Labs and Imaging studies reviewed. (See chart for details) This is a 74-year-old female patient presented to the ED today complaining of generalized weakness and fatigue since this morning she appears sleepy and reports taking hydrocodone prior to coming to the ED. Also complaining of c hronic low back pain. Patient had a full work-up in the ED, EKG is negative, labs are negative for any acute findings. UA is negative, CT of the head, chest x-ray were all negative for any acute findings. She was discharged home. Follow-up with her doctor in the course of this week. Denise Disclaimer: Denise Disclaimer: This electronic medical record was generated, in whole or in part, using a voice recognition dictation system. Departure Departure Impression: Primary Impression: Chronic back pain Qualified Codes: M54.5 - Low back pain; G89.29 - Other chronic pain Additional Impressions: Generalized weakness Fatigue Qualified Codes: R53.83 - Other fatigue Person under investigation for COVID-19 Disposition: 01 DC HOME SELF CARE/HOMELESS Condition: STABLE Referrals: Shivani AGUIRRE MD (PCP) follow up with your doctor in one week Patient Instructions: Back Pain, Adult, Fatigue, Weakness, [id number] Additional Instructions: You were evaluated in the emergency room, your work-up was negative for any acute findings. Please follow-up with your own doctor in the course of this week. You were tested for COVID-19. Quarantine yourself until you get results from us. You can also follow-up with your doctor for back pain. DANNY DREW MANAGER [employer] Feb 29, 2020 14:37
--- NOTE | 2020-02-29 14:43 | RAD ---
XR CHEST 1V Clinical indications: Weakness. COMPARISON: February 05, 2020. Findings: No acute lung infiltrate or pleural effusion or pulmonary edema or lung mass or pneumothora x is seen. The heart size, pulmonary vasculature, mediastinum and both anayeli are stable. Impression: No acute radiographic abnormality is seen. Electronically signed by: Julio Cesar Velasquez MD (02/29/2020 2:40 PM) [id number]
[2020-02-29 15:10] LABS: BASO % 1 % (0-3); EOS # 0.1 x10^3/uL (0.0-0.7); EOS % 1 % (0-3); HEMATOCRIT 27.9 % (36.0-47.0); HEMOGLOBIN 8.8 g/dL (12.0-15.5); LYMPH # 1.3 x10^3/uL (1.0-4.8); LYMPH % 18 % (24-48); MEAN CORPUSCULAR HEMOGLOBIN 24 pg (25-35); MEAN CORPUSCULAR HGB CONC 32 g/dL (31-37); MEAN CORPUSCULAR VOLUME 74 fL (79-100); MONO # 0.5 x10^3/uL (0.0-1.1); MONO % 8 % (0-9); NEUT # 5.2 x10^3/uL (1.8-7.7); NEUT % 73 % (31-73); PLATELET COUNT 403 x10^3/uL (140-400); RED BLOOD COUNT 3.75 x10^6/uL (3.50-5.40); WHITE BLOOD COUNT 7.1 x10^3/uL (4.0-11.0)
--- NOTE | 2020-02-29 15:18 | RAD ---
EXAMINATION: CT HEAD/BRAIN WO (CT HEAD WITHOUT IV CONTRAST) CLINICAL HISTORY: Weakness TECHNIQUE: Serial axial images without IV contrast were obtained from the vertex to the foramen magnu m. CT Dose Reduction Employed: One or more of the following individualized dose reduction techniques wer e utilized for this examination: 1. Automated exposure control 2. Adjustment of the mA and/or kV ac cording to patient size 3. Use of iterative reconstruction technique. COMPARISON: 02/05/2020 FINDINGS: Post-operative change: None. Acute change: No evidence of an acute infarct or other acute parenchymal process. Hemorrhage: No evidence of acute intracranial hemorrhage. Mass Lesion / Mass Effect: There is no evidence of an intracranial mass or extraaxial fluid collectio n. No significant mass effect. Chronic change: Atherosclerotic calcification of the bilateral carotid siphons. Parenchyma: There is mild generalized volume loss. The brain parenchyma is otherwise within normal li mits for age. Ventricles: Ventricular enlargement concordant with the degree of parenchymal volume loss. Paranasal sinuses and skull base: The visualized paranasal sinuses are grossly clear. The skull base and imaged soft tissues are unremarkable. IMPRESSION: No evidence of acute intracranial abnormality or significant interval change. Electronically signed by: Italo Oconnor DO (02/29/2020 3:16 PM) [place]
[2020-02-29 15:19] LABS: PROTHROMBIN TIME PATIENT 13.4 SEC (11.7-14.0)
[2020-02-29 15:24] LABS: CALCIUM 9.1 mg/dL (8.5-10.1); CREATININE 0.7 mg/dL (0.6-1.0); GFR 99.2; POTASSIUM 3.9 mmol/L (3.5-5.1)
[2020-02-29 15:25] LABS: ACETAMIN 3.68 mcg/ml (10-30); SALIC < 2.8 mg/dL (2.8-20.0)
[2020-02-29 15:26] LABS: ETHANOL < 10 mg/dL (0-10)
[2020-02-29 15:27] LABS: ANISOCYTOSIS MOD; PLT ESTIMATE ADEQUATE (ADEQUATE)
[2020-02-29 15:28] LABS: HYPOCHROMIA MOD; MICROCYTOSIS MOD; POLYCHROMASIA SLIGHT
[2020-02-29 15:29] LABS: ALBUMIN 3.7 g/dL (3.4-5.0); ALBUMIN/GLOBULIN RATIO 1.2 (1.0-1.7); MAGNESIUM 2.1 mg/dL (1.8-2.4); TOTAL BILIRUBIN 0.3 mg/dL (0.2-1.0); TOTAL PROTEIN 6.8 g/dL (6.4-8.2)
[2020-02-29 16:15] LABS: BARBITURATES NEG (NEG); BENZODIAZEPINES NEG (NEG); CANNABINOIDS POS (NEG); COCAINE NEG (NEG); METHADONE NEG (NEG); OPIATES POS (NEG); PHENCYCLIDINE NEG (NEG)
[2020-02-29 16:16] LABS: BILIRUBIN,URINE NEGATIVE (NEG); CLARITY,URINE CLEAR; COLOR,URINE YELLOW; NITRITE,URINE NEGATIVE (NEG); PROTEIN,URINE NEGATIVE (NEG-TRACE)
[2020-02-29 16:18] LABS: AMPHETAMINE/METHAMPHETAMINE NEG (NEG)
[2020-02-29 16:23] LABS: BACTERIA,URINE 0 /HPF (0-FEW)
[2020-02-29 16:24] LABS: RBC,URINE 0 /HPF (0-2); WBC,URINE RARE /HPF (0-4)
[2020-02-29 17:00] VITALS: BP 177/85
== END 2020-02-29 17:26 | disposition home or self-care (01) ==
LOC: ER 13:59
DX: G89.29 Other chronic pain (principal); M54.5 Low back pain; Z20.828 Contact with and (suspected) exposure to other viral communicable diseases; R53.83 Other fatigue; R53.1 Weakness; M19.90 Unspecified osteoarthritis, unspecified site; J45.909 Unspecified asthma, uncomplicated; I10 Essential (primary) hypertension; Z98.890 Other specified postprocedural states; Z88.6 Allergy status to analgesic agent; Z88.5 Allergy status to narcotic agent; Z88.8 Allergy status to other drugs, medicaments and biological substances
CPT/HCPCS: 36415; 70450; 71045; 80053; 80307; 80329; 81001; 83690; 83735; 83880; 84443; 84484; 85025; 85610; 96374; 99285; G0480; J2930; U0003; C9803

== ENCOUNTER → 2020-03-23 | Outpatient (CLI) | payer OTHER ==
[2020-02-05 20:30] VITALS: BP_SYST 177
[2020-02-29 17:00] VITALS: BP_DIAS 85
[~2020-03-23] MED LIST changes: +LISI10TA16 PO; -LISI10TA2 PO
--- NOTE | 2020-03-23 16:05 | KCIC ---
MRI of the cervical spine without contrast 03/23/2020 CLINICAL HISTORY: Neck pain. Paresthesias involving both hands. History of previous cervical fusion. TECHNIQUE: Unenhanced T1-weighted, T2-weighted and inversion recovery sagittal and gradient echo and T2-weighted axial images of the cervical spine were obtained. FINDINGS: Comparison study is dated 07/12/2016. Additional comparison is made to a CT scan of the cerv ical spine dated 02/05/2020. Mild lateral curvature of the cervical spine is seen convex to the left. There is reversal of the nor mal cervical lordosis. The patient is post laminectomy and posterolateral fusion using pedicle screws and stabilizing rods which extend from C3 to C6 on the right and C4 to C6 on the left. The patient a ppears to be post anterior discectomy and fusion using bone graft material at C4-5. Degenerative sign al changes and loss of height are seen involving the remaining discs of the cervical spine. Degenerat jose r signal changes are seen within the marrow surrounding these discs. Symmetric paracentral areas of abnormally increased signal intensity are seen involving the cervical spinal cord at the C4 level wh ich measure 3 to 4 mm in size and are consistent with areas of myelomalacia. No additional area of ab normal signal intensity is seen involving the cervical spinal cord. At the C2-3 disc space there is a minimal generalized disc bulge. Degenerative changes are seen invol ving the uncovertebral and facet joints, right greater than left. These findings do not result in sig nificant central spinal canal stenosis. Mild to moderate right greater than left neural foraminal destiney nosis is seen. At the C3-4 disc space there is a mild generalized disc bulge. Degenerative changes are seen involvin g the uncovertebral and facet joints, left greater than right. These findings result in mild central spinal canal stenosis without evidence of cord impingement. Mild to moderate left greater than right neural foraminal stenosis is seen. At the C4-5 level degenerative changes are seen involving the uncovertebral and facet joints bilatera lly. These findings do not result in significant central spinal canal stenosis. Mild bilateral neural foraminal stenosis is seen. At the C5-6 disc space there is a mild generalized disc bulge. Degenerative changes are seen involvin g the uncovertebral and facet joints, right greater than left. These findings do not result in signif icant central spinal canal stenosis. Mild right neural foraminal stenosis is seen. The left neural fo ramen is patent. At the C6-7 disc space there is a mild generalized disc bulge. Degenerative changes are seen involvin g the uncovertebral and facet joints bilaterally. These findings do not result in significant central spinal canal stenosis. Mild to moderate bilateral neural foraminal stenosis is seen. At the C7-T1 disc space there is a mild generalized disc bulge. Degenerative changes are seen involvi ng the facet joints bilaterally. These findings do not result in significant central spinal canal or neural foraminal stenosis. IMPRESSION: 1. Postsurgical changes are seen involving the cervical spine as discussed above. 2. Areas of myelomalacia are seen involving the cervical spinal cord centered at the C4 level. 3. Degenerative changes are seen throughout the cervical spine. These findings result in mild central spinal canal stenosis at C3-4 without evidence of cord impingement. Multilevel neural foraminal sten osis is seen as discussed above. Electronically signed by: Dante Coronado MD (03/23/2020 4:03 PM) [id number]
--- NOTE | 2020-03-26 17:25 | KCIC ---
Bilateral digital screening mammograms and tomosynthesis Reason for examination: Routine screening. Comparisons: No priors available. Current exam is a new baseline. Routine CC and MLO digital views obtained. Interpretation was made with the benefit of CAD. The skin and nipples show no abnormalities. No abnormal lymph nodes are seen. The breast parenchyma i s scattered fibroglandular elements. (Breast density: Category B.) There are no suspicious masses, nathan spicious calcifications or architectural distortions. Benign calcifications. Impression: Negative mammogram. Recommend routine screening. BI-RADS Category 1: Negative. "Our facility is accredited by the [employer] Mammography Program." This patient's information has been entered into a reminder system for the patient to be notified wit h the results of her examination and a target date for the next mammogram. Electronically signed by: Iriwn Bolden MD (03/26/2020 5:23 PM) [id number]
== END ==
LOC: KCIC MRI 12:20
PROVIDERS: ATTEND Family Medicine
DX: Z12.31 Encounter for screening mammogram for malignant neoplasm of breast (principal); M47.812 Spondylosis without myelopathy or radiculopathy, cervical region; M48.02 Spinal stenosis, cervical region; M43.22 Fusion of spine, cervical region
CPT/HCPCS: 72141; 77063; 77067

== ENCOUNTER 2020-03-30 18:42 | Emergency (ER) | payer OTHER ==
[~2020-03-30 18:42] MED LIST changes: -LISI10TA16 PO; +LISI10TA2 PO
== END 2020-03-30 19:03 | disposition left against medical advice (07) ==
LOC: ER 18:42
DX: R20.2 Paresthesia of skin (principal); Z53.21 Procedure and treatment not carried out due to patient leaving prior to being seen by health care provider

== ENCOUNTER → 2020-06-02 | Outpatient (CLI) | payer OTHER ==
[~2020-06-02] MED LIST changes: +LISI10TA16 PO; -LISI10TA2 PO
--- NOTE | 2020-06-03 09:48 | RAD ---
Bilateral lower extremity arterial duplex ultrasound study without comparison for cramping in the leg s, nonpalpable pedal pulses. TECHNIQUE: Real-time grayscale and color and spectral Doppler evaluation of the arteries of the lower extremities is performed. There is multifocal calcified atherosclerosis bilaterally. All vessels are patent. On the right, there is biphasic flow in all interrogated distributions. There is elevated pe ak systolic velocity within the right common femoral artery which could signify stenosis in this dist ribution, though no downstream spectral Doppler changes are evident to corroborate. No other focal ve locity elevations are identified on the right. On the left, all waveforms are biphasic, and there is elevated velocity within the dorsalis pedis artery likely indicative of a high-grade stenosis at this level. No other focal velocity elevations are identified. IMPRESSION: 1. Multifocal calcified atherosclerosis in virtually all arteries, with high-grade stenosis of the le ft dorsalis pedis artery, and possible stenosis of the right common femoral artery based on elevated velocities. Electronically signed by: José Go MD (06/03/2020 9:46 AM) [id number]
== END ==
LOC: US 15:05
PROVIDERS: ATTEND Podiatrist
DX: I70.213 Atherosclerosis of native arteries of extremities with intermittent claudication, bilateral legs (principal)
CPT/HCPCS: 93925

== ENCOUNTER → 2020-09-10 | Outpatient (CLI) | payer OTHER ==
[2020-09-10 10:36] LABS: BASO % 1 % (0-3); EOS # 0.1 x10^3/uL (0.0-0.7); EOS % 2 % (0-3); HEMATOCRIT 36.9 % (36.0-47.0); LYMPH # 1.4 x10^3/uL (1.0-4.8); LYMPH % 29 % (24-48); MEAN CORPUSCULAR HEMOGLOBIN 31 pg (25-35); MEAN CORPUSCULAR HGB CONC 32 g/dL (31-37); MEAN CORPUSCULAR VOLUME 96 fL (79-100); MONO # 0.4 x10^3/uL (0.0-1.1); MONO % 8 % (0-9); NEUT # 2.9 x10^3/uL (1.8-7.7); NEUT % 61 % (31-73); PLATELET COUNT 335 x10^3/uL (140-400); RED BLOOD COUNT 3.86 x10^6/uL (3.50-5.40); RED CELL DISTRIBUTION WIDTH 16.1 % (11.5-14.5); WHITE BLOOD COUNT 4.8 x10^3/uL (4.0-11.0)
== END ==
LOC: LAB 10:13
PROVIDERS: ATTEND Family Medicine
DX: R53.1 Weakness (principal); D50.9 Iron deficiency anemia, unspecified
CPT/HCPCS: 36415; 82607; 83540; 83550; 85025

== ENCOUNTER 2020-11-18 11:26 | Emergency (ER) | payer OTHER ==
[~2020-11-18] VITALS: Ht 162.6 cm; Wt 68.0 kg
[2020-11-18 13:23] VITALS: BP 180/80
--- NOTE | 2020-11-18 14:07 | RAD ---
Right knee 3 views, right hip 2 views. HISTORY: Fell, limited mobility Right knee 3 views were taken of the right knee. There is osteoarthritis with joint space narrowing in the jung lofemoral compartment and medial joint compartment with hypertrophic spurring. There is no acute frac ture or joint effusion. Right hip AP view was taken of the pelvis to include the right hip with an additional lateral view of the right hip. There is no pelvic fracture. Patient had previous lower lumbar spine fusion. A left hip fractur e is not evident. There is no right hip fracture or acute osseous abnormality in the right hip. IMPRESSION: 1. No pelvic fracture noted. 2. No right hip fracture noted. 3. Osteoarthritis right knee, no right knee fracture noted. Electronically signed by: Yoni Smith MD (11/18/2020 2:04 PM) [facility]
--- NOTE | 2020-11-18 14:47 | PHYS DOC ---
Past Medical History Past Medical History: Arthritis, Asthma, Hypertension, Sciatica Additional Past Medical Histor: CARDIAC STENT PLACED 2015, ulcer, chronic back pain (MARITASukhwinderDANNY Foley RADIOACTIVE WASTE DISPOSAL DISPATCHER) Past Surgical History: No Surgical History Additional Past Surgical Histo: LEFT GREAT TOE CORRECTION, "BACK SURGERY", R BREAST BIOPSY, EXPLORATORY ABD (DANNY DREW Og RADIOACTIVE WASTE DISPOSAL DISPATCHER) Smoking Status: Never Smoker Alcohol Use: None Drug Use: None (MANIDANNY ALVARADO RADIOACTIVE WASTE DISPOSAL DISPATCHER) General Adult EDM: Chief Complaint: HIP PAIN HPI: HPI: Patient is a 75 year old female who presents to the ED today complaining of 5 out of 10 right hip and right knee pain, symptoms began last night after she slid out of her rocking chair and fell landing on her right knee. Patient denies any loss of consciousness. Patient denies any neck pain. Denies hitting her head on the ground. States most of her pain is on ambulation but reports being able to get up and ambulate. She states she uses a cane chronically. Denies anything specifically relieving her pain. Describes her pain as sharp and intermittent (VIKIDANNY Foley RADIOACTIVE WASTE DISPOSAL DISPATCHER) Review of Systems: Review of Systems: Constitutional: Denies fever or chills. [] Musculoskeletal: Reports right knee and right hip pain. Denies any back pain Integument: Denies rash. [] Neurologic: Denies headache, focal weakness or sensory changes. [] [] Psychiatric: Denies depression or anxiety. [] (MANIDANNY ALVARADO RADIOACTIVE WASTE DISPOSAL DISPATCHER) Heart Score: C/O Chest Pain: N/A Risk Factors: Risk Factors: DM, Current or recent (<one month) smoker, HTN, HLP, family history of CAD, obesity. Risk Scores: Score 0 - 3: 2.5% MACE over next 6 weeks - Discharge Home Score 4 - 6: 20.3% MACE over next 6 weeks - Admit for Clinical Observation Score 7 - 10: 72.7% MACE over next 6 weeks - Early Invasive Strategies (DANNY DREW RADIOACTIVE WASTE DISPOSAL DISPATCHER) Allergies: Allergies: Allergies Coded Allergies Type Severity Reaction Last Updated Verified aspirin Allergy Intermediate 07/11/16 Yes codeine Allergy Intermediate 07/11/16 Yes diazepam Allergy Intermediate 07/11/16 Yes ibuprofen Allergy Intermediate 07/11/16 Yes ketorolac Allergy Intermediate Shortness of Air 8/2/18 Yes morphine Allergy Intermediate takes ULTRAM at home 10/23/16 Yes promethazine Allergy Intermediate 07/11/16 Yes (DANNY DREW RADIOACTIVE WASTE DISPOSAL DISPATCHER) Physical Exam: PE: Constitutional: Well developed, well nourished, no acute distress, non-toxic appearance. [] Skin: Warm, dry, no erythema, no rash. [] Back: No tenderness, no CVA tenderness. [] Extremities: Right knee with no obvious deformity, right hip with no obvious deformity. No tenderness on palpation of the knee or the hip. Full passive range of motion to the right hip including internal rotation, external rotation, extension and flexion of the hip. Full range of motion to the right knee, negative Consuelo sign, negative Mukund sign, negative anterior posterior drawer sign. +2 right pedal pulse. Cap refill less than 2 seconds to the right lower extremity Neurologic: Alert and oriented X 3, normal motor function, normal sensory function, no focal deficits noted. [] Psychologic: Affect normal, judgement normal, mood normal. [] (DANNY DREW RADIOACTIVE WASTE DISPOSAL DISPATCHER) Current Patient Data: Vital Signs: Vital Signs Date Time Temp Pulse Resp B/P (MAP) Pulse Ox O2 Delivery O2 Flow Rate FiO2 11/18/20 13:23 98.4 16 180/80 100 Room Air 98.4 (DANNY DREW RADIOACTIVE WASTE DISPOSAL DISPATCHER) EKG: EKG: [] (DANNY DREW RADIOACTIVE WASTE DISPOSAL DISPATCHER) Radiology/Procedures: Radiology/Procedures: []PROCEDURE: KNEE RIGHT 3V Right knee 3 views, right hip 2 views. HISTORY: Fell, limited mobility Right knee 3 views were taken of the right knee. There is osteoarthritis with joint space narrowing in the patellofemoral compartment and medial joint compartment with hypertrophic spurring. There is no acute fracture or joint effusion. Right hip AP view was taken of the pelvis to include the right hip with an additional lateral view of the right hip. There is no pelvic fracture. Patient had previous lower lumbar spine fusion. A left hip fracture is not evident. There is no right hip fracture or acute osseous abnormality in the right hip. IMPRESSION: 1. No pelvic fracture noted. 2. No right hip fracture noted. 3. Osteoarthritis right knee, no right knee fracture noted. Electronically signed by: Yoni Smith MD (11/18/2020 2:04 PM) [facility] DICTATED and SIGNED BY: YONI SMITH MD DATE: 11/18/20 [id number] 0 (DANNY DREW APRN) Course & Med Decision Making: Course & Med Decision Making Pertinent Labs and Imaging studies reviewed. (See chart for details) This is a 75-year-old female patient presented to the ED today with right hip and right knee pain that began yesterday after she fell. Right hip x-rays including pelvis as well as right knee x-rays are negative for any acute findings, noted for DJD on the right knee. Discharge to home. Ice elevation encouraged. OTC pain relievers recommended. Follow-up with PCP orthopedic doctor in 1 week if pain persist (DANNY DREW APRN) Course & Med Decision Making I have reviewed and was available for consultation in the emergency department for this patient that was seen by midlevel provider. Agree with plan. Zora Huerta DO (ZORA HUERTA DO) Denise Disclaimer: Denise Disclaimer: This electronic medical record was generated, in whole or in part, using a voice recognition dictation system. (DANNY DREW APRN) Departure Departure Impression: Primary Impression: Fall Qualified Codes: W19.XXXA - Unspecified fall, initial encounter Additional Impressions: Right knee pain Qualified Codes: M25.561 - Pain in right knee Right hip pain Right knee DJD Qualified Codes: M17.11 - Unilateral primary osteoarthritis, right knee Disposition: 01 HOME / SELF CARE / HOMELESS Condition: STABLE Referrals: Shivani AGUIRRE MD (PCP) Follow-up in 1 to 2 weeks RYAN PALENCIA MD Follow-up in 1 to 2 weeks Patient Instructions: Fall Prevention and Home Safety, Hip Pain, Knee Pain, [id number] Additional Instructions: You were seen for right hip and right knee pain, your right hip and right knee x-rays are negative for any acute findings. You have arthritis in your right knee. Try to ice and elevate the affected areas you can take [id number] pain relievers. Please follow-up with orthopedic doctor or your own primary care doctor in 1 week if pain persists DANNY DREW APRN Nov 18, 2020 14:47 ZORA HUERTA DO Nov 18, 2020 16:06
[2020-11-18] MEDS ORDERED: ACETAMINOPHEN 500 MG TABLET PO ONE (15:00)
[2020-11-18] MEDS ORDERED: CYCLOBENZAPRINE 10 MG TABLET. PO ONE (15:00)
== END 2020-11-18 15:15 | disposition home or self-care (01) ==
LOC: ER 11:26
DX: M17.11 Unilateral primary osteoarthritis, right knee (principal); M25.551 Pain in right hip; M25.561 Pain in right knee; M19.90 Unspecified osteoarthritis, unspecified site; J45.909 Unspecified asthma, uncomplicated; I10 Essential (primary) hypertension; Z88.6 Allergy status to analgesic agent; Z88.5 Allergy status to narcotic agent; Z88.8 Allergy status to other drugs, medicaments and biological substances; W07.XXXA Fall from chair, initial encounter; Y93.89 Activity, other specified; Y92.89 Other specified places as the place of occurrence of the external cause; Y99.8 Other external cause status
CPT/HCPCS: 73501; 73562; 99284

== ENCOUNTER → 2020-12-14 | Outpatient (CLI) | payer OTHER ==
[2020-11-18 13:23] VITALS: BP 180/80
--- NOTE | 2020-12-14 18:39 | KCIC ---
EXAM: XR HIP (WITH OR WITHOUT PELVIS) RIGHT 1 VIEW 12/14/2020 11:05 AM CLINICAL INDICATION: Right hip pain for over one month COMPARISON: Right hip radiograph 11/18/2020 TECHNIQUE: 2 views of the pelvis and right hip FINDINGS: The bones are diffusely demineralized. There is no displaced fracture. There is bilateral medial joint space narrowing of the hips with small osteophytes. Bilateral sacroiliac joint fusion. T here is lower lumbar fusion hardware in the spinal stimulator, incompletely evaluated. IMPRESSION: 1. No acute osseous abnormality. 2. Osteopenia. 3. Mild degenerative joint disease of the hips. 4. Fusion of the sacroiliac joints bilaterally. Electronically signed by: Anitra Shook MD (12/14/2020 6:36 PM) [id number]
== END ==
LOC: KCIC 11:02
PROVIDERS: ATTEND Family Medicine
DX: M16.0 Bilateral primary osteoarthritis of hip (principal); M43.28 Fusion of spine, sacral and sacrococcygeal region; M85.88 Other specified disorders of bone density and structure, other site
CPT/HCPCS: 73501

== ENCOUNTER 2021-06-03 14:41 | Emergency (ER) | payer MEDICARE, OTHER ==
[~2021-06-03] VITALS: Ht 165.1 cm; Wt 68.2 kg
[~2021-06-03 14:41] MED LIST changes: +CYCL10TA19 PO; -CYCL10TA2 PO
[2021-06-03 14:42] VITALS: BP 171/82
[2021-06-03] MEDS: HYDROcodone/APAP 5/325MG 1 TAB TABLET PO ONE (15:12)
--- NOTE | 2021-06-03 15:28 | PHYS DOC ---
Past Medical History Past Medical History: Arthritis, Asthma, Hypertension, Sciatica Additional Past Medical Histor: CARDIAC STENT PLACED 2015, ulcer, chronic back pain Past Surgical History: Other Additional Past Surgical Histo: LEFT GREAT TOE CORRECTION, "BACK SURGERY", R BREAST BIOPSY, EXPLORATORY ABD Smoking Status: Never Smoker Alcohol Use: None Drug Use: None General Adult EDM: Chief Complaint: LOWER EXT PAIN HPI: HPI: Patient is a 75 year old female who presents after a fall 4 weeks ago. Patient states that she was at home when she tripped and fell down concrete stairs. Patient states that she was seen at [facility] at that time and had x-rays of her hip and her knee. Patient reports that x-rays were unremarkable. Patient is stating that she is still having large amount of pain to her right knee that is worse with ambulation. Denies all other pain or injury. Patient's been taking Tylenol at home with little relief. Patient has not followed up with her PCP since incident occurred. History of asthma, hypertension. Up-to-date on immunizations. Review of Systems: Review of Systems: ROS At least 10 ROS systems have been reviewed and are negative except as documented in the HPI. General: Negative except as outlined in HPI above. Skin: Negative except as outlined in HPI above. HEENT: Negative except as outlined in HPI above. Neck: Negative except as outlined in HPI above. Respiratory: Negative except as outlined in HPI above.. Cardiovascular: Negative except as outlined in HPI above. Abdomen: Negative except as outlined in HPI above. : Negative except as outlined in HPI above. Back/MSK: Negative except as outlined in HPI above. Neuro: Negative except as outlined in HPI above. Psych: Negative except as outlined in HPI above. Heart Score: C/O Chest Pain: No Risk Factors: Risk Factors: DM, Current or recent (<one month) smoker, HTN, HLP, family history of CAD, obesity. Risk Scores: Score 0 - 3: 2.5% MACE over next 6 weeks - Discharge Home Score 4 - 6: 20.3% MACE over next 6 weeks - Admit for Clinical Observation Score 7 - 10: 72.7% MACE over next 6 weeks - Early Invasive Strategies Current Medications: Current Medications Medications (Trade) Dose Ordered Sig/Danilo Start Time Stop Time Status Last Admin Dose Admin Acetaminophen/ Hydrocodone Bitart (Lortab 5/325) 1 tab 1X ONCE 3/18/22 15:15 06/03/21 15:16 DC 06/03/21 15:12 1 TAB Allergies: Allergies: Allergies Coded Allergies Type Severity Reaction Last Updated Verified aspirin Allergy Intermediate 07/11/16 Yes codeine Allergy Intermediate 07/11/16 Yes diazepam Allergy Intermediate 07/11/16 Yes ibuprofen Allergy Intermediate 07/11/16 Yes ketorolac Allergy Intermediate Shortness of Air 10/18/17 Yes morphine Allergy Intermediate takes ULTRAM at home 10/23/16 Yes promethazine Allergy Intermediate 07/11/16 Yes Physical Exam: PE: Constitutional: Well developed, well nourished, no acute distress, non-toxic appearance. [] HENT: Normocephalic, atraumatic, bilateral external ears normal, oropharynx moist, no oral exudates, nose normal. [] Eyes: PERRLA, EOMI, conjunctiva normal, no discharge. [] Neck: Normal range of motion, no tenderness, supple, no stridor. [] Cardiovascular:Heart rate regular rhythm, no murmur [] Lungs & Thorax: Bilateral breath sounds clear to auscultation [] Abdomen: Bowel sounds normal, soft, no tenderness, no masses, no pulsatile masses. [] Skin: Warm, dry, no erythema, no rash. [] Back: No tenderness, no CVA tenderness. [] Extremities: Right knee tenderness, no swelling noted, range of motion intact, increasing pain with ambulation, no signs of trauma Neurologic: Alert and oriented X 3, normal motor function, normal sensory function, no focal deficits noted. [] Psychologic: Affect normal, judgement normal, mood normal. [] Current Patient Data: Vital Signs: Vital Signs Date Time Temp Pulse Resp B/P (MAP) Pulse Ox O2 Delivery O2 Flow Rate FiO2 06/03/21 15:12 18 100 Room Air 06/03/21 14:42 98.0 89 171/82 (111) 98.0 EKG: EKG: [] Radiology/Procedures: Radiology/Procedures: []XR KNEE 3 VIEWS_RT History: Reason: pain / Spl. Instructions: / History: Technique: 2 views right knee Comparison: November 18, 2020 Findings: No dislocation. No acute fracture. Advanced right knee degenerative changes most prominent within the medial compartment. Basilar calcifications. No significant knee joint effusion. Impression: 1. Advanced right knee DJD, similar compared to prior. Electronically signed by: Shmuel Baker DO (06/03/2021 3:30 PM) [id number] Course & Med Decision Making: Course & Med Decision Making Pertinent Labs and Imaging studies reviewed. (See chart for details) [] 75-year-old female presents after a fall 4 weeks ago. Patient reports she was seen at [facility] at that time for hip and knee pain. Patient states she had no fractures at that time. Patient is reporting she is still having increased pain in her right knee. Tylenol has not been helping with discomfort at home. Patient currently sees Dr. Aguirre and has not had a follow-up appointment with him since incident. Work-up in ER consisted of x-ray of right knee. Patient given hydrocodone for pain. Right knee x-ray is unremarkable. Advised patient that she most likely needs further imaging such as an MRI due to pain not improving. Patient sent home with pain medication. Educated on RICE. Patient verbalizes understanding to discharge instructions and follow-up with Dr. Aguirre on Sunday. Joaquinon Disclaimer: Denise Disclaimer: This electronic medical record was generated, in whole or in part, using a voice recognition dictation system. Departure Departure Impression: Primary Impression: Right knee pain Qualified Codes: M25.561 - Pain in right knee Disposition: HOME / SELF CARE / HOMELESS Condition: STABLE Referrals: Shivani AGUIRRE MD (PCP) Patient Instructions: Knee Pain, [id number] Additional Instructions: You are seen in the emergency room for knee pain. X-ray was unremarkable. Sending you home with pain medication until you can follow-up. You will need to call Dr. Aguirre and make a follow-up appointment for Sunday for further imaging. Rest, use ice to the area, elevate to help with swelling and pain. Return to emergency room with worsening symptoms or concerns. EMERGENCY DEPARTMENT GENERAL DISCHARGE INSTRUCTIONS Thank you for coming to [facility] Emergency Department (ED) today and trusting us with you care. We trust that you had a positive experience in our Emergency Department. If you wish to speak to the department management, you may call the Director at [phone]. YOUR FOLLOW UP INSTRUCTIONS ARE FOLLOWS: 1. Do you have a private Doctor? If you do not have a private doctor, please ask for a resource list of physicians or clinics that may be able to assist you with follow up care. 2. The Emergency Physicain has interpreted your x-rays. The X-Ray specialist will also review them. If there is a change in the findings, you will be notified in 48 hours when at all possible. 3. A lab test or culture has been done, your results will be reviewed and you will be notified if you need a change in treatment. ADDITIONAL INSTRUCTIONS AND INFORMATION: 1. Your care today has been supervised by a physician who is specially trained in emergency care. Many problems require more than one evaluation for a complete diagnosis and treatment. We recommend that you schedule your follow up appointment as recommended to ensure complete treatment of you illness or injury. If you are unable to obtain follow up care and continue to have a problem, or if your condition worsens, we recommend that you return to the ED. 2. We are not able to safely determine your condition over the phone nor are we able to give sound medical advice over the phone. For these safety reasons, if you call for medical advice we will ask you to come to the ED for further evaluation. 3. If you have any questions regarding these discharge instructions please call the ED at [phone]. SAFETY INFORMATION: In the interest of safety, wellness, and injury prevention; we encourage you to wear your sealbelt, if you smoke; quite smoking, and we encourage family to use a protective helmet for bicycling and other sporting events that present an increased risk for head injury. IF YOUR SYMPTOMS WORSEN OR NEW SYMPTOMS DEVELOP, OR YOU HAVE CONCERNS ABOUT YOUR CONDITION; OR IF YOUR CONDITION WORSENS WHILE YOU ARE WAITING FOR YOUR FOLLOW UP APPOINTMENT; EITHER CONTACT YOUR PRIMARY CARE DOCTOR, THE PHYSICIAN WHOSE NAME AND NUMBER YOU WERE GIVEN, OR RETURN TO THE ED IMMEDIATELY. Scripts Hydrocodone Bit/Acetaminophen (HYDROCODONE-APAP 5-325 ) 1 Tab Tablet 1 TAB PO PRN Q6HRS PRN for PAIN for 3 Days, #10 TAB 0 Refills Prov: NASEEM LOVELL APRN 06/03/21 Hydrocodone Bit/Acetaminophen (HYDROCODONE-APAP 5-325 ) 1 Tab Tablet 1 TAB PO PRN Q6HRS PRN for PAIN for 3 Days, #10 TAB 0 Refills Prov: NASEEM LOVELL APRN 06/03/21 NASEEM LOVELL APRN Jun 03, 2021 15:27
--- NOTE | 2021-06-03 15:33 | RAD ---
XR KNEE 3 VIEWS_RT History: Reason: pain / Spl. Instructions: / History: Technique: 2 views right knee Comparison: November 18, 2020 Findings: No dislocation. No acute fracture. Advanced right knee degenerative changes most prominent within the medial compartment. Basilar calcifications. No significant knee joint effusion. Impression: 1. Advanced right knee DJD, similar compared to prior. Electronically signed by: Shmuel Baker DO (06/03/2021 3:30 PM) [id number]
[2021-06-03] MEDS ORDERED: HYDR-2761 PO ×2 (15:51→15:52)
== END 2021-06-03 16:25 | disposition home or self-care (01) ==
LOC: ER 14:41
DX: M25.561 Pain in right knee (principal); M25.551 Pain in right hip; G89.11 Acute pain due to trauma; J45.909 Unspecified asthma, uncomplicated; I10 Essential (primary) hypertension; G89.29 Other chronic pain; Z95.5 Presence of coronary angioplasty implant and graft; W01.0XXA Fall on same level from slipping, tripping and stumbling without subsequent striking against object, initial encounter; Y93.89 Activity, other specified; Y92.098 Other place in other non-institutional residence as the place of occurrence of the external cause; Y99.8 Other external cause status
CPT/HCPCS: 73562; 99283